=== PATIENT | female | born 1965 | race Caucasian/White ===

== ENCOUNTER 2020-01-04 08:25 | Outpatient (REF) | payer OTHER, SELFPAY ==
[2020-01-04 09:13] LABS: MANUAL DIFF FLAG NO
[2020-01-04 09:15] LABS: Basophils Percent Auto 0.2 % (0-2); Eosinophils Absolute Auto 0.1 X10*3/uL (0.0-0.4); Eosinophils Percent Auto 2.7 % (0-4); Hematocrit 42.2 % (37-47); Hemoglobin 13.9 g/dl (12.0-16.0); Imm Gran Abs Auto 0.01 X10*3/uL (0.00-0.03); Imm Gran Pct Auto 0.2 % (0.0-0.4); Lymphocytes Percent Auto 38.1 % (20-40); Mean Corpuscular HGB Conc 32.9 g/dl (31.0-35.0); Mean Corpuscular Hemoglobin 28.7 pg (27.0-33.0); Mean Platelet Volume 10.4 fL (9.4-12.3); Monocytes Absolute Auto 0.5 X10*3/uL (0.1-1.2); Monocytes Percent Auto 8.9 % (2-11); Neutrophils Absolute Auto 2.6 X10*3/uL (2.0-8.3); Neutrophils Percent Auto 49.9 % (45-73); Platelet Count 267 X10*3/uL (160-400); Red Blood Count 4.85 X10*6/uL (4.20-5.50); White Blood Count 5.2 X10*3/uL (4.8-10.8)
[2020-01-04 09:38] LABS: Alanine Aminotransferase 19 U/L (0-31); Albumin Level 4.3 g/dL (3.5-5.0); Alkaline Phosphatase 83 U/L (39-117); Anion Gap 10 (12-20); Aspartate Amino Transferase 16 U/L (5-31); Bilirubin Total 0.5 mg/dL (0.0-1.0); Blood Urea Nitrogen 17 mg/dL (9-16); Calcium 8.5 mg/dL (8.4-10.2); Carbon Dioxide 26 mmol/L (22-29); Chloride 108 mmol/L (96-108); Cholesterol 206 mg/dL; Estimated Glomerular Filt Rate > 60; Glucose Fasting 90 mg/dL (60-99); HDL Cholesterol 46 mg/dL; LDL Cholesterol Calculated 139 mg/dl; Potassium 4.3 mmol/l (3.3-5.1); Sodium 140 mmol/L (135-145); Total Protein 7.2 g/dL (6.5-8.0); Triglycerides 105 mg/dL
== END 2020-01-04 08:26 | disposition home or self-care (01) ==
LOC: HO.LAB 08:25
PROVIDERS: PCP Internal Medicine; Visit Provider Internal Medicine
DX: Z00.00 Encounter for general adult medical examination without abnormal findings (principal); Z13.31 Encounter for screening for depression; N64.4 Mastodynia; E78.00 Pure hypercholesterolemia, unspecified
CPT/HCPCS: 36415; 80053; 80061; 85025

== ENCOUNTER 2020-06-09 22:06 | Emergency (ER) | payer OTHER, SELFPAY ==
--- NOTE | ~2020-06-09 | CT_ITS ---
EXAMINATION: CT ABDOMEN AND PELVIS WITHOUT CONTRAST CLINICAL INFORMATION: Left flank pain. COMPARISON: 01/27/2016. TECHNIQUE: Contiguous axial thin section helical images of the abdomen and pelvis were performed without oral or IV contrast. The data set was reformatted in the coronal and sagittal planes and reviewed on an independent workstation. DLP: 613 mGy-cm. FINDINGS: The visualized lung bases are clear. The visualized portions of the heart are unremarkable. The liver is of normal size and attenuation without focal lesions nor intrahepatic biliary ductal dilation. A normal gallbladder is identified. There is no wall thickening or discernible pericholecystic fluid. The spleen, pancreas, adrenal glands are unremarkable. Both kidneys are of normal size and attenuation. There are bilateral parapelvic cysts. Within the lower pole of the right kidney, there is a 5 mm nonobstructive calculus. Within the upper pole of left kidney, there is a 2 mm nonobstructive calculus. There is mild left perinephric stranding. No ureteral calculi are identified. There is no abdominal free fluid. There is neither mesenteric nor retroperitoneal lymphadenopathy. Normal unopacified loops of small and large bowel are identified. There is no pelvic free fluid. The urinary bladder is unremarkable. There is neither pelvic nor inguinal lymphadenopathy. Bone windows: Neither sclerotic nor lytic bone lesions are identified. CT/CT abdomen pelvis wo con IMPRESSION: Bilateral parapelvic cysts. Nonobstructive renal calculi bilaterally. No obstructing ureteral calculi. Automated exposure control (Care Dose) Adjustment of the mA and/or kv according to patient size (this includes techniques or standardized protocols for targeted exams where dose is matched to indication / reason for exam; i.e. extremities or head).
[2020-06-09 22:40] LABS: MANUAL DIFF FLAG NO
[2020-06-09 22:41] LABS: Basophils Percent Auto 0.2 % (0-2); Eosinophils Absolute Auto 0.1 X10*3/uL (0.0-0.4); Eosinophils Percent Auto 0.9 % (0-4); Hematocrit 43.1 % (37-47); Hemoglobin 14.1 g/dl (12.0-16.0); Imm Gran Abs Auto 0.04 X10*3/uL (0.00-0.03); Imm Gran Pct Auto 0.3 % (0.0-0.4); Lymphocytes Absolute Auto 1.7 X10*3/uL (1.2-4.9); Lymphocytes Percent Auto 14.8 % (20-40); Mean Corpuscular HGB Conc 32.7 g/dl (31.0-35.0); Mean Corpuscular Hemoglobin 28.8 pg (27.0-33.0); Mean Corpuscular Volume 88.1 fL (80-98); Mean Platelet Volume 10.1 fL (9.4-12.3); Monocytes Percent Auto 8.8 % (2-11); Neutrophils Absolute Auto 8.7 X10*3/uL (2.0-8.3); Platelet Count 258 X10*3/uL (160-400); Red Blood Count 4.89 X10*6/uL (4.20-5.50); Red Cell Distribution Width 12.9 % (11.0-16.0); White Blood Count 11.6 X10*3/uL (4.8-10.8)
[2020-06-09 23:10] LABS: Alanine Aminotransferase 13 U/L (0-31); Albumin Level 4.3 g/dL (3.5-5.0); Alkaline Phosphatase 93 U/L (39-117); Anion Gap 15 (12-20); Aspartate Amino Transferase 14 U/L (5-31); Bilirubin Direct 0.2 mg/dL (0.0-0.5); Bilirubin Total 0.5 mg/dL (0.0-1.0); Blood Urea Nitrogen 19 mg/dL (9-16); Calcium 9.2 mg/dL (8.4-10.2); Carbon Dioxide 23 mmol/L (22-29); Chloride 106 mmol/L (96-108); Estimated Glomerular Filt Rate > 60; Glucose Random 103 mg/dL (60-115); Lipase 24 U/L (8-78); Potassium 4.2 mmol/L (3.3-5.1); Sodium 140 mmol/L (135-145); Total Protein 7.5 g/dL (6.5-8.0)
[2020-06-09 23:19] VITALS: BP 125/75; PULSE 116; RESP 18; TEMP 36.8; O2SAT 99; BMI 32.0
[2020-06-10 01:07] VITALS: BP 117/74; PULSE 97; RESP 16; TEMP 36.5; O2SAT 97
--- NOTE | 2020-06-10 01:39 | ED_ITS ---
HPI - Abdominal Pain General Chief Complaint: Abdominal Pain Stated Complaint: ABD PAIN,LT FLANK PAIN Time Seen by Provider: 06/10/20 00:25 Source: patient Mode of arrival: ambulatory History of Present Illness HPI narrative: 55-year-old female with history of renal colic who presents with left-sided flank pain radiating into the left groin area that started yesterday and she treated at home with ibuprofen. This would has not been associated with fever, chills, nausea, vomiting, urinary pain/burning/frequency. Related Data Allergies Allergy/AdvReac Type Severity Reaction Status Date / Time No Known Allergies Allergy Verified 06/09/20 23:23 Review of Systems Review of Systems Pertinent positives and negatives as stated in HPI 10 point review of systems is otherwise negative. Physical Exam Vital Signs: Vital Signs: Last Vital Signs Temp 97.7 F 06/10/20 01:07 Pulse 97 06/10/20 01:07 Resp 16 06/10/20 01:07 BP 117/74 06/10/20 01:07 Pulse Ox 97 06/10/20 01:07 Body Mass Index 32.0 VITAL SIGNS: Reviewed. GENERAL: Well developed, well nourished, in no acute distress. HEAD: Normocephalic/atraumatic NOSE: Nares patent bilateral OROPHARYNX: no oral lesions noted, posterior pharynx clear NECK: Supple, no adenopathy LUNGS: Normal breath sounds. No adventitious sounds or accessory muscle use. SpO2<97> CARDIOVASCULAR: Regular rate and rhythm without noted murmurs ABDOMEN: Soft, non-tender, non-distended with bowel sounds, no CVA tenderness NEUROLOGIC: Alert and oriented x 4. Course Course Course Narrative: 55-year-old female with history and clinical presentation consistent with renal colic. At the time of examination patient has had complete resolution of her symptoms and review of all investigations shows nonobstructing renal calculi. All results and findings were discussed with the patient at bedside and she was encouraged to increase fluid hydration especially with water and use [id number] Tylenol/ibuprofen for pain control. MDM - Abdominal Pain Lab Data Result diagrams: 06/09/20 22:31 06/09/20 22:31 Labs: Lab Results 06/09/20 06/09/20 Range/Units 22:31 22:31 WBC 11.6 H (4.8-10.8) X10*3/uL RBC 4.89 (4.20-5.50) X10*6/uL Hgb 14.1 (12.0-16.0) g/dl Hct 43.1 (37-47) % MCV 88.1 (80-98) fL MCH 28.8 (27.0-33.0) pg MCHC 32.7 (31.0-35.0) g/dl RDW 12.9 (11.0-16.0) % Plt Count 258 (160-400) X10*3/uL MPV 10.1 (9.4-12.3) fL Immature Gran % (Auto) 0.3 (0.0-0.4) % Neut % (Auto) 75.0 H (45-73) % Lymph % (Auto) 14.8 L (20-40) % Nye % (Auto) 8.8 (2-11) % Eos % (Auto) 0.9 (0-4) % Baso % (Auto) 0.2 (0-2) % Lymph # (Auto) 1.7 (1.2-4.9) X10*3/uL Nye # (Auto) 1.0 (0.1-1.2) X10*3/uL Eos # (Auto) 0.1 (0.0-0.4) X10*3/uL Baso # (Auto) 0.0 (0.0-0.2) X10*3/uL Abs Immat Gran (auto) 0.04 H (0.00-0.03) X10*3/uL Absolute Neuts (auto) 8.7 H (2.0-8.3) X10*3/uL Absolute Nucleated RBC 0.000 (0.0-0.012) X10*3/uL Nucleated RBC % (auto) 0.0 (0.0-0.2) /100WBC Sodium 140 (135-145) mmol/L Potassium 4.2 (3.3-5.1) mmol/L Chloride 106 (96-108) mmol/L Carbon Dioxide 23 (22-29) mmol/L Anion Gap 15 (12-20) BUN 19 H (9-16) mg/dL Creatinine 0.87 (0.5-1.4) mg/dL Estim Creat Clear Calc TNP Estimated GFR > 60 Random Glucose 103 (60-115) mg/dL Calcium 9.2 D (8.4-10.2) mg/dL Total Bilirubin 0.5 (0.0-1.0) mg/dL Direct Bilirubin 0.2 (0.0-0.5) mg/dL AST 14 (5-31) U/L ALT 13 (0-31) U/L Alkaline Phosphatase 93 (39-117) U/L Total Protein 7.5 (6.5-8.0) g/dL Albumin 4.3 (3.5-5.0) g/dL Lipase 24 (8-78) U/L Discharge Plan Discharge Clinical Impression: Renal colic Patient Disposition: Home, Self-Care Instructions: Renal Colic (ED) Additional Instructions: Recommend using [id number] Tylenol/ibuprofen as needed for pain control. Increase water intake. Follow-up with your primary care provider in the next 2-3 days. Do not hesitate to return to the emergency department should you experience any acute worsening of your symptoms. Referrals: Virgie Estrella MD [Primary Care Provider] - 2 days (Re-evaluation after seen in the ER for renal colic) Jeremy Avila MD [Physician] - 2 days (Evaluation and outpatient management for renal colic and history of.) Print Language: Polish [facility] Past Medical History Source: nursing notes reviewed Medical History Kidney stones Social History Social History Alcohol intake: former Smoking Status: Never smoker Use of substances other than those prescribed or required for medical reasons: No Advance Directives: No
[2020-06-10 02:16] LABS: Glucose Urine UA NEG (NEG); Leukocyte Esterase Urine NEG (NEG); Nitrite Urine NEG (NEG); PH 6.5 (5.0-8.0); Urine Blood 3+ (NEG); Urine Ketones NEG (NEG); Urine Protein NEG (NEG-TRACE)
[2020-06-10 02:21] LABS: Appearance Urine CLEAR; Color Urine YELLOW
[2020-06-10 02:22] LABS: Bacteria Urine 2+ /LPF; Squamous Epithelial Cell Urine 1+ /LPF
== END 2020-06-10 02:14 | disposition home or self-care (01) ==
PROVIDERS: Emergency Provider Student in an Organized Health Care Education/Training Program; PCP Internal Medicine
DX: N20.0 Calculus of kidney (principal); N28.1 Cyst of kidney, acquired; R10.9 Unspecified abdominal pain; Z87.442 Personal history of urinary calculi
CPT/HCPCS: 36415; 74176; 80048; 80076; 81001; 83690; 85025; 99284

== ENCOUNTER → 2020-07-08 13:57 | Outpatient (BNVA) | payer OTHER, SELFPAY | PROVIDERS: PCP Internal Medicine; Visit Provider Urology | DX: N20.0 Calculus of kidney (principal) | CPT/HCPCS: 99202 ==

== ENCOUNTER 2020-11-05 14:25 | Emergency (ER) | payer OTHER, SELFPAY ==
[2020-11-05 14:36] VITALS: BP 122/80; PULSE 95; RESP 17; TEMP 36.7; O2SAT 98; BMI 30.1
--- NOTE | 2020-11-05 14:38 | ED.GENADULT ---
HPI - General Adult General Chief complaint: General Medical Stated complaint: VACCINE REACTION FLU SYMPTONS Time Seen by Provider: 11/05/20 14:37 Source: patient Mode of arrival: ambulatory Limitations: no limitations History of Present Illness HPI narrative: 55 y/o female presenting to the ER with generalized body aches, fatigue and nausea for the last 6 days after she got her 1st COVID vaccination last Monday. She reports the last few days she has been vomiting and feeling weak. She is not SOB or having chest pain. She would like some medication for the nausea. She has no abdominal pain just soreness from vomiting. No fever but she has some sweats at night that she thinks are hot flashes. No known exposure to COVID prior to her vaccination. MD complaint: nausea and body aches s/p covid vax Onset (ago): day(s) (6) Location: back, abdomen, upper extremity and lower extremity Radiation: non-radiation Severity: moderate Severity scale (1-10): 5 Quality: aching Pain Consistency: intermittent Relieving factors: none Exacerbating factors: eating Associated symptoms: denies other symptoms, loss of appetite, malaise, nausea/vomiting and weakness Treatments prior to arrival: none Related Data Home Medications Medication Instructions Recorded Confirmed meclizine 12.5 mg tablet 12.5 mg PO TID 07/08/20 polyethylene glycol 3350 17 17 g PO DAILY 07/08/20 gram/dose oral powder triamcinolone acetonide 0.5 % appl TOPICAL BID 07/08/20 topical cream Previous Rx's Medication Instructions Recorded allopurinol 100 mg tablet 100 mg PO DAILY 90 Days #90 tab 07/08/20 pyridoxine (vitamin B6) 100 mg 100 mg PO DAILY 90 Days #90 tab 07/08/20 tablet ondansetron 4 mg disintegrating 4 mg PO Q8H PRN #10 tab 11/05/20 tablet Allergies Allergy/AdvReac Type Severity Reaction Status Date / Time No Known Allergies Allergy Verified 07/08/20 14:04 Review of Systems Review of Systems: Constitutional: No Fever, No Chills ENT/Mouth: No sore throat, No Rhinorrhea, No Swallowing Difficulty Cardiovascular: No Chest Pain, No SOB Respiratory: No Cough, No Sputum Gastrointestinal:+ Nausea, + Vomiting, No Diarrhea, No abdominal Pain Genitourinary: No Dysuria, No Urinary Frequency, No Hematuria Musculoskeletal: No joint pain, + Myalgias Skin: No Skin Lesions, No rash Neuro: + Weakness, No Numbness, No Dizziness, + Headache Psych: No Anxiety/Panic, No Depression Heme/Lymph: No Bruising, No Lymphadenopathy PMFSH Past Medical History Medical History (Updated 11/05/20 @ 15:18 by CHRISTINA Gonzales) Kidney stones Social History Social History Alcohol intake: former Advance Directives: No Patient : No Physical Exam Vital Signs: Vital Signs: Last Vital Signs Temp 98.1 F 11/05/20 14:36 Pulse 95 11/05/20 14:36 Resp 17 11/05/20 14:36 BP 122/80 11/05/20 14:36 Pulse Ox 98 11/05/20 14:36 Body Mass Index 30.1 Appearance: Alert. Oriented X3. No acute distress. Eyes: Pupils equal, round and reactive to light. ENT: Pharynx normal. Neck: Normal inspection. Neck supple. CVS: Normal heart rate and rhythm. Pulses normal. Respiratory: No respiratory distress. Breath sounds normal. Abdomen: Soft and nontender. +BS x4 Skin: Skin warm and dry. Normal skin color. Normal skin turgor. No rashes. Extremities: No lower extremity edema. Neuro: Oriented X 3. No motor deficit. No sensory deficit. Course Course Course Narrative: 55 y/o presenting not feeling well for 6 days after her COVID vaccine. She has normal VS and an unremarkable physical exam. Will give SL zofran, get COVID swab and monitor. PO trial after Zofran Reevaluation(s) Reevaluation #1: Patient tolerating PO and appears well. She can be sent home with zofran and supportive care. Agrees with plan. Medical Decision Making Lab Data Labs: Lab Results 11/05/20 Range/Units 15:20 COVID-19 ([facility]) Negative (Negative) COVID-19 Clin Com See Note Critical Care Time Critical Care Time Critical Care Time: No Discharge Plan Discharge Clinical Impression: Nausea Patient Disposition: Home, Self-Care Instructions: Acute Nausea and Vomiting (ED) Additional Instructions: Your COVID test was negative. Take the prescribed anti-nausea medication as directed Rest and stay hydrated. Drink plenty of fluids. Stick to a bland diet while you are not feeling well. Take Motrin and/or Tylenol as needed for body aches. Follow up with your doctor as needed. Recommend proceeding with your 2nd dose of your COVID vaccine when directed Prescriptions: New ondansetron 4 mg tablet,disintegrating 4 mg PO Q8H PRN (Reason: nausea and vomiting) Qty: 10 RF: 0 No Action allopurinol 100 mg tablet 100 mg PO DAILY 90 Days Qty: 90 RF: 1 pyridoxine (vitamin B6) 100 mg tablet 100 mg PO DAILY 90 Days Qty: 90 RF: 1 Referrals: Virgie Estrella MD [Primary Care Provider] - 2 days (f/u adverse reaction to COVID vaccine)
[2020-11-05] MEDS: Ondansetron ODT 4 MG TAB.RAPDIS TRANSLINGU (15:18)
[2020-11-05 15:49] LABS: COVID-19 Test Negative (Negative)
== END 2020-11-05 16:08 | disposition home or self-care (01) ==
PROVIDERS: Physician Assistant; Emergency Provider Emergency Medicine; PCP Internal Medicine
DX: R11.0 Nausea (principal); Z20.822 Contact with and (suspected) exposure to COVID-19
CPT/HCPCS: 36415; 87635; 99283

== ENCOUNTER 2020-12-31 15:21 | Outpatient (REF) | payer OTHER, SELFPAY ==
--- NOTE | ~2020-12-31 | US_ITS ---
EXAMINATION: US RETROPERITONEAL LIMITED (RENAL ONLY) CLINICAL INFORMATION: Calculus of kidney. COMPARISON: CT abdomen and pelvis 06/10/2020. Renal ultrasound 06/20/2011 and 05/11/2009. TECHNIQUE: Real-time imaging of the kidneys. FINDINGS: RIGHT KIDNEY: 11.8 x 6.4 x 4.7 cm (SAG x AP x TRV). The kidney is normal in size, contour, and echogenicity. Renal cortical thickness is normal. Within the upper pole of the right kidney there is a 2.1 cm simple appearing partially exophytic cyst. Several parapelvic cysts are also noted. There is 8 mm nonobstructing mid pole calculus with a few other punctate echogenic foci which either represent tiny nonobstructing calculi versus vascular calcifications. There is no hydronephrosis of the right kidney. LEFT KIDNEY: 11.3 x 5.1 x 5.1 cm (SAG x AP x TRV). The kidney is normal in size, contour, and echogenicity. Renal cortical thickness is normal. Within the upper pole of the left kidney there is a 1.8 cm simple appearing exophytic cyst. Numerous parapelvic cysts are also identified. A few small nonobstructing renal calculi are appreciated, the largest measuring 7 mm. There is no hydronephrosis. US/US renal BI IMPRESSION: 1. Cortical and parapelvic cysts are noted bilaterally. 2. Nonobstructing renal calculi noted bilaterally. 3. No hydronephrosis.
== END 2020-12-31 15:22 | disposition home or self-care (01) ==
LOC: HO.US 15:21
PROVIDERS: PCP Internal Medicine
DX: N20.0 Calculus of kidney (principal)
CPT/HCPCS: 76775

== ENCOUNTER 2021-01-02 08:53 | Outpatient (REF) | payer OTHER, SELFPAY ==
[2021-01-02 09:13] LABS: MANUAL DIFF FLAG NO
[2021-01-02 10:53] LABS: Basophils Percent Auto 0.5 % (0-2); Eosinophils Absolute Auto 0.2 X10*3/uL (0.0-0.4); Eosinophils Percent Auto 3.1 % (0-4); Hematocrit 43.9 % (37.0-47.0); Hemoglobin 14.1 g/dl (12.0-16.0); Imm Gran Abs Auto 0.01 X10*3/uL (0.00-0.03); Imm Gran Pct Auto 0.2 % (0.0-0.4); Lymphocytes Absolute Auto 2.1 X10*3/uL (1.2-4.9); Lymphocytes Percent Auto 37.3 % (20-40); Mean Corpuscular HGB Conc 32.1 g/dl (31.0-35.0); Mean Corpuscular Volume 90.3 fL (80.0-98.0); Mean Platelet Volume 10.7 fL (9.4-12.3); Monocytes Absolute Auto 0.6 X10*3/uL (0.1-1.2); Monocytes Percent Auto 10.1 % (2-11); Neutrophils Absolute Auto 2.7 x10*3/uL (2.0-8.3); Neutrophils Percent Auto 48.8 % (45-73); Platelet Count 273 X10*3/uL (160-400); Red Blood Count 4.86 X10*6/uL (4.20-5.50); Red Cell Distribution Width 13.5 % (11.0-16.0); White Blood Count 5.5 X10*3/uL (4.8-10.8)
[2021-01-02 11:09] LABS: Alanine Aminotransferase 19 U/L (0-31); Albumin Level 4.2 g/dL (3.5-5.0); Alkaline Phosphatase 79 U/L (39-117); Anion Gap 10 (12-20); Aspartate Amino Transferase 18 U/L (5-31); Bilirubin Total 0.7 mg/dL (0.0-1.0); Blood Urea Nitrogen 15 mg/dL (9-16); Calcium 8.9 mg/dL (8.4-10.2); Carbon Dioxide 27 mmol/L (22-29); Chloride 109 mmol/L (96-108); Cholesterol 214 mg/dL; Estimated Glomerular Filt Rate > 60; Glucose Random 87 mg/dL (60-115); HDL Cholesterol 52 mg/dL; LDL Cholesterol Calculated 146 mg/dl; Potassium 4.8 mmol/L (3.3-5.1); Sodium 141 mmol/L (135-145); Total Protein 7.3 g/dL (6.5-8.0); Triglycerides 84 mg/dL
== END 2021-01-02 08:54 | disposition home or self-care (01) ==
LOC: HO.LAB 08:53
PROVIDERS: PCP Internal Medicine; Visit Provider Internal Medicine
DX: Z00.00 Encounter for general adult medical examination without abnormal findings (principal); E78.00 Pure hypercholesterolemia, unspecified; N64.4 Mastodynia
CPT/HCPCS: 36415; 80053; 80061; 85025

== ENCOUNTER → 2021-02-03 14:32 | Outpatient (BNVA) | payer OTHER, SELFPAY | PROVIDERS: PCP Internal Medicine ==

== ENCOUNTER 2021-07-07 15:11 | Outpatient (REF) | payer OTHER, SELFPAY ==
--- NOTE | ~2021-07-07 | US_ITS ---
EXAMINATION: US RETROPERITONEAL LIMITED (RENAL ONLY) CLINICAL INFORMATION: Calculus of kidney. COMPARISON: Renal ultrasound 12/31/2020, CT abdomen and pelvis 06/10/2020, renal ultrasound 06/20/2011. TECHNIQUE: Real-time imaging of the kidneys. FINDINGS: RIGHT KIDNEY: 12.0 x 5.6 x 6.9 cm (SAG x AP x TRV). The kidney is normal in size, contour, and echogenicity. Renal cortical thickness is normal. No hydronephrosis. There is an anechoic cyst in the upper pole measuring 2.7 x 2.3 x 2.3, midpole measuring 1.9 x 1.7 x 1.9 cm, peripelvic midpole measuring 1.9 x 2.1 x 1.3 cm, and peripelvic upper pole measuring 2.4 x 1.8 x 2.3 cm. There are clusters of small echogenic stones midpole measuring 0.8 x 0.7 x 0.9 cm. LEFT KIDNEY: 11.5 x 5.4 x 5.1 cm (SAG x AP x TRV). The kidney is normal in size, contour, and echogenicity. Renal cortical thickness is normal. No hydronephrosis. There are multiple anechoic cysts in the upper pole measuring 1.9 x 1.6 x 1.9 cm, peripelvic region measuring 2.6 x 1.7 x 1.7 cm and midpole measuring 1.6 x 2.2 x 2.1 cm. There are small clusters of echogenic nonobstructing stones in the upper pole measuring 1.3 x 0.8 x 0.5 cm and midpole measuring 0.4 x 0.5 x 0.5 cm. US/US renal BI IMPRESSION: Bilateral anechoic cysts. Bilateral nonobstructive echogenic stones, as described above.
== END 2021-07-07 15:12 | disposition home or self-care (01) ==
LOC: HO.US 15:11
DX: N20.0 Calculus of kidney (principal)
CPT/HCPCS: 76775

== ENCOUNTER → 2021-09-13 14:06 | Outpatient (BNVA) | payer OTHER, SELFPAY | PROVIDERS: PCP Internal Medicine | DX: N20.0 Calculus of kidney (principal) | CPT/HCPCS: 99212 ==

== ENCOUNTER 2021-10-06 08:00 | Outpatient (REF) | payer OTHER, SELFPAY ==
[2021-10-06 08:08] LABS: MANUAL DIFF FLAG NO
[2021-10-06 09:14] LABS: Basophils Percent Auto 0.5 % (0-2); Eosinophils Absolute Auto 0.2 X10*3/uL (0.0-0.4); Eosinophils Percent Auto 3.3 % (0-4); Hematocrit 42.4 % (37.0-47.0); Hemoglobin 13.7 g/dl (12.0-16.0); Imm Gran Abs Auto 0.02 X10*3/uL (0.00-0.03); Imm Gran Pct Auto 0.3 % (0.0-0.4); Lymphocytes Absolute Auto 2.7 X10*3/uL (1.2-4.9); Lymphocytes Percent Auto 41.3 % (20-40); Mean Corpuscular HGB Conc 32.3 g/dl (31.0-35.0); Mean Corpuscular Hemoglobin 28.4 pg (27.0-33.0); Mean Platelet Volume 10.6 fL (9.4-12.3); Monocytes Absolute Auto 0.5 X10*3/uL (0.1-1.2); Monocytes Percent Auto 7.8 % (2-11); Neutrophils Percent Auto 46.8 % (45-73); Platelet Count 249 X10*3/uL (160-400); Red Blood Count 4.82 X10*6/uL (4.20-5.50); Red Cell Distribution Width 13.2 % (11.0-16.0); White Blood Count 6.4 X10*3/uL (4.8-10.8)
[2021-10-06 09:40] LABS: Alanine Aminotransferase 21 U/L (0-31); Albumin Level 4.1 g/dL (3.5-5.0); Alkaline Phosphatase 85 U/L (39-117); Anion Gap 15 (12-20); Aspartate Amino Transferase 18 U/L (5-31); Bilirubin Total 0.4 mg/dL (0.0-1.0); Blood Urea Nitrogen 17 mg/dL (9-16); Calcium 9.1 mg/dL (8.4-10.2); Carbon Dioxide 24 mmol/L (22-29); Chloride 108 mmol/L (96-108); Cholesterol 213 mg/dL; Estimated Glomerular Filt Rate > 60; Glucose Random 87 mg/dL (60-115); HDL Cholesterol 52 mg/dL; LDL Cholesterol Calculated 140 mg/dl; Potassium 4.6 mmol/L (3.3-5.1); Sodium 142 mmol/L (135-145); Total Protein 7.3 g/dL (6.5-8.0); Triglycerides 109 mg/dL
== END 2021-10-06 08:01 | disposition home or self-care (01) ==
LOC: HO.LAB 08:00
PROVIDERS: PCP Internal Medicine; Visit Provider Internal Medicine
DX: E78.00 Pure hypercholesterolemia, unspecified (principal); L29.2 Pruritus vulvae
CPT/HCPCS: 36415; 80053; 80061; 85025

== ENCOUNTER 2021-10-16 19:25 | Emergency (ER) | payer OTHER, SELFPAY ==
[2021-10-16 19:36] VITALS: BP 104/77; PULSE 106; RESP 18; TEMP 36.3; O2SAT 97; BMI 31.3
== END 2021-10-16 22:07 | disposition left against medical advice (07) ==
PROVIDERS: Emergency Provider Emergency Medicine
DX: M79.602 Pain in left arm (principal)
CPT/HCPCS: 99281

== ENCOUNTER 2021-12-04 10:03 | Inpatient (IN) | payer OTHER, SELFPAY ==
[2021-12-04] VITALS (7 sets, daily range): BP systolic 115–160; BP diastolic 69–96; PULSE 69–97; RESP 16–18; TEMP 36.5–37.2; O2SAT 94–100; BMI 31.6
--- NOTE | 2021-12-04 10:15 | ED.ABDPAIN ---
HPI - Abdominal Pain General Chief Complaint: Abdominal Pain Stated Complaint: Flank Pain Time Seen by Provider: 12/04/21 10:05 Source: patient and EMS Mode of arrival: EMS Limitations: no limitations History of Present Illness HPI narrative: 56-year-old female came in for evaluation of left flank pain. Left flank pain started 3 days ago described as dull aching pain to the left flank area with no radiation, pain was associated with nausea and vomiting, patient took ibuprofen relieved the pain then pain returned this morning feels similar to previous pain when she had kidney stones. Patient never had intra-abdominal surgery or needed surgical intervention to remove the kidney stone. No dysuria, no hematuria, no vaginal discharge, no vaginal bleeding. None no diarrhea, normal bowel movement yesterday. Related Data Home Medications Medication Instructions Recorded Confirmed meclizine 12.5 mg tablet 12.5 mg PO TID 07/08/20 polyethylene glycol 3350 17 17 g PO DAILY 07/08/20 gram/dose oral powder triamcinolone acetonide 0.5 % appl topical BID 07/08/20 topical cream erythromycin 5 mg/gram (0.5 %) eye 0 mg ophthalmic (eye) BID 09/13/21 ointment mecobalamin (vitamin B12) 1,000 1,000 mcg PO DAILY 10/15/21 mcg chewable tablet dexamethasone 4 mg tablet 0 mg PO 10/22/21 Previous Rx's Medication Instructions Recorded allopurinol 100 mg tablet 100 mg PO DAILY 90 days #90 tabs 07/08/20 ondansetron 4 mg disintegrating 4 mg PO Q8H PRN nausea and 11/05/20 tablet vomiting #10 tabs pyridoxine (vitamin B6) 100 mg 100 mg PO DAILY 90 days #90 tabs 08/04/21 tablet cyclobenzaprine 10 mg tablet 10 mg PO TID PRN muscle spasm 7 10/15/21 days #20 tabs meloxicam 15 mg tablet 15 mg PO DAILY PRN pain 2 weeks 10/15/21 #14 tabs gabapentin 300 mg capsule 300 mg PO BID 14 days #28 caps 10/22/21 Allergies Allergy/AdvReac Type Severity Reaction Status Date / Time No Known Allergies Allergy Verified 10/22/21 13:41 Review of Systems Review of Systems All other systems are reviewed and are negative Constitutional: Reports as per HPI and Reports no additional constitutional complaints Eyes: Reports as per HPI and Reports no additional eye complaints Reports system reviewed and no additional complaints, except as documented Cardiovascular: Reports as per HPI and Reports no additional cardiovascular complaints Respiratory: Reports as per HPI and Reports no additional respiratory complaints Gastrointestinal: Reports as per HPI and Reports no additional gastrointestinal complaints Genitourinary: Reports no additional female genitourinary complaints Musculoskeletal: Reports no additional musculoskeletal complaints Skin/Breast: Reports system reviewed and no additional complaints, except as docu Psychiatric: Reports no additional psychiatric complaints Endocrine: Reports no additional endocrine complaints Hematologic/Lymphatic: Reports no additional hematologic/lymphatic complaints Allergic/Immunologic: Reports no additional allergic/immunologic complaints Reports system reviewed and no additional complaints, except as documented and Reports Abnormal speech present [facility] Past Medical History Medical History Kidney stones Social History Social History Alcohol intake: former Advance Directives: No Advance Directives Information Provided: Yes Physical Exam ED Vital Signs: Vital Signs - 24 hr 12/04/21 10:07 12/04/21 10:36 12/04/21 12:09 Temperature 97.8 F 97.7 F Pulse Rate 88 76 Respiratory Rate 16 18 16 Blood Pressure 153/96 H 129/74 Pulse Oximetry 95 94 Oxygen Delivery Method Room Air Room Air 12/04/21 15:03 Temperature 98.0 F Pulse Rate 69 Respiratory Rate 17 Blood Pressure 115/71 Pulse Oximetry 97 Oxygen Delivery Method Room Air BMI result Body Mass Index 31.6 Vital signs have been reviewed as appeared to be correct. Blood pressure normal. Heart rate normal. Respiration rate normal. Temperature normal. Oxygen saturation normal. Appearance: Alert. Oriented X3. No acute distress. Head: Normal external exam. Normocephalic. Atraumatic. No Mckinney signs noted. No raccoon eyes noted Eyes: PERRLA. EOMI. Conjunctiva and sclera normal. Eyelids normal. ENT: TM's Normal. Pharynx normal. Uvula midline. Moist mucous membranes. No trismus noted. No drooling noted. No muffled voice noted. Neck: Normal inspection. Neck supple. FROM. No adenopathy. Thyroid Normal. No meningeal signs. No neck mass noted. CVS: Normal heart rate and rhythm. Heart sound normal. No murmurs noted. Pulses normal throughout. Respiratory: No respiratory distress. Painless inspiration. Breath sounds normal. No wheezes/rales/rhonchi noted. Chest nontender. No accessory muscle usage noted or decreased air movement noted. Abdomen: Soft and nontender. Bowel sounds normal in all 4 quadrants. No distention noted. No organomegaly noted. No visible injury noted. Back: Left CVA tenderness. Full range of motion noted. Skin: Skin warm and dry. Normal skin color. Normal skin turgor. No rashes/lesions/lacerations noted. Extremities: No lower extremity edema. Extremities exhibit normal range of motion. Extremities nontender. Neuro: Oriented X 3. Cranial nerve exam: II-XII are grossly intact No motor deficit. No sensory deficit. Reflexes normal. Course Course Course Narrative: 56-year-old female with history of polycystic kidney disease and kidney stones came in with left flank pain for 3 days, CT revealed 4 mm left kidney stone that has been controlled with morphine and Toradol in the ED. CT also revealed incidental abnormal looking gallbladder highly suspicious for malignancy. Case discussed with Dr. Ponce who recommended to get a HIDA scan and MRI of the abdomen which is not available currently in this facility because there is no staff on the weekend. Will admit the patient to hospitalist service for further workup for her gallbladder abnormal looking on the ultrasound and a CT scan. Working diagnosis is HIDA scan, MRI of the abdomen, inpatient GI/IR consultation for possible biopsy. Absence of right upper quadrant tenderness, normal WBCs, normal LFTs making acute cholecystitis is unfavorable diagnosis. MDM - Abdominal Pain Medical Records Attestation: I reviewed the patient's medical records. Lab Data Attestation: I reviewed the patient's lab results. Result diagrams: 12/04/21 10:12/04/21 10:28 Labs: Lab Results 12/04/21 12/04/21 12/04/21 Range/Units 10:28 10:28 12:11 WBC 8.5 (4.8-10.8) X10*3/uL RBC 4.85 (4.20-5.50) X10*6/uL Hgb 13.8 (12.0-16.0) g/dl Hct 41.0 (37.0-47.0) % MCV 84.5 (80.0-98.0) fL MCH 28.5 (27.0-33.0) pg MCHC 33.7 (31.0-35.0) g/dl RDW 13.2 (11.0-16.0) % Plt Count 309 (160-400) X10*3/uL MPV 9.7 (9.4-12.3) fL Immature Gran % (Auto) 0.6 H (0.0-0.4) % Neut % (Auto) 68.6 (45-73) % Lymph % (Auto) 21.4 (20-40) % [place] % (Auto) 7.6 (2-11) % Eos % (Auto) 1.4 (0-4) % Baso % (Auto) 0.4 (0-2) % Lymph # (Auto) 1.8 (1.2-4.9) X10*3/uL [place] # (Auto) 0.7 (0.1-1.2) X10*3/uL Eos # (Auto) 0.1 (0.0-0.4) X10*3/uL Baso # (Auto) 0.0 (0.0-0.2) X10*3/uL Abs Immat Gran (auto) 0.05 H (0.00-0.03) X10*3/uL Absolute Neuts (auto) 5.9 (2.0-8.3) x10*3/uL Absolute Nucleated RBC 0.000 (0.0-0.012) X10*3/uL Nucleated RBC % (auto) 0.0 (0.0-0.2) /100WBC Sodium 142 (135-145) mmol/L Potassium 3.9 (3.3-5.1) mmol/L Chloride 107 (96-108) mmol/L Carbon Dioxide 22 (22-29) mmol/L Anion Gap 17 (12-20) BUN 15 (9-16) mg/dL Creatinine 0.84 (0.5-1.4) mg/dL Estim Creat Clear Calc 74.4 Estimated GFR > 60 Random Glucose 118 H (60-115) mg/dL Calcium 9.1 (8.4-10.2) mg/dL Total Bilirubin 0.6 (0.0-1.0) mg/dL Direct Bilirubin 0.2 (0.0-0.5) mg/dL AST 26 D (5-31) U/L ALT 17 (0-31) U/L Alkaline Phosphatase 78 (39-117) U/L Total Protein 7.2 (6.5-8.0) g/dL Albumin 4.3 (3.5-5.0) g/dL Lipase 19 (8-78) U/L Urine Color Yellow Urine Appearance Clear Urine pH 7.0 (5.0-9.0) Ur Specific [place] 1.010 (1.005-1.025) Urine Protein Negative (Neg-Trace) mg/dL Urine Glucose (UA) Negative (Negative) mg/dL Urine Ketones Trace (Negative) mg/dL Urine Blood Negative (Negative) Urine Nitrite Negative (Negative) Ur Leukocyte Esterase Trace H (Negative) Urine RBC 0-2 (0-2) /HPF Urine WBC 0-5 (0-5) /HPF Ur Squamous Epith Cells 3-5 (0-2) /HPF Urine Bacteria Trace (None Seen) Hyaline Casts 0-2 (0-2) /LPF Imaging Data Gallbladder ultrasound.: Attestation: I personally reviewed and interpreted this imaging study as follows: Radiologist's impression: Abnormal appearance of the gallbladder , seem to be markedly thickened wall with hypoechoic vascular structure within, this is concerning for possible gallbladder neoplasm versus chronic inflammation. ? CT scan - abdomen: Attestation: I personally reviewed and interpreted this imaging study as follows: Radiologist's impression: A 0.4 cm calculus in the left mid to distal ureter with mild left hydroureter. Assessment for left hydronephrosis is limited given the presence of peripelvic cysts. A few additional bilateral nonobstructing renal calculi, as described above. Right renal peripelvic cysts are redemonstrated. Bilateral cortical renal cysts as detailed above are not significantly changed compared to last CT. No further imaging followup of these finding is recommended. ? Small appendicolith is noted in the tip of the appendix. No CT evidence of acute appendicitis. ? Hyperdense appearance of the bladder contents which may represent significant volume sludge. Pericholecystic fat stranding. Recommend clinical correlation for possibility of acute cholecystitis. As clinically deemed necessary, consider correlation with ultrasound. ? Fleischner guidelines were followed. Discharge Plan Discharge Clinical Impression: Kidney stones, Gallbladder disease Patient Disposition: Admitted As Inpatient Prescriptions: No Action pyridoxine (vitamin B6) 100 mg tablet 100 mg PO DAILY 90 Days Qty: 90 1RF ondansetron 4 mg tablet,disintegrating 4 mg PO Q8H PRN (Reason: nausea and vomiting) Qty: 10 0RF mecobalamin (vitamin B12) 1,000 mcg tablet,chewable 1,000 mcg PO DAILY cyclobenzaprine 10 mg tablet 10 mg PO TID PRN (Reason: muscle spasm) 7 Days Qty: 20 0RF meloxicam 15 mg tablet 15 mg PO DAILY PRN (Reason: pain) 14 Days Qty: 14 0RF dexamethasone 4 mg tablet 0 mg PO gabapentin 300 mg capsule 300 mg PO BID 14 Days Qty: 28 0RF polyethylene glycol 3350 17 gram/dose powder 17 g PO DAILY meclizine 12.5 mg tablet 12.5 mg PO TID triamcinolone acetonide 0.5 % cream topical BID allopurinol 100 mg tablet 100 mg PO DAILY 90 Days Qty: 90 1RF erythromycin 5 mg/gram (0.5 %) ointment 0 mg ophthalmic (eye) BID
[2021-12-04] MEDS: 0.9 % Sodium Chloride 1,000 ML 999 ML IV ×2 (10:26→12:32)
[2021-12-04 10:33] LABS: MANUAL DIFF FLAG NO
[2021-12-04] MEDS: Morphine Sulfate 2 MG/ML CARTRIDGE 1 MG IVPUSH (10:36)
[2021-12-04] MEDS: Ketorolac Tromethamine 30 MG/ML VIAL IVPUSH (10:36)
[2021-12-04] MEDS: ondansetron HCL 4 MG/2 ML VIAL IVPUSH (10:37)
[2021-12-04 10:38] LABS: Basophils Percent Auto 0.4 % (0-2); Eosinophils Absolute Auto 0.1 X10*3/uL (0.0-0.4); Eosinophils Percent Auto 1.4 % (0-4); Hemoglobin 13.8 g/dl (12.0-16.0); Imm Gran Abs Auto 0.05 X10*3/uL (0.00-0.03); Imm Gran Pct Auto 0.6 % (0.0-0.4); Lymphocytes Absolute Auto 1.8 X10*3/uL (1.2-4.9); Lymphocytes Percent Auto 21.4 % (20-40); Mean Corpuscular HGB Conc 33.7 g/dl (31.0-35.0); Mean Corpuscular Hemoglobin 28.5 pg (27.0-33.0); Mean Corpuscular Volume 84.5 fL (80.0-98.0); Mean Platelet Volume 9.7 fL (9.4-12.3); Monocytes Absolute Auto 0.7 X10*3/uL (0.1-1.2); Monocytes Percent Auto 7.6 % (2-11); Neutrophils Absolute Auto 5.9 x10*3/uL (2.0-8.3); Neutrophils Percent Auto 68.6 % (45-73); Platelet Count 309 X10*3/uL (160-400); Red Blood Count 4.85 X10*6/uL (4.20-5.50); Red Cell Distribution Width 13.2 % (11.0-16.0); White Blood Count 8.5 X10*3/uL (4.8-10.8)
[2021-12-04 11:01] LABS: Alanine Aminotransferase 17 U/L (0-31); Albumin Level 4.3 g/dL (3.5-5.0); Alkaline Phosphatase 78 U/L (39-117); Anion Gap 17 (12-20); Aspartate Amino Transferase 26 U/L (5-31); Bilirubin Direct 0.2 mg/dL (0.0-0.5); Bilirubin Total 0.6 mg/dL (0.0-1.0); Blood Urea Nitrogen 15 mg/dL (9-16); Calcium 9.1 mg/dL (8.4-10.2); Carbon Dioxide 22 mmol/L (22-29); Chloride 107 mmol/L (96-108); Creatinine Clr Calc Pharmacy 74.4; Estimated Glomerular Filt Rate > 60; Glucose Random 118 mg/dL (60-115); Lipase 19 U/L (8-78); Potassium 3.9 mmol/L (3.3-5.1); Sodium 142 mmol/L (135-145); Total Protein 7.2 g/dL (6.5-8.0)
[2021-12-04 12:19] LABS: Appearance Urine Clear; Color Urine Yellow; Glucose Urine UA Negative (Negative); Leukocyte Esterase Urine Trace (Negative); Nitrite Urine Negative (Negative); UMIC TRIGGER UACC YES; Urine Blood Negative (Negative); Urine Ketones Trace mg/dL (Negative); Urine Protein Negative (Neg-Trace)
[2021-12-04 12:23] LABS: Bacteria Urine Trace (None Seen); Hyaline Casts Urine 0-2 /LPF (0-2); RBC Urine 0-2 /HPF (0-2); WBC Urine 0-5 /HPF (0-5)
[2021-12-04] MEDS: Acetaminophen 325 MG TABLET 650 MG PO (12:30)
--- NOTE | 2021-12-04 18:24 | PHA.MEDREC ---
Pharmacy Consult ? Medication Reconciliation Pharmacy has completed the medication reconciliation. pt only takes ibuprofen as needed currently
--- NOTE | 2021-12-04 18:31 | PM.IMHP ---
History of Present Illness Date of Service: 12/04/21 <CHRISTINA Durham - Last Filed: 12/04/21 18:53> Attending physician on admission: Vivian Ibarra <CHRISTINA Durham - Last Filed: 12/04/21 18:53> Chief Complaint: left flank pain <CHRISTINA Durham - Last Filed: 12/04/21 18:53> 56-year-old female with history of nephrolithiasis following with Urology outpatient presented to the ED this morning for evaluation of left flank pain ongoing for 3 days. Initially had been responsive to ibuprofen but did continue to worsen with the onset of nausea and vomiting on arrival to the hospital today as well as headache. She denies any radiation of the pain. Denies any fevers, chills, dysuria, hematuria, increased urinary frequency urgency, abdominal pain, diarrhea, constipation, blood in stool. Hematology studies were unremarkable, no leukocytosis. Renal function and electrolyte levels are normal. Urinalysis significant only for trace leukocytes, negative nitrates, negative bacteria. CT of the abdomen/pelvis showed 4 mm calculus in the left mid to distal ureter with mild left hydroureter, no hydronephrosis. Additional nonobstructing renal calculi also seen. There is a small appendicolith without appendicitis. Also abnormal appearance of the gallbladder contents possibly representing significant volume sludge as well as pericholecystic fat stranding. Follow-up ultrasound right upper quadrant again reflects abnormal appearance of the gallbladder with markedly thickened gallbladder wall with sludge with hypoechoic avascular structure within concerning for possible gallbladder neoplasm versus chronic inflammation. Patient is afebrile and vital signs are otherwise stable. Case discussed with general surgery recommending admission for further investigation of abnormal gallbladder. Denies smoking hx, etoh use, or illicit drug use. <CHRISTINA Durham - Last Filed: 12/04/21 18:53> Review of Systems Review of Systems: General: No fevers, malaise, unintentional weight loss Cardiovascular: No chest pain, palpitations, or leg edema Respiratory: No shortness of breath, wheezing, cough GI: +n/v. No abdominal pain, diarrhea, constipation, melena, hematochezia : No dysuria, hematuria, increased urinary frequency/urgency MSK:+ left flank pain Neuro: No headaches, weakness, paresthesias Skin: No rashes or lesions <CHRISTINA Durham - Last Filed: 12/04/21 18:53> [facility] Medical History: Medical History Kidney stones <CHRISTINA Durham - Last Filed: 12/04/21 18:53> Family History: Family History Paternal Uncle Lung cancer Father Esophageal cancer Brother Stomach cancer <CHRISTINA Durham - Last Filed: 12/04/21 18:53> Social History: Social History Alcohol intake: former Advance Directives: No Advance Directives Information Provided: Yes <CHRISTINA Durham - Last Filed: 12/04/21 18:53> Meds Allergies/Adverse reactions: Allergies Allergy/AdvReac Type Severity Reaction Status Date / Time No Known Allergies Allergy Verified 10/22/21 13:41 <CHRISTINA Durham - Last Filed: 12/04/21 18:53> Home medications: Home Medications Medication Instructions Recorded Confirmed Last Taken Type ibuprofen 600 mg tablet 600 mg PO BID PRN Pain, Moderate 12/04/21 12/04/21 Unknown History <CHRISTINA Durham - Last Filed: 12/04/21 18:53> Physical Exam Vital Signs and Narrative: Vital Signs: Last Vital Signs Temp 98.0 F 12/04/21 15:03 Pulse 72 12/04/21 17:40 Resp 17 12/04/21 17:40 BP 144/78 H 12/04/21 17:40 Pulse Ox 96 12/04/21 17:40 O2 Del Method 12/04/21 17:40 BMI result Body Mass Index 31.6 <CHRISTINA Durham - Last Filed: 12/04/21 18:53> Constitutional - Awake and Alert, No apparent distress Eyes - PERRLA, EOMI Cardiovascular - S1S2, RRR, No edema Respiratory - Normal lung expansion, Normal respiratory effort, No respiratory distress, CTA bilaterally Gastrointestinal - NT / ND; +BS; No rebound or guarding - No CVA tenderness Extremities - no calf tenderness bilaterally, no swelling Skin - Warm/Dry Neurological - Alert & oriented x3, 5/5 strength BUE and BLE Psychological - Appropriate affect <CHRISTINA Durham - Last Filed: 12/04/21 18:53> Results Labs CBC and Chem 7: : 12/04/21 10:28 12/04/21 10:28 <CHRISTINA Durham - Last Filed: 12/04/21 18:53> Labs: Laboratory Results - last 24 hr 12/04/21 12/04/21 12/04/21 10:28 10:28 12:11 MCV 84.5 MCH 28.5 MCHC 33.7 RDW 13.2 Plt Count 309 MPV 9.7 Immature Gran % (Auto) 0.6 H Neut % (Auto) 68.6 Lymph % (Auto) 21.4 [place] % (Auto) 7.6 Eos % (Auto) 1.4 Baso % (Auto) 0.4 Lymph # (Auto) 1.8 [place] # (Auto) 0.7 Eos # (Auto) 0.1 Baso # (Auto) 0.0 Abs Immat Gran (auto) 0.05 H Absolute Neuts (auto) 5.9 Absolute Nucleated RBC 0.000 Nucleated RBC % (auto) 0.0 Anion Gap 17 Estim Creat Clear Calc 74.4 Estimated GFR > 60 Random Glucose 118 H Calcium 9.1 Total Bilirubin 0.6 Direct Bilirubin 0.2 AST 26 D ALT 17 Alkaline Phosphatase 78 Total Protein 7.2 Albumin 4.3 Lipase 19 Urine Color Yellow Urine Appearance Clear Urine pH 7.0 Ur Specific [place] 1.010 Urine Protein Negative Urine Glucose (UA) Negative Urine Ketones Trace Urine Blood Negative Urine Nitrite Negative Ur Leukocyte Esterase Trace H Urine RBC 0-2 Urine WBC 0-5 Ur Squamous Epith Cells 3-5 Urine Bacteria Trace Hyaline Casts 0-2 <CHRISTINA Durham - Last Filed: 12/04/21 18:53> Imaging Radiologist's Impressions: Impressions Renal Ultrasound 12/04/21 11:12 IMPRESSION: *Numerous bilateral renal cysts compatible with patient history of polycystic kidney disease. *Nonobstructing stones right kidney. *Mild left renal hydronephrosis uncertain etiology. If patient is symptomatic on the left side would recommend correlation with follow-up CT scan without contrast.. Abdomen/Pelvis CT 12/04/21 13:01 IMPRESSION: A 0.4 cm calculus in the left mid to distal ureter with mild left hydroureter. Assessment for left hydronephrosis is limited given the presence of peripelvic cysts. A few additional bilateral nonobstructing renal calculi, as described above. Right renal peripelvic cysts are redemonstrated. Bilateral cortical renal cysts as detailed above are not significantly changed compared to last CT. No further imaging followup of these finding is recommended. Small appendicolith is noted in the tip of the appendix. No CT evidence of acute appendicitis. Hyperdense appearance of the bladder contents which may represent significant volume sludge. Pericholecystic fat stranding. Recommend clinical correlation for possibility of acute cholecystitis. As clinically deemed necessary, consider correlation with ultrasound. Fleischner guidelines were followed. Abdomen Ultrasound 12/04/21 15:50 IMPRESSION: Abnormal appearance of the gallbladder , seem to be markedly thickened wall with hypoechoic vascular structure within, this is concerning for possible gallbladder neoplasm versus chronic inflammation. Surgical evaluation is warranted. May consider further investigation with contrast-enhanced cross-sectional study preferably MRI. (Referring physician staff is being called, to be alerted of the above findings and recommendations.) JS <CHRISTINA Durham - Last Filed: 12/04/21 18:53> Assessment and Plan (1) Gallbladder disease: Status: Acute <CHRISTINA Durham - Last Filed: 12/04/21 18:53> (2) Kidney stones: Status: Acute <CHRISTINA Durham - Last Filed: 12/04/21 18:53> 56-year-old female with history of nephrolithiasis following with Urology outpatient admitted for gallbladder disease. 1-Gallbladder disease etiology unclear -Abd ct showing abnormal gallbladder. Follow up u/s reflects abnormal appearance of the gallbladder with markedly thickened gallbladder wall with sludge with hypoechoic avascular structure within concerning for possible gallbladder neoplasm versus chronic inflammation. -Sludge and pericholecystic fat stranding but no other clinical findings to support acute cholecystitis at this time until HIDA scan. Hold on abx at this time -HIDA scan ordered -Gastroenterology and general surgery consulted -NPO after midnight 2-Left 4mm ureteral stone with mild hydroureter -Given size should pass spontaneously, but will give flomax given the mild hydroureter -No evidence of infection or hydronephrosis -IVF -Pain management torodol and morphine with pain scale -Ondansetron prn nausea 3-Anxiety -Pt quite anxious about possibility of malignancy. PRN lorazepam ordered DVT prophylaxis- lovenox Full code Pt requires inpt stay due to possible acute cholecystitis <CHRISTINA Durham - Last Filed: 12/04/21 18:53> 56-year-old female with history of nephrolithiasis following with Urology outpatient admitted for gallbladder disease. 1-Gallbladder disease etiology unclear -Abd ct showing abnormal gallbladder. Follow up u/s reflects abnormal appearance of the gallbladder with markedly thickened gallbladder wall with sludge with hypoechoic avascular structure within concerning for possible gallbladder neoplasm versus chronic inflammation. -Sludge and pericholecystic fat stranding but no other clinical findings to support acute cholecystitis at this time until HIDA scan. Hold on abx at this time -HIDA scan ordered -Gastroenterology and general surgery consulted -NPO after midnight 2-Left 4mm ureteral stone with mild hydroureter -Given size should pass spontaneously, but will give flomax given the mild hydroureter -No evidence of infection or hydronephrosis -IVF -Pain management torodol and morphine with pain scale -Ondansetron prn nausea 3-Anxiety -Pt quite anxious about possibility of malignancy. PRN lorazepam ordered DVT prophylaxis- lovenox Full code Pt requires inpt stay due to possible acute cholecystitis Addendum to history and physical by mid-level provider, CHRISTINA Collado I interviewed and examined the patient. I discussed their presentation and management with the mid-level provider. I reviewed the history and physical and agree with the documentation, with the following additions and corrections: 56yo F with hx nephrolithiasis presenting with L flank pain that has resolved but found to have abnormal gallbladder concerning for chronic cholecystitis vs gallbladder neoplasm. Also found to have Covid-19 without respiratory symptoms or hypoxia. Plan admit to M/S, consult GI + Gen Surg, obtain HIDA and abd MRI. Remdesivir for Covid-19 given risk factor of obesity. <Vivian Ibarra MD - Last Filed: 12/05/21 13:39> Quality Stroke Does the patient have a stroke diagnosis?: No <CHRISTINA Durham - Last Filed: 12/04/21 18:53> VTE Prior VTE?: No <CHRISTINA Durham - Last Filed: 12/04/21 18:53> VTE Risk Level:: Medical - moderate - high <CHRISTINA Durham - Last Filed: 12/04/21 18:53> VTE Device Contraindication: Treatment Not Indicated <CHRISTINA Durham - Last Filed: 12/04/21 18:53> VTE Drug Contraindication: N/A - Med Ordered <CHRISTINA Durham - Last Filed: 12/04/21 18:53>
[2021-12-04 19:00] LABS: COVID-19 Test Positive (Negative)
[2021-12-04] MEDS: Lactated Ringers 1,000 ML 100 ML IVCONT (19:34)
[2021-12-04] MEDS: Tamsulosin HCL 0.4 MG CAPSULE PO (20:02)
[2021-12-04] MEDS: Enoxaparin Sodium 40 MG/0.4 ML SYRINGE SUBCUT (20:02)
[2021-12-05 00:05] VITALS: BP 121/62; PULSE 72; RESP 18; TEMP 36.7; O2SAT 95
--- NOTE | 2021-12-05 05:32 | PC.NURSE ---
patient refuses IVF despite education
--- NOTE | 2021-12-05 07:12 | PC.NURSE ---
Assumed care for this pt at this time
[2021-12-05] MEDS: Tamsulosin HCL 0.4 MG CAPSULE PO (07:59)
[2021-12-05] MEDS: 0.9 % Sodium Chloride Flush 3 ML SYRINGE IVFLUSH (07:59)
[2021-12-05 08:47] VITALS: BP 127/67; PULSE 84; RESP 18; TEMP 36.1; O2SAT 93
--- NOTE | 2021-12-05 10:29 | PM.CNGS ---
History of Present Illness Consult details Consult date: 12/05/21 Reason for consult: other (Abnormal CT and abdominal ultrasound) Narrative: The patient is a 56-year-old woman from [place] who denies any family history of GI malignancy. She denies any indigestion, epigastric or right upper quadrant symptoms of postprandial pain but was seen in the emergency department yesterday because of left flank pain. She was noted to have a kidney stone and also noted to have abnormalities to her gallbladder fossa concerning for malignancy. I was asked to help evaluate and direct her care given the rarity of gallbladder disease. As noted, the patient denies any symptoms to suggest chronic calculous cholecystitis. She denies any family history of gallbladder disease. She denies any family history of GI malignancy, however EMR shows esophageal cancer in her father and a brother with stomach cancer. She denies any unexplained weight loss. She is COVID positive and noted that she was not feeling well a few days ago then started to developed sharping left flank pain and presented to the emergency room evaluation. Review of Systems Review of Systems: Yes all other systems are reviewed and are negative Constitutional: Constitutional: Reports as per [facility] Past Medical History Medical History Kidney stones Family History Family History Paternal Uncle Lung cancer Father Esophageal cancer Brother Stomach cancer Social History Social History Alcohol intake: former Advance Directives: No Advance Directives Information Provided: Yes Meds Allergies Allergy/AdvReac Type Severity Reaction Status Date / Time No Known Allergies Allergy Verified 10/22/21 13:41 Active Medications: Current Medications Enoxaparin Sodium (Enoxaparin Sodium 40 Mg/0.4 Ml Syringe) 40 mg SUBCUT Q24H [facility] Last Admin: 12/04/21 20:02 Dose: 40 mg Lactated Ringer's (Lr) 1,000 mls @ 100 mls/hr IVCONT .Q10H [facility] Last Infusion: 12/05/21 05:39 Dose: Infused Ketorolac Tromethamine (Ketorolac Tromethamine 30 Mg/Ml Vial) 30 mg IVPUSH Q6H PRN PRN Reason: Pain, Moderate (Pain Scale 4-6 Lorazepam (Lorazepam 0.5 Mg Tablet) 0.5 mg PO Q6H PRN PRN Reason: Anxiety Morphine Sulfate (Morphine Sulfate 2 Mg/Ml Cartridge) 1 mg IVPUSH Q4H PRN; Protocol PRN Reason: Pain, Severe (Pain Scale 7-10) Ondansetron HCl (Ondansetron Odt 4 Mg Tab.Rapdis) 4 mg TRANSLINGU Q6H PRN PRN Reason: Nausea and Vomiting Sodium Chloride (0.9 % Sodium Chloride Flush 3 Ml Syringe) 3 ml IVFLUSH QSHIFT [facility] Last Admin: 12/05/21 07:59 Dose: 3 ml Tamsulosin HCl (Tamsulosin Hcl 0.4 Mg Capsule) 0.4 mg PO DAILY [facility] Last Admin: 12/05/21 07:59 Dose: 0.4 mg Home Medications Medication Instructions Recorded Confirmed Last Taken Type ibuprofen 600 mg tablet 600 mg PO BID PRN Pain, Moderate 12/04/21 12/04/21 Unknown History Physical Exam Vital Signs: Vital Signs: Last Vital Signs Temp 97 F 12/05/21 08:47 Pulse 84 12/05/21 08:47 Resp 18 12/05/21 08:47 BP 127/67 12/05/21 08:47 Pulse Ox 93 12/05/21 08:47 O2 Del Method 12/05/21 08:47 BMI result Body Mass Index 31.6 The patient is non-toxic & in good spirits NC/AT, PERRLA, EOMI Mood, affect & judgment all appear appropriate Sclera anicteric conjunctiva pink and moist Neck is supple with no masses, adenopathy or bruits Heart is regular, normal S1-S2 no rubs or murmurs Lungs are clear and equal anteriorly with no audible wheezing, rubs or dullness to percussion Abdomen is overweight with no demonstrable hernias. No HSM, rebound, rigidity, guarding, masses or bruits are present. Rectal exam is deferred Skin has good turgor and is free of rashes Extremities free of cyanosis clubbing edema Results Labs Result diagrams: 12/04/21 10:12/04/21 10:28 Labs: Abnormal lab results 12/04/21 12/04/21 12/04/21 Range/Units : 10: 12:11 Immature Gran % (Auto) 0.6 H (0.0-0.4) % Abs Immat Gran (auto) 0.05 H (0.00-0.03) X10*3/uL Random Glucose 118 H (60-115) mg/dL Ur Leukocyte Esterase Trace H (Negative) COVID-19 ([facility]) (Negative) 12/04/21 Range/Units 18:48 Immature Gran % (Auto) (0.0-0.4) % Abs Immat Gran (auto) (0.00-0.03) X10*3/uL Random Glucose (60-115) mg/dL Ur Leukocyte Esterase (Negative) COVID-19 ([facility]) Positive A (Negative) Short CBC 12/04/21 Range/Units 10:28 WBC 8.5 (4.8-10.8) X10*3/uL Hgb 13.8 (12.0-16.0) g/dl Hct 41.0 (37.0-47.0) % Plt Count 309 (160-400) X10*3/uL BMP 12/04/21 10:28 Sodium 142 Potassium 3.9 Chloride 107 Carbon Dioxide 22 BUN 15 Creatinine 0.84 Calcium 9.1 Liver Function 12/04/21 Range/Units 10:28 Total Bilirubin 0.6 (0.0-1.0) mg/dL Direct Bilirubin 0.2 (0.0-0.5) mg/dL AST 26 D (5-31) U/L ALT 17 (0-31) U/L Alkaline Phosphatase 78 (39-117) U/L Albumin 4.3 (3.5-5.0) g/dL Urine 12/04/21 Range/Units 12:11 Urine Color Yellow Urine Appearance Clear Urine pH 7.0 (5.0-9.0) Ur Specific Rochert 1.010 (1.005-1.025) Urine Protein Negative (Neg-Trace) mg/dL Urine Glucose (UA) Negative (Negative) mg/dL All other labs normal. Imaging Abdomen CT scan report/results: report reviewed and image reviewed CT scan - pelvis: report reviewed and image reviewed Abdominal ultrasound report/results: report reviewed and image reviewed Additional studies: HIDA scan and MRCP are pending Assessment and Plan (1) Abnormal CT of the abdomen: Status: Acute (2) Kidney stones: Status: Acute (3) Family history of GI tract cancer: Status: Acute Plan The patient very clearly is not having symptoms of chronic calculous cholecystitis or biliary colic. The question remains whether not the CT and ultrasound are demonstrating an early gallbladder malignancy or an anomaly that could be related to artifact or COVID. CEA is in normal parameters; CA 19 9 is pending From a surgical perspective, the patient can have a regular diet after her HIDA and MRI are performed. If there are questions regarding malignancy, I am happy to speak with hepatobiliary surgery or transplant surgery at a larger institution/tertiary care center given the complexity of resection. Since the patient receive narcotics yesterday, it is possible her HIDA scan may be abnormal and show non or delayed visualization. This can also be secondary to any obstruction of the cystic duct including malignancy. Await studies. Procedures Date of Service Date of Service: 12/05/21
[2021-12-05 12:20] VITALS: BP 135/87; PULSE 85; RESP 20; TEMP 36.3; O2SAT 96
--- NOTE | 2021-12-05 14:01 | HO.PM.IMPN ---
Subjective Subjective Date of Service: 12/05/21 Interval History: hungry no LUQ pain no RUQ pain either no N/V no fever no cough Review of Systems Review of Systems: Yes all other systems are reviewed and are negative Physical Exam Vital Signs: Vital Signs: Last Vital Signs Temp 97.3 F 12/05/21 12:20 Pulse 85 12/05/21 12:20 Resp 20 12/05/21 12:20 BP 135/87 12/05/21 12:20 Pulse Ox 96 12/05/21 12:20 O2 Del Method 12/05/21 12:20 BMI result Body Mass Index 31.6 Gen: in no acute distress HEENT: sclera anicteric, moist mucus membranes Neck: supple Lungs: clear to auscultation bilaterally Heart: regular rate and rhythm, no murmurs Abd: soft, non-tender, non-distended, obese Ext: no edema Skin: warm/well-perfused Neuro: alert and oriented x3, no focal findings Psych: appropriate affect Objective Data Active Medications Enoxaparin Sodium (Enoxaparin Sodium 40 Mg/0.4 Ml Syringe) 40 mg SUBCUT Q24H [facility] Last Admin: 12/04/21 20:02 Dose: 40 mg Documented By: ZAKIYA Lactated Ringer's (Lr) 1,000 mls @ 100 mls/hr IVCONT .Q10H [facility] Last Infusion: 12/05/21 05:39 Dose: 100 mls/hr Documented By: JD Ketorolac Tromethamine (Ketorolac Tromethamine 30 Mg/Ml Vial) 30 mg IVPUSH Q6H PRN PRN Reason: Pain, Moderate (Pain Scale 4-6 Lorazepam (Lorazepam 0.5 Mg Tablet) 0.5 mg PO Q6H PRN PRN Reason: Anxiety Morphine Sulfate (Morphine Sulfate 2 Mg/Ml Cartridge) 1 mg IVPUSH Q4H PRN; Protocol PRN Reason: Pain, Severe (Pain Scale 7-10) Ondansetron HCl (Ondansetron Odt 4 Mg Tab.Rapdis) 4 mg TRANSLINGU Q6H PRN PRN Reason: Nausea and Vomiting Sodium Chloride (0.9 % Sodium Chloride Flush 3 Ml Syringe) 3 ml IVFLUSH QSHIFT [facility] Last Admin: 12/05/21 07:59 Dose: 3 ml Documented By: WINSTON Tamsulosin HCl (Tamsulosin Hcl 0.4 Mg Capsule) 0.4 mg PO DAILY [facility] Last Admin: 12/05/21 07:59 Dose: 0.4 mg Documented By: WINSTON Labs CBC & Chem 7: 12/04/21 10:28 12/04/21 10:28 Labs: Laboratory Results - last 24 hr 12/04/21 12/04/21 18:48 18:48 ITS Impressions Renal Ultrasound 12/04/21 11:12 IMPRESSION: *Numerous bilateral renal cysts compatible with patient history of polycystic kidney disease. *Nonobstructing stones right kidney. *Mild left renal hydronephrosis uncertain etiology. If patient is symptomatic on the left side would recommend correlation with follow-up CT scan without contrast.. Abdomen/Pelvis CT 12/04/21 13:01 IMPRESSION: A 0.4 cm calculus in the left mid to distal ureter with mild left hydroureter. Assessment for left hydronephrosis is limited given the presence of peripelvic cysts. A few additional bilateral nonobstructing renal calculi, as described above. Right renal peripelvic cysts are redemonstrated. Bilateral cortical renal cysts as detailed above are not significantly changed compared to last CT. No further imaging followup of these finding is recommended. Small appendicolith is noted in the tip of the appendix. No CT evidence of acute appendicitis. Hyperdense appearance of the bladder contents which may represent significant volume sludge. Pericholecystic fat stranding. Recommend clinical correlation for possibility of acute cholecystitis. As clinically deemed necessary, consider correlation with ultrasound. Fleischner guidelines were followed. Abdomen Ultrasound 12/04/21 15:50 IMPRESSION: Abnormal appearance of the gallbladder , seem to be markedly thickened wall with hypoechoic vascular structure within, this is concerning for possible gallbladder neoplasm versus chronic inflammation. Surgical evaluation is warranted. May consider further investigation with contrast-enhanced cross-sectional study preferably MRI. (Referring physician staff is being called, to be alerted of the above findings and recommendations.) JS Carcinoembryonic Ag 2.40 COVID-19 ([facility]) Positive A COVID-19 Clin Com See Note Assessment and Plan (1) Abnormal CT of the abdomen: Status: Acute Plan d#2 56yo F with polycistic kidney dz, hx nephrolithiasis, presenting with L flank pain that has since resolved but then had CT + US findings concerning for possible gallbladder CA vs chronic cholecystitis # gallbladder thickening - GI + Gen Surg consults, MRI/MRCP and HIDA scans pending # nephrolithiasis with mild hydroureter - hydration, tamsulosin, may pass on its own # VTE ppx: LMWH In my clinical judgment, the patient requires continued hospitalization for the following reasons: cholecystitis Quality Stroke Does the patient have a stroke diagnosis?: No VTE Prior VTE?: No VTE Risk Level:: Medical - moderate - high VTE Device Contraindication: Treatment Not Indicated VTE Drug Contraindication: N/A - Med Ordered
[2021-12-05 14:06] VITALS: BP 139/71; PULSE 91; O2SAT 96
--- NOTE | 2021-12-05 17:31 | PM.EVENT ---
Event Note Date of Service: 12/05/21 Event Note: GI Consult-Full note dictated. History via patient and EMR. Imp: 56 yo female presenting for evaluation of left-sided kidney kidney stone disease and incidentally found to have gallbladder disease. Her MRI and HIDA scan today are suggestive of chronic cholecystitis, but without any sign of biliary disease nor mass. Her LFT's have been normal as well. She is presently asymptomatic after eating her dinner. She appears quite comfortable. Her abdominal exam is presently benign. She is anicteric and afebrile. Rec: I would recommend eventual cholecystectomy, but will defer the timing of that to the surgical service. I don't think an ERCP is presently required. Given the CT findings I would recommend Urology consultation before discharge as well. D/W patient and she is comfortable with this plan. Thanks.
[2021-12-05 19:44] VITALS: BP 149/65; PULSE 93; RESP 14; TEMP 36.6; O2SAT 96
[2021-12-05] MEDS: Enoxaparin Sodium 40 MG/0.4 ML SYRINGE SUBCUT (20:24)
[2021-12-06] VITALS: BP 129/74; PULSE 87; RESP 16; TEMP 36.6; O2SAT 95
--- NOTE | 2021-12-06 01:55 | CONS_ITS ---
DATE OF SERVICE: 12/05/2021 REASON FOR CONSULTATION: Abnormal imaging of gallbladder. HISTORY OF PRESENT ILLNESS: The patient is a 56-year-old female with known left-sided kidney stone disease, who presented to the ER for evaluation of left-sided flank pain. Her imaging studies did reveal a left ureteral kidney stone with some hydronephrosis, but also described gallbladder abnormalities prompting her admission. The patient does describe typical kidney stone pain along the left flank area, but has also had a couple of episodes of generalized abdominal pain over the past week or so. This was not associated with any signs of jaundice nor fever. She has otherwise been eating comfortably and denies any chronic heartburn or dysphagia. She reports that her bowel movements have been somewhat constipated, but there has been no hematochezia nor melena. She does not have any pre-existing known history of gallbladder disease in herself nor family members. Since admission here, she has been able to eat comfortably and denies any abdominal pain. She has been afebrile. Again, there has been no evidence of jaundice. MEDICATIONS: Medications at home, none. Medications here in the hospital include acetaminophen, Lovenox, Toradol p.r.n., Ativan p.r.n., morphine p.r.n., Zofran p.r.n., and Flomax. PAST MEDICAL HISTORY: Kidney stones. She is followed by Dr. Avila for that and describes previous ureteral stent placement. She denies a history of heart disease, diabetes, stroke, lung disease, nor kidney disease otherwise. She denies any surgeries. 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 She does not smoke nor use any significant amounts of alcohol. FAMILY HISTORY: Noncontributory. PHYSICAL EXAMINATION: GENERAL: The patient is a pleasant, alert, comfortable-appearing female. She just finished dinner and is not having any pain. She has been afebrile. Skin is warm dry. Anicteric sclerae. Moist mucous membranes. NECK: Supple without lymphadenopathy. CARDIAC: Normal S1, S2. ABDOMEN: Soft, nondistended. Normal bowel sounds. Nontender without palpable mass. EXTREMITIES: Without edema. LABORATORY DATA: White blood cell count 8.5, hemoglobin 13.8, platelets 309,000. Normal electrolytes. BUN 15, creatinine 0.84. LFTs are normal. CEA level is 2.4. Her initial abdominal CT scan from yesterday described a left ureteral stone with some hydronephrosis. The CT scan also describes a hyperdense appearance of the gallbladder contents suggestive of sludge, although the radiologist raised a suspicion of possible neoplasm. There was no evidence of any biliary disease. Her abdominal ultrasound also raised a suspicion of possible gallbladder neoplasm or chronic inflammation. She had a MRI of the abdomen today that describes findings consistent with a large amount of sludge in the gallbladder with some mild gallbladder wall enhancement and some fat stranding around the gallbladder consistent with cholecystitis. There was no evidence of any biliary disease nor gallbladder mass. Finally, a HIDA scan done today describes nonvisualization of the gallbladder after 4 hours consistent with cystic duct obstruction, but there is normal liver uptake and a patent common bile duct with good drainage of isotope into the duodenum. IMPRESSION: Given the patient's clinical history and imaging studies, this appears to be related to some chronic gallbladder disease as opposed to any type of gallbladder malignancy. She does not appear to have any biliary disease based on laboratories nor imaging studies. At this point I would recommend eventual cholecystectomy, but will defer the timing of that to the surgical service. I do not think an ERCP is required preoperatively. I would also recommend a urology consultation before discharge given the presence of the left ureteral stone and hydronephrosis. Please consult me again if I could be of any further assistance during her hospitalization. This has all been discussed with the patient in detail and she is comfortable with that plan. Thank you for the consultation. MD SUGAR Peacock/NATI / [id number] [email or web address]
[2021-12-06 04:45] VITALS: BP 105/78; PULSE 74; RESP 20; TEMP 36.2; O2SAT 96
[2021-12-06 06:14] LABS: Hematocrit 35.9 % (37.0-47.0); Hemoglobin 12.1 g/dl (12.0-16.0); Mean Corpuscular HGB Conc 33.7 g/dl (31.0-35.0); Mean Corpuscular Hemoglobin 28.9 pg (27.0-33.0); Mean Corpuscular Volume 85.9 fL (80.0-98.0); Mean Platelet Volume 9.7 fL (9.4-12.3); Platelet Count 309 X10*3/uL (160-400); Red Blood Count 4.18 X10*6/uL (4.20-5.50); Red Cell Distribution Width 13.4 % (11.0-16.0); White Blood Count 6.9 X10*3/uL (4.8-10.8)
[2021-12-06 06:20] LABS: INTERNATIONAL NORM RATIO 1.1 (0.9-1.1); Prothrombin Time 12.1 SEC (10.0-13.1)
[2021-12-06 06:36] LABS: Alanine Aminotransferase 14 U/L (0-31); Albumin Level 3.8 g/dL (3.5-5.0); Alkaline Phosphatase 67 U/L (39-117); Anion Gap 14 (12-20); Aspartate Amino Transferase 14 U/L (5-31); Bilirubin Total 0.4 mg/dL (0.0-1.0); Blood Urea Nitrogen 14 mg/dL (9-16); C Reactive Protein 1.66 mg/dL (< or = 0.50); Carbon Dioxide 24 mmol/L (22-29); Chloride 108 mmol/L (96-108); Creatinine Clr Calc Pharmacy 82.2; Estimated Glomerular Filt Rate > 60; Glucose Random 90 mg/dL (60-115); Lactate Dehydrogenase 149 U/L (122-220); Potassium 3.7 mmol/L (3.3-5.1); Sodium 142 mmol/L (135-145); Total Protein 6.3 g/dL (6.5-8.0)
[2021-12-06 06:53] LABS: Ferritin 167 ng/mL (10-250)
--- NOTE | 2021-12-06 10:13 | P.DS_ITS ---
DS: Providers Provider Date of Service: 12/06/21 Date of admission: 12/04/21 18:16 Date of discharge: 12/06/21 Primary care physician: Zunilda Physician Consults: 12/04/21 17:07 Consult to General Surgery Stat Consulting Provider: Mark Ponce Reason for consultation: Gallbladder disease concern Has provider been notified: Yes 12/04/21 18:40 Consult to Gastroenterology Routine Consulting Provider: Steve Stout Reason for consultation: abnomal gallbladder Consult to General Surgery Routine Consulting Provider: Mark Ponce Reason for consultation: abnomal gallbladder DS: Diagnosis Discharge Diagnosis (1) Abnormal CT of the abdomen: Status: Acute (2) Gallbladder disease: Status: Acute (3) Gallbladder sludge: Status: Acute (4) Gallbladder polyp: Status: Acute (5) Kidney stones: Status: Acute (6) COVID-19: Status: Acute DS: Summary Hospital Course Hospital Course: from admission H+P by CHRISTINA Collado, 12/04/21: 56-year-old female with history of nephrolithiasis following with Urology outpatient presented to the ED this morning for evaluation of left flank pain ongoing for 3 days.? Initially had been responsive to ibuprofen but did continue to worsen with the onset of nausea and vomiting on arrival to the hospital today as well as headache.? She denies any radiation of the pain.? Denies any fevers, chills, dysuria, hematuria, increased urinary frequency urgency, abdominal pain, diarrhea, constipation, blood in stool.? Hematology studies were unremarkable, no leukocytosis.? Renal function and electrolyte levels are normal.? Urinalysis significant only for trace leukocytes, negative nitrates, negative bacteria.? CT of the abdomen/pelvis showed 4 mm calculus in the left mid to distal ureter with mild left hydroureter, no hydronephrosis.? Additional nonobstructing renal calculi also seen.? There is a small appendicolith without appendicitis.? Also abnormal appearance of the gallbladder contents possibly representing signi ficant volume sludge as well as pericholecystic fat stranding.? Follow-up ultrasound right upper quadrant again reflects abnormal appearance of the gallbladder with markedly thickened gallbladder wall with sludge with hypoechoic avascular structure within concerning for possible gallbladder neoplasm versus chronic inflammation.? Patient is afebrile and vital signs are otherwise stable. Case discussed with general surgery recommending admission for further investigation of abnormal gallbladder. Denies smoking hx, etoh use, or illicit drug use. This 56yo F with polycistic kidney disease and history of nephrolithiasis presented with L flank pain that has resolved in the ED, but then had CT findings concerning for acute cholecystitis. She was admitted to the hospitalist service. An US of the gallbladder showed thickened gallbladder wall with sludge with hypoechoic avascular structure concerning for neoplasm versus chronic infammation. A HIDA scan demonstrated nonfilling of the cystic duct; however, she had absolutely no RUQ pain or tenderness and tolerated a regular diet without any nausea, vomiting, or pain. An MRI showed that a large amount of gallbladder sludge with mild wall enhancement and pericholecystic fat stranding. There was a nonspecific 0.7 cm non-enhacing focus abutting the wall of the gallbladder fundus that could be adherent calculus versus polyp. Surgery and GI were consulted. Malignancy was deemed extremely unlikely, as was any acute cholecystitis in the complete absence of biliary colic symptoms. She was discharged home with a general surgery referral for outpatient surveillance of the gallbaldder with US. As for the kidney stone, she had no symptoms of renal colic. She was placed on tamsulosin, instructed to drink plenty of fluids, and follow up with Urology as an outpatient. Time Spent with Patient Time attestation: Total time spent providing and/or coordinating discharge services: Discharge coordination time: Greater than 30 minutes Quality: Safe Use of Opioids Does Pt have an Active Cancer Diagnosis on the Problem List?: No Quality: Stroke Does the patient have a stroke diagnosis?: No Physical Exam Vital Signs: Vital Signs: Last Vital Signs Temp 97.2 F 12/06/21 04:45 Pulse 74 12/06/21 04:45 Resp 20 12/06/21 04:45 BP 105/78 12/06/21 04:45 Pulse Ox 96 12/06/21 04:45 O2 Del Method 12/06/21 04:45 BMI result Body Mass Index 31.6 Gen: in no acute distress HEENT: sclera anicteric, moist mucus membranes Neck: supple Lungs: clear to auscultation bilaterally Heart: regular rate and rhythm, no murmurs Abd: soft, non-tender, non-distended, obese; no Chung sign : no flank tenderness, no CVA tenderness Ext: no edema Skin: warm/well-perfused Neuro: alert and oriented x3, no focal findings Psych: appropriate affect DS: Data Data Completed and Pending Completed studies during hospitalization [Text1]: Laboratory Results WBC 6.9 X10*3/uL (4.8-10.8) 12/06/21 06:02 RBC 4.18 X10*6/uL (4.20-5.50) L 12/06/21 06:02 Hgb 12.1 g/dl (12.0-16.0) 12/06/21 06:02 Hct 35.9 % (37.0-47.0) L 12/06/21 06:02 MCV 85.9 fL (80.0-98.0) 12/06/21 06:02 MCH 28.9 pg (27.0-33.0) 12/06/21 06:02 MCHC 33.7 g/dl (31.0-35.0) 12/06/21 06:02 RDW 13.4 % (11.0-16.0) 12/06/21 06:02 Plt Count 309 X10*3/uL (160-400) 12/06/21 06:02 MPV 9.7 fL (9.4-12.3) 12/06/21 06:02 Immature Gran % (Auto) 0.6 % (0.0-0.4) H 12/04/21 10:28 Neut % (Auto) 68.6 % (45-73) 12/04/21 10:28 Lymph % (Auto) 21.4 % (20-40) 12/04/21 10:28 [place] % (Auto) 7.6 % (2-11) 12/04/21 10:28 Eos % (Auto) 1.4 % (0-4) 12/04/21 10:28 Baso % (Auto) 0.4 % (0-2) 12/04/21 10:28 Lymph # (Auto) 1.8 X10*3/uL (1.2-4.9) 12/04/21 10:28 [place] # (Auto) 0.7 X10*3/uL (0.1-1.2) 12/04/21 10:28 Eos # (Auto) 0.1 X10*3/uL (0.0-0.4) 12/04/21 10:28 Baso # (Auto) 0.0 X10*3/uL (0.0-0.2) 12/04/21 10:28 Abs Immat Gran (auto) 0.05 X10*3/uL (0.00-0.03) H 12/04/21 10:28 Absolute Neuts (auto) 5.9 x10*3/uL (2.0-8.3) 12/04/21 10:28 Absolute Nucleated RBC 0.000 X10*3/uL (0.0-0.012) 12/06/21 06:02 Nucleated RBC % (auto) 0.0 /100WBC (0.0-0.2) 12/06/21 06:02 PT 12.1 SEC (10.0-13.1) 12/06/21 06:02 INR 1.1 (0.9-1.1) 12/06/21 06:02 Sodium 142 mmol/L (135-145) 12/06/21 06:02 Potassium 3.7 mmol/L (3.3-5.1) 12/06/21 06:02 Chloride 108 mmol/L (96-108) 12/06/21 06:02 Carbon Dioxide 24 mmol/L (22-29) 12/06/21 06:02 Anion Gap 14 (12-20) 12/06/21 06:02 BUN 14 mg/dL (9-16) 12/06/21 06:02 Creatinine 0.76 mg/dL (0.5-1.4) 12/06/21 06:02 Estim Creat Clear Calc 82.2 12/06/21 06:02 Estimated GFR > 60 12/06/21 06:02 Random Glucose 90 mg/dL (60-115) 12/06/21 06:02 Calcium 9.0 mg/dL (8.4-10.2) 12/06/21 06:02 Ferritin 167 ng/mL (10-250) 12/06/21 06:02 Total Bilirubin 0.4 mg/dL (0.0-1.0) 12/06/21 06:02 Direct Bilirubin 0.2 mg/dL (0.0-0.5) 12/04/21 10:28 AST 14 U/L (5-31) D 12/06/21 06:02 ALT 14 U/L (0-31) 12/06/21 06:02 Alkaline Phosphatase 67 U/L (39-117) 12/06/21 06:02 Lactate Dehydrogenase 149 U/L (122-220) 12/06/21 06:02 C-Reactive Protein 1.66 mg/dL (< or = 0.50) H 12/06/21 06:02 Total Protein 6.3 g/dL (6.5-8.0) L 12/06/21 06:02 Albumin 3.8 g/dL (3.5-5.0) 12/06/21 06:02 Lipase 19 U/L (8-78) 12/04/21 10:28 Carcinoembryonic Ag 2.40 ng/mL 12/04/21 18:48 Procalcitonin 0.10 ng/mL 12/06/21 06:02 Urine Color Yellow 12/04/21 12:11 Urine Appearance Clear 12/04/21 12:11 Urine pH 7.0 (5.0-9.0) 12/04/21 12:11 Ur Specific [place] 1.010 (1.005-1.025) 12/04/21 12:11 Urine Protein Negative mg/dL (Neg-Trace) 12/04/21 12:11 Urine Glucose (UA) Negative mg/dL (Negative) 12/04/21 12:11 Urine Ketones Trace mg/dL (Negative) 12/04/21 12:11 Urine Blood Negative (Negative) 12/04/21 12:11 Urine Nitrite Negative (Negative) 12/04/21 12:11 Ur Leukocyte Esterase Trace (Negative) H 12/04/21 12:11 Urine RBC 0-2 /HPF (0-2) 12/04/21 12:11 Urine WBC 0-5 /HPF (0-5) 12/04/21 12:11 Ur Squamous Epith Cells 3-5 /HPF (0-2) 12/04/21 12:11 Urine Bacteria Trace (None Seen) 12/04/21 12:11 Hyaline Casts 0-2 /LPF (0-2) 12/04/21 12:11 COVID-19 ([place]) Positive (Negative) A 12/04/21 18:48 COVID-19 Clin Com See Note 12/04/21 18:48 Impressions Renal Ultrasound 12/04/21 11:12 IMPRESSION: *Numerous bilateral renal cysts compatible with patient history of polycystic kidney disease. *Nonobstructing stones right kidney. *Mild left renal hydronephrosis uncertain etiology. If patient is symptomatic on the left side would recommend correlation with follow-up CT scan without contrast.. Abdomen/Pelvis CT 12/04/21 13:01 IMPRESSION: A 0.4 cm calculus in the left mid to distal ureter with mild left hydroureter. Assessment for left hydronephrosis is limited given the presence of peripelvic cysts. A few additional bilateral nonobstructing renal calculi, as described above. Right renal peripelvic cysts are redemonstrated. Bilateral cortical renal cysts as detailed above are not significantly changed compared to last CT. No further imaging followup of these finding is recommended. Small appendicolith is noted in the tip of the appendix. No CT evidence of acute appendicitis. Hyperdense appearance of the bladder contents which may represent significant volume sludge. Pericholecystic fat stranding. Recommend clinical correlation for possibility of acute cholecystitis. As clinically deemed necessary, consider correlation with ultrasound. Fleischner guidelines were followed. Abdomen Ultrasound 12/04/21 15:50 IMPRESSION: Abnormal appearance of the gallbladder , seem to be markedly thickened wall with hypoechoic vascular structure within, this is concerning for possible gallbladder neoplasm versus chronic inflammation. Surgical evaluation is warranted. May consider further investigation with contrast-enhanced cross-sectional study preferably MRI. (Referring physician staff is being called, to be alerted of the above findings and recommendations.) JS Abdomen MRI 12/05/21 13:01 IMPRESSION: The hyperdense appearance of the gallbladder noted on the CT scan of 12/04/2021 appears to represent a large amount of sludge in the gallbladder. Mild gallbladder wall enhancement and pericholecystic fat stranding. In the appropriate clinical settings, findings may represent acute cholecystitis. Recommend clinical correlation. Please refer to the report of hepatobiliary scan of 12/05/2021 to determine further management. A 0.7 cm nonenhancing focus is noted abutting the wall of the gallbladder fundus is non specific, and may represent adherent calculus. Multiple bilateral peripelvic renal cysts and simple cysts as well as left renal upper pole calyceal diverticulum. Very mild left hydronephrosis. Hepatobiliary Scan Nuclear Medicine 12/05/21 13:50 IMPRESSION: Nonvisualization of gallbladder up to 4 hours consistent with cystic duct obstruction. Normal hepatic uptake. Patent CBD. Discharge Plan Discharge Anticipated Discharge Date/Time: 12/06/21 10:09 Patient Disposition: Home, Self-Care Discharge Diagnosis: gallbladder sludge, possible polyp kidney stone Covid-19 infection Referrals: Virgie Estrella MD [Physician] - 1 Week Jeremy Avila MD [Physician] - 2 Weeks Mark Ponce MD [Physician] - 1 Month Discharge Medications: New tamsulosin 0.4 mg Capsule 0.4 mg PO DAILY Qty: 30 0RF Continued ibuprofen 600 mg Tablet 600 mg PO BID PRN (Reason: Pain, Moderate) Discharge Orders: Discharge Order (Routine); Ordered 12/06/21 Ordered By: Vivian Ibarra Diet: Low fat, low cholesterol Activity on Discharge: As tolerated Stand Alone Forms: Patient Portal Discharge page Care Plan Goals: surveillance of gallbladder sludge/polyp prevention of kidney stones recovery from Covid-19 infection Health Concerns: gallbladder sludge, possible polyp kidney stone Covid-19 infection Plan of Treatment: follow up with [facility] General Surgery for periodic surveillance of gallbladder polyp. follow a low-fat diet to prevent gallstone formation. drink plenty of fluids and take tamsulosin 0.4 mg daily to encourage stone passing. follow up with [facility] Urology for follow-up. wear mask for 3 more days Please follow up with your primary care doctor within 1 week. Return to the hospital if you experience recurrent or worsening symptoms. Assessment: See Discharge Summary.
--- NOTE | 2021-12-06 10:51 | PM.EVENT ---
Event Note Date of Service: 12/06/21 Event Note: I did not see the patient today Her care was again reviewed with the hospitalist. Assuming discharged today, the patient can follow up with me regarding the a symptomatic gallbladder polyp that could be monitored by ultrasound. Again, there are no clinical symptoms to suggest CCC or biliary colic and observation of any gallbladder polyp with ultrasound would be endorsed.
--- NOTE | 2021-12-06 11:39 | MHC.CM.PN ---
pt home no skilled servceis ordered by
[2021-12-06] MEDS: Tamsulosin HCL 0.4 MG CAPSULE PO (13:18)
[2021-12-06 14:47] LABS: Carbohydrate Antigen 19-9 7 U/mL (<34)
== END 2021-12-06 15:00 | disposition home or self-care (01) ==
LOC: HO.ED 17:40 → HO.EDOVER 18:34
PROVIDERS: Surgery; Admitting Provider Physician Assistant; Emergency Provider Emergency Medicine; PCP Internal Medicine; Visit Provider Family Medicine
DX: K82.9 Disease of gallbladder, unspecified (principal); U07.1 COVID-19; Q61.3 Polycystic kidney, unspecified; F41.9 Anxiety disorder, unspecified; N13.2 Hydronephrosis with renal and ureteral calculous obstruction; Z80.0 Family history of malignant neoplasm of digestive organs
CPT/HCPCS: 36415; 74176; 74183; 76705; 76775; 78226; 80048; 80053; 80076; 81001; 82378; 82728; 83615; 83690; 84145; 85025; 85027; 85610; 86140; 86301; 87635; 99285; A9537; A9585; J1650; J1885; J2270; J2405

== ENCOUNTER → 2022-01-06 15:10 | Outpatient (BNVA) | payer OTHER, SELFPAY | PROVIDERS: PCP Internal Medicine; Visit Provider Obstetrics & Gynecology | DX: N90.89 Other specified noninflammatory disorders of vulva and perineum (principal) | CPT/HCPCS: 99202 ==

== ENCOUNTER 2022-01-15 19:35 | Inpatient (IN) | payer OTHER, SELFPAY ==
--- NOTE | ~2022-01-15 | US_ITS ---
EXAMINATION: US ABDOMEN LIMITED CLINICAL INFORMATION: Gallbladder pain. COMPARISON: Hepatobiliary scan, MRI abdomen and right upper quadrant abdominal ultrasound 12/05/2021 TECHNIQUE: Limited right upper quadrant abdominal ultrasound performed for assessment of the gallbladder. FINDINGS: Gallbladder is distended with echogenic material presumably sludge and contains at least one shadowing stone. Gallbladder wall thickening up to 1.2 cm in thickness with some mural hyperemia. No pericholecystic fluid. The patient was tender in the right upper quadrant during scanning over the gallbladder prior technologist report. Visualized common hepatic duct is nondilated measuring 0.4 cm. Normal directional flow demonstrated in the adjacent main portal vein. US/US abdomen limited IMPRESSION: 1. Abnormal gallbladder containing sludge and at least one shadowing probable stone. Gallbladder wall thickening and mural hyperemia. Findings are compatible with acute cholecystitis in the appropriate clinical setting. 2. No biliary ductal dilation.
[2022-01-15 19:40] VITALS: BP 138/90; PULSE 92; O2SAT 98
[2022-01-15 19:46] VITALS: BP 192/98; PULSE 98; RESP 18; TEMP 36.6; O2SAT 98; BMI 31.6
[2022-01-15 20:41] LABS: MANUAL DIFF FLAG NO
[2022-01-15 20:48] LABS: Basophils Percent Auto 0.2 % (0-2); Eosinophils Absolute Auto 0.1 X10*3/uL (0.0-0.4); Eosinophils Percent Auto 0.5 % (0-4); Hematocrit 42.6 % (37.0-47.0); Hemoglobin 13.5 g/dl (12.0-16.0); Imm Gran Abs Auto 0.04 X10*3/uL (0.00-0.03); Imm Gran Pct Auto 0.3 % (0.0-0.4); Lymphocytes Absolute Auto 2.1 X10*3/uL (1.2-4.9); Lymphocytes Percent Auto 16.8 % (20-40); Mean Corpuscular HGB Conc 31.7 g/dl (31.0-35.0); Mean Corpuscular Hemoglobin 28.9 pg (27.0-33.0); Mean Corpuscular Volume 91.2 fL (80.0-98.0); Mean Platelet Volume 10.7 fL (9.4-12.3); Monocytes Absolute Auto 0.8 X10*3/uL (0.1-1.2); Monocytes Percent Auto 6.6 % (2-11); Neutrophils Absolute Auto 9.3 x10*3/uL (2.0-8.3); Neutrophils Percent Auto 75.6 % (45-73); Platelet Count 285 X10*3/uL (160-400); Red Blood Count 4.67 X10*6/uL (4.20-5.50); Red Cell Distribution Width 13.3 % (11.0-16.0); White Blood Count 12.4 X10*3/uL (4.8-10.8)
[2022-01-15] MEDS: ondansetron HCL 4 MG/2 ML VIAL IVPUSH (21:06)
[2022-01-15 21:11] LABS: Alanine Aminotransferase 17 U/L (0-31); Albumin Level 4.7 g/dL (3.5-5.0); Alkaline Phosphatase 82 U/L (39-117); Anion Gap 17 (12-20); Aspartate Amino Transferase 19 U/L (5-31); Bilirubin Total 0.3 mg/dL (0.0-1.0); Blood Urea Nitrogen 22 mg/dL (9-16); Calcium 9.5 mg/dL (8.4-10.2); Carbon Dioxide 23 mmol/L (22-29); Chloride 108 mmol/L (96-108); Creatinine Clr Calc Pharmacy 71.9; Estimated Glomerular Filt Rate > 60; Glucose Random 110 mg/dL (60-115); Lipase 20 U/L (8-78); Potassium 3.8 mmol/L (3.3-5.1); Sodium 144 mmol/L (135-145); Total Protein 7.7 g/dL (6.5-8.0)
[2022-01-15 21:35] LABS: Appearance Urine Clear; Color Urine Yellow; Glucose Urine UA Negative (Negative); Leukocyte Esterase Urine Negative (Negative); Nitrite Urine Negative (Negative); Specific Gravity - Urine 1.015 (1.005-1.025); Urine Blood Negative (Negative); Urine Ketones Trace mg/dL (Negative); Urine Protein Negative (Neg-Trace)
[2022-01-15] MEDS: Ketorolac Tromethamine 30 MG/ML VIAL 15 MG IVPUSH (21:40)
--- NOTE | 2022-01-15 22:09 | ED.ABDPAIN ---
HPI - Abdominal Pain General Chief Complaint: Abdominal Pain Stated Complaint: ABD PAIN,NAUSEA,PASSED KIDNEY STONE PER EMS Time Seen by Provider: 01/15/22 20:03 Source: patient Mode of arrival: EMS History of Present Illness HPI narrative: 56-year-old female is brought in by EMS with worsening right upper quadrant abdominal pain with onset at approximately 15:00 and associated with 2 episodes of vomiting and chills. Related Data Home Medications Medication Instructions Recorded Confirmed ibuprofen 600 mg tablet 600 mg PO BID PRN Pain, Moderate 12/04/21 12/04/21 Previous Rx's Medication Instructions Recorded tamsulosin 0.4 mg capsule 0.4 mg PO DAILY #30 caps 12/06/21 Allergies Allergy/AdvReac Type Severity Reaction Status Date / Time No Known Allergies Allergy Verified 01/15/22 19:46 Review of Systems Review of Systems Pertinent positives and negatives as stated in HPI 10 point review of systems is otherwise negative. PMFSH Past Medical History Source: nursing notes reviewed Medical History Family history of GI tract cancer Kidney stones Family History Family History Paternal Uncle Lung cancer Father Esophageal cancer Brother Stomach cancer Social History Social History Alcohol intake: former Advance Directives: No Advance Directives Information Provided: Yes Physical Exam ED Vital Signs: Vital Signs - 24 hr 01/15/22 19:46 Temperature 97.8 F Pulse Rate 98 Respiratory Rate 18 Blood Pressure 192/98 H Pulse Oximetry 98 Oxygen Delivery Method Room Air BMI result Body Mass Index 31.6 VITAL SIGNS: Reviewed. GENERAL: Well developed, well nourished, in moderate distress. HEAD: Normocephalic/atraumatic EYES: PERRLA, EOMI EARS: Ext canals without abnormality OROPHARYNX: no oral lesions noted, posterior pharynx clear LUNGS: Normal breath sounds. No adventitious sounds or accessory muscle use. SpO2<98> CARDIOVASCULAR: Regular rate and rhythm without noted murmurs ABDOMEN: Soft, right upper quadrant pain, non-distended with bowel sounds. MUSCULOSKELETAL: No tenderness, deformities, or effusions noted on gross inspection. EXTREMITIES: No cyanosis, clubbing or edema. SKIN: Inspection of the skin reveals no rashes NEUROLOGIC: Alert and oriented x 4. Strength and sensation to light touch were grossly intact x 4. Course Course Course Narrative: 0237: 56-year-old female with history and clinical presentation most suggestive of cholecystitis, I reviewed all prior imaging studies from 12/05 and at that time patient appeared to have cholecystitis but then was discharged with recommendations of outpatient scheduling. On review of all investigations today patient again has what appears to be cholecystitis and will contact Surgical Services. 2256: There has been a slight delay in administering antibiotics as phlebotomy was having difficulty with lactic acid and blood culture draws. General surgery consultation is accepting admission. Reevaluation(s) Reevaluation #1: I discussed the case with Dr Ponce. Time: 22:29 Medications Administered Discontinued Medications Generic Name Dose Route Start Last Admin Trade Name Freq PRN Reason Stop Dose Admin Ketorolac Tromethamine 15 mg 01/15/22 21:33 01/15/22 21:40 Ketorolac Tromethamine 30 Mg/Ml Vial IVPUSH 01/15/22 21:34 15 mg ONCE ONE Administration Ondansetron HCl 4 mg 01/15/22 20:07 01/15/22 21:06 Ondansetron Hcl 4 Mg/2 Ml Vial IVPUSH 01/15/22 20:08 4 mg ONCE ONE Administration MDM - Abdominal Pain Lab Data Result diagrams: 01/15/22 20:37 01/15/22 20:41 Labs: Lab Results 01/15/22 01/15/22 01/15/22 Range/Units 20:37 20:41 20:52 WBC 12.4 H (4.8-10.8) X10*3/uL RBC 4.67 (4.20-5.50) X10*6/uL Hgb 13.5 (12.0-16.0) g/dl Hct 42.6 (37.0-47.0) % MCV 91.2 (80.0-98.0) fL MCH 28.9 (27.0-33.0) pg MCHC 31.7 (31.0-35.0) g/dl RDW 13.3 (11.0-16.0) % Plt Count 285 (160-400) X10*3/uL MPV 10.7 (9.4-12.3) fL Immature Gran % (Auto) 0.3 (0.0-0.4) % Neut % (Auto) 75.6 H (45-73) % Lymph % (Auto) 16.8 L (20-40) % [place] % (Auto) 6.6 (2-11) % Eos % (Auto) 0.5 (0-4) % Baso % (Auto) 0.2 (0-2) % Lymph # (Auto) 2.1 (1.2-4.9) X10*3/uL [place] # (Auto) 0.8 (0.1-1.2) X10*3/uL Eos # (Auto) 0.1 (0.0-0.4) X10*3/uL Baso # (Auto) 0.0 (0.0-0.2) X10*3/uL Abs Immat Gran (auto) 0.04 H (0.00-0.03) X10*3/uL Absolute Neuts (auto) 9.3 H (2.0-8.3) x10*3/uL Absolute Nucleated RBC 0.000 (0.0-0.012) X10*3/uL Nucleated RBC % (auto) 0.0 (0.0-0.2) /100WBC Sodium 144 (135-145) mmol/L Potassium 3.8 (3.3-5.1) mmol/L Chloride 108 (96-108) mmol/L Carbon Dioxide 23 (22-29) mmol/L Anion Gap 17 (12-20) BUN 22 H D (9-16) mg/dL Creatinine 0.87 (0.5-1.4) mg/dL Estim Creat Clear Calc 71.9 Estimated GFR > 60 Random Glucose 110 (60-115) mg/dL Calcium 9.5 (8.4-10.2) mg/dL Total Bilirubin 0.3 (0.0-1.0) mg/dL AST 19 (5-31) U/L ALT 17 (0-31) U/L Alkaline Phosphatase 82 D (39-117) U/L Total Protein 7.7 D (6.5-8.0) g/dL Albumin 4.7 D (3.5-5.0) g/dL Lipase 20 (8-78) U/L Urine Color Yellow Urine Appearance Clear Urine pH 7.0 (5.0-9.0) Ur Specific [place] 1.015 (1.005-1.025) Urine Protein Negative (Neg-Trace) mg/dL Urine Glucose (UA) Negative (Negative) mg/dL Urine Ketones Trace (Negative) mg/dL Urine Blood Negative (Negative) Urine Nitrite Negative (Negative) Ur Leukocyte Esterase Negative (Negative) Discharge Plan Discharge Clinical Impression: Acute cholecystitis Patient Disposition: Admitted As Inpatient
--- NOTE | 2022-01-15 22:36 | PM.HPGS ---
History of Present Illness History of Present Illness Date of Service: 01/16/22 Chief complaint: RUQ Pain Narrative: The patient is a 56-year-old woman from [place] who has a history of kidney stones and presented to [facility] on 12/[facility]/21 with a complaint of LEFT FLANK PAIN and during CT of her abdomen and pelvis, a concern over gallbladder malignancy was raised even though she was not having any right upper quadrant pain. In workup, she had a HIDA that showed nonvisualization of the gallbladder, but she had no abdominal pain and recently received narcotics which made the test equivocal. She subsequently had an MRCP that was interpreted as no evidence of malignancy.? She denied any indigestion, epigastric or right upper quadrant symptoms of postprandial pain and her diet was advanced and she was discharged with the option to follow up with me if her symptoms return. The patient states she was having lower abdominal pain in her bilateral lower quadrants and felt she was passing a kidney stone and was having extreme pain. She states she retrieved the kidney stone and kept it but had ongoing abdominal pain and was brought by ambulance to the hospital where she was found to have right upper quadrant pain. Last night, was contacted by Dr. Mueller as the patient presented with right upper quadrant pain, a mild leukocytosis and ultrasound findings concerning for acute calculous cholecystitis. This morning, she asked me to speak with her Johnson by face time and the hospital interpreter translator helped facilitate our discussion. She notes ongoing pain in the right upper quadrant as well as lower abdomen and is adamant that she passed a kidney stone since she has it in her possession. She notes that the upper abdominal pain started abruptly yesterday and has been getting progressively worse since associated with nausea. Review of Systems Review of Systems: Yes all other systems are reviewed and are negative Constitutional: Constitutional: Reports as per [facility] Past Medical History Medical History Family history of GI tract cancer Kidney stones Family History Family History Paternal Uncle Lung cancer Father Esophageal cancer Brother Stomach cancer Social History Social History Alcohol intake: former Advance Directives: No Advance Directives Information Provided: Yes Meds Allergies Allergy/AdvReac Type Severity Reaction Status Date / Time No Known Allergies Allergy Verified 01/15/22 19:46 Active Medications: Current Medications Piperacillin Sod/Tazobactam (Sod 3.375 gm/ Sodium Chloride) 50 mls @ 100 mls/hr IV ONCE ONE Stop: 01/15/22 22:51 Sodium Chloride (Ns) 1,000 mls @ 999 mls/hr IV .Q1H1M NURIA Stop: 01/15/22 23:30 Home Medications Medication Instructions Recorded Confirmed Last Taken Type ascorbic acid (vitamin C) 500 mg 500 mg PO DAILY 01/16/22 01/16/22 Unknown History tablet (Vitamin C) pyridoxine (vitamin B6) 100 mg 1 tab PO DAILY 01/16/22 Unknown History tablet salmon oil 1,000 mg-omega-3 fatty 1 cap PO DAILY 01/16/22 01/16/22 Unknown History acids 210 mg capsule Physical Exam Vital Signs: Vital Signs: Last Vital Signs Temp 97.8 F 01/15/22 19:46 Pulse 98 01/15/22 19:46 Resp 18 01/15/22 19:46 BP 192/98 H 01/15/22 19:46 Pulse Ox 98 01/15/22 19:46 O2 Del Method 01/15/22 19:46 BMI result Body Mass Index 31.6 The patient is non-toxic & in good spirits NC/AT, PERRLA, EOMI Mood, affect & judgment all appear appropriate Sclera anicteric conjunctiva pink and moist Oropharynx is clear with no aphthous ulcers, Mallampati class 4, mucous membranes moist Neck is supple with no masses, adenopathy or bruits Heart is regular, normal S1-S2 no rubs or murmurs Lungs are clear and equal anteriorly with no audible wheezing, rubs or dullness to percussion Abdomen is overweight with no demonstrable hernias. Significant right upper quadrant pain to percussion with guarding is noted. No HSM, masses or bruits are present. Rectal exam is deferred Skin has good turgor and is free of rashes Extremities free of cyanosis clubbing edema Results Results Labs: Short CBC 01/15/22 Range/Units 20:37 WBC 12.4 H (4.8-10.8) X10*3/uL Hgb 13.5 (12.0-16.0) g/dl Hct 42.6 (37.0-47.0) % Plt Count 285 (160-400) X10*3/uL BMP 01/15/22 20:41 Sodium 144 Potassium 3.8 Chloride 108 Carbon Dioxide 23 BUN 22 H D Creatinine 0.87 Calcium 9.5 Liver Function 01/15/22 Range/Units 20:41 Total Bilirubin 0.3 (0.0-1.0) mg/dL AST 19 (5-31) U/L ALT 17 (0-31) U/L Alkaline Phosphatase 82 D (39-117) U/L Albumin 4.7 D (3.5-5.0) g/dL Urine 01/15/22 Range/Units 20:52 Urine Color Yellow Urine Appearance Clear Urine pH 7.0 (5.0-9.0) Ur Specific [place] 1.015 (1.005-1.025) Urine Protein Negative (Neg-Trace) mg/dL Urine Glucose (UA) Negative (Negative) mg/dL lactic acid 1.1/normal Abdominal ultrasound report/results: report reviewed and image reviewed Additional studies: CBD is reported at 4 mm; gallbladder wall thickening and sludge is present but no intrahepatic ductal dilation or talia cholecystic fluid is noted. Assessment and Plan (1) Acute cholecystitis: Status: Acute (2) Gallbladder polyp: Status: Acute (3) Gallbladder sludge: Status: Acute Plan I explained the symptoms of acute cholecystitis and recommended laparoscopic cholecystectomy which I explained as complete removal of the gallbladder since it will continue to form stones, possible open cholecystectomy and possible bile duct x-ray/cholangiogram. I reviewed the options of continued observation and 2nd opinion which was declined. I also reviewed the inherent risks to surgery which include, but are not limited to: Bleeding that could require another operation or blood transfusion, the need for open surgery, the unlikely but possible issue of bile leak that could require an ERCP, the risk of retained common duct stones that could require an ERCP, the risk of common bile duct injury which would require transfer to a larger institution for another operation. Patient seemed to understand her options, the hospital interpreter translator helped facilitate questions and answered and the patient wants to proceed. The interpreter translator help answer the patient's questions and informed consent was obtained. The patient's , Johnson, speaks [place] and the interpreter translator related that the patient would like me to call her by phone when the operation is complete at [phone]. Instructions regarding diet and activity reviewed and apparently understood. The patient is advised to avoid rich fatty foods postoperatively to avoid GI distress/diarrhea and advised to not lift more than 20 lb for medical reasons to minimize the risk of hernia postoperatively. I recommended that she discuss these restrictions with her employer and that she is not disabled during this time frame but can perform light duty. The patient's questions seemed to be satisfactorily answered. Quality Stroke Does the patient have a stroke diagnosis?: No VTE Prior VTE?: No VTE Risk Level:: Surgical - moderate VTE Device Contraindication: N/A - Device Ordered VTE Drug Contraindication: Treatment Not Indicated Procedures Date of Service Date of Service: 01/16/22
[2022-01-15 22:56] LABS: Lactic Acid 1.1 mmol/L (0.5-2.0)
[2022-01-15] MEDS: 0.9 % Sodium Chloride 1,000 ML 999 ML IV (23:07)
[2022-01-15] MEDS: HYDROmorphone HCl 0.5 MG/0.5 ML SYRINGE IVPUSH (23:07)
[2022-01-15 23:34] LABS: COVID-19 Test Negative (Negative); IDNOW Serial# 16C4AD1C
[2022-01-15] MEDS: Piperacillin Sodium/Tazobactam 3.375 GM in 0.9 % Sodium Chloride 50 ML IV (23:43)
[2022-01-16] VITALS (14 sets, daily range): BP systolic 108–159; BP diastolic 55–87; PULSE 74–104; RESP 15–20; TEMP 35.9–36.8; O2SAT 90–98
[2022-01-16] MEDS: Lactated Ringers 1,000 ML 125 ML IVCONT ×2 (02:23→21:55)
[2022-01-16] MEDS: HYDROmorphone HCl 1 MG/ML SYRINGE 0.5 MG IVPUSH ×2 (03:54→16:22)
--- NOTE | 2022-01-16 04:35 | PC.NURSE ---
0400 rounding done ,pt asleep call valero within reach .
[2022-01-16] MEDS: Piperacillin Sodium/Tazobactam 3.375 GM in 0.9 % Sodium Chloride 50 ML IV ×3 (05:12→17:58)
[2022-01-16 06:56] LABS: Alanine Aminotransferase 17 U/L (0-31); Albumin Level 4.5 g/dL (3.5-5.0); Alkaline Phosphatase 78 U/L (39-117); Anion Gap 18 (12-20); Aspartate Amino Transferase 24 U/L (5-31); Bilirubin Total 0.6 mg/dL (0.0-1.0); Blood Urea Nitrogen 12 mg/dL (9-16); Calcium 8.9 mg/dL (8.4-10.2); Carbon Dioxide 20 mmol/L (22-29); Chloride 105 mmol/L (96-108); Creatinine Clr Calc Pharmacy 86.9; Estimated Glomerular Filt Rate > 60; Glucose Random 117 mg/dL (60-115); Potassium 3.7 mmol/L (3.3-5.1); Sodium 139 mmol/L (135-145); Total Protein 7.5 g/dL (6.5-8.0)
--- NOTE | 2022-01-16 07:30 | PC.NURSE ---
PT A&Ox4, reports abd pain with no relief, resting comfortable on right side. Abd tender to touch. PT remains NPO.
[2022-01-16 08:35] LABS: Basophils Percent Auto 0.1 % (0-2); Hematocrit 43.8 % (37.0-47.0); Hemoglobin 14.5 g/dl (12.0-16.0); Imm Gran Abs Auto 0.07 X10*3/uL (0.00-0.03); Imm Gran Pct Auto 0.4 % (0.0-0.4); Lymphocytes Absolute Auto 1.4 X10*3/uL (1.2-4.9); Lymphocytes Percent Auto 8.7 % (20-40); Mean Corpuscular HGB Conc 33.1 g/dl (31.0-35.0); Mean Corpuscular Hemoglobin 28.9 pg (27.0-33.0); Mean Corpuscular Volume 87.4 fL (80.0-98.0); Mean Platelet Volume 10.1 fL (9.4-12.3); Monocytes Absolute Auto 1.1 X10*3/uL (0.1-1.2); Monocytes Percent Auto 6.9 % (2-11); Neutrophils Absolute Auto 13.9 x10*3/uL (2.0-8.3); Neutrophils Percent Auto 83.9 % (45-73); Platelet Count 305 X10*3/uL (160-400); Red Blood Count 5.01 X10*6/uL (4.20-5.50); Red Cell Distribution Width 13.4 % (11.0-16.0); White Blood Count 16.5 X10*3/uL (4.8-10.8)
[2022-01-16 08:40] LABS: MANUAL DIFF FLAG NO
--- NOTE | 2022-01-16 09:50 | PHA.MEDREC ---
Addendum entered by Herman Mendoza 01/16/22 09:55: Utilized [employer]. Original Note: Pharmacy Consult ? Medication Reconciliation Pharmacy has completed the medication reconciliation.
--- NOTE | 2022-01-16 09:59 | P.CONAN_ITS ---
HPI - Anesthesia Eval Consult details Narrative: acute cholecystitis PMFSH Active Problems Active Problems: All Active Problems (Updated 01/15/22 @ 22:56 by Mirian Mueller MD) Acute cholecystitis (Acute) Vulvar lesion (Acute) COVID-19 (Acute) Gallbladder polyp (Acute) Gallbladder sludge (Acute) Abnormal CT of the abdomen (Acute) Gallbladder disease (Acute) Brachial plexus injury, left (Acute) Kidney stones (Acute) Past Medical History Medical History Family history of GI tract cancer Kidney stones Family History Family History Paternal Uncle Lung cancer Father Esophageal cancer Brother Stomach cancer Family history of problems with anesthesia: No Surgical History History of Problems with Anesthesia: No Social History Social History Alcohol intake: former Advance Directives: No Advance Directives Information Provided: Yes Meds Allergies Allergy/AdvReac Type Severity Reaction Status Date / Time No Known Allergies Allergy Verified 01/15/22 19:46 Active Medications: Current Medications Hydromorphone HCl (Hydromorphone Hcl 1 Mg/Ml Syringe) 0.5 mg IVPUSH Q4H PRN; Protocol PRN Reason: Pain, Severe (Pain Scale 7-10) Last Admin: 01/16/22 03:54 Dose: 0.5 mg Lactated Ringer's (Lr) 1,000 mls @ 125 mls/hr IVCONT .Q8H [facility] Last Admin: 01/16/22 08:37 Dose: Not Given Piperacillin Sod/Tazobactam (Sod 3.375 gm/ Sodium Chloride) 50 mls @ 100 mls/hr IV Q6H [facility] Last Infusion: 01/16/22 05:54 Dose: Infused Ondansetron HCl (Ondansetron Hcl 4 Mg/2 Ml Vial) 4 mg IVPUSH Q8H PRN PRN Reason: Nausea and Vomiting Sodium Chloride (0.9 % Sodium Chloride Flush 3 Ml Syringe) 3 ml IVFLUSH QSHIFT [facility] Last Admin: 01/16/22 07:19 Dose: Not Given Home Medications Medication Instructions Recorded Confirmed Last Taken Type ascorbic acid (vitamin C) 500 mg 500 mg PO DAILY 01/16/22 01/16/22 Unknown History tablet (Vitamin C) pyridoxine (vitamin B6) 100 mg 1 tab PO DAILY 01/16/22 01/16/22 01/14/22 History tablet salmon oil 1,000 mg-omega-3 fatty 1 cap PO DAILY 01/16/22 01/16/22 Unknown History acids 210 mg capsule Exam Exam Date and Time: January 16, 2022 0959 Height,Weight and Vital Signs: Height 5 ft 3 in Weight 81.1 kg Last Vital Signs Temp 98.0 F 01/16/22 07:40 Pulse 104 H 01/16/22 07:40 Resp 18 01/16/22 07:40 BP 159/87 H 01/16/22 07:40 Pulse Ox 95 01/16/22 07:40 O2 Del Method 01/16/22 07:40 Pertinent Lab Results Pertinent Lab Results: Laboratory Tests 01/15/22 01/15/22 01/15/22 20:37 20:41 20:52 WBC 12.4 H RBC 4.67 Hgb 13.5 Hct 42.6 MCV 91.2 MCH 28.9 MCHC 31.7 RDW 13.3 Plt Count 285 MPV 10.7 Immature Gran % (Auto) 0.3 Neut % (Auto) 75.6 H Lymph % (Auto) 16.8 L [place] % (Auto) 6.6 Eos % (Auto) 0.5 Baso % (Auto) 0.2 Lymph # (Auto) 2.1 [place] # (Auto) 0.8 Eos # (Auto) 0.1 Baso # (Auto) 0.0 Abs Immat Gran (auto) 0.04 H Absolute Neuts (auto) 9.3 H Absolute Nucleated RBC 0.000 Nucleated RBC % (auto) 0.0 Sodium 144 Potassium 3.8 Chloride 108 Carbon Dioxide 23 Anion Gap 17 BUN 22 H D Creatinine 0.87 Estim Creat Clear Calc 71.9 Estimated GFR > 60 Random Glucose 110 Lactic Acid Calcium 9.5 Total Bilirubin 0.3 AST 19 ALT 17 Alkaline Phosphatase 82 D Total Protein 7.7 D Albumin 4.7 D Lipase 20 Urine Color Yellow Urine Appearance Clear Urine pH 7.0 Ur Specific [place] 1.015 Urine Protein Negative Urine Glucose (UA) Negative Urine Ketones Trace Urine Blood Negative Urine Nitrite Negative Ur Leukocyte Esterase Negative COVID-19 ([facility]) COVID-19 Clin Com 11/01/15/22 01/16/22 22:38 23:13 06:17 WBC RBC Hgb Hct MCV MCH MCHC RDW Plt Count MPV Immature Gran % (Auto) Neut % (Auto) Lymph % (Auto) [place] % (Auto) Eos % (Auto) Baso % (Auto) Lymph # (Auto) [place] # (Auto) Eos # (Auto) Baso # (Auto) Abs Immat Gran (auto) Absolute Neuts (auto) Absolute Nucleated RBC Nucleated RBC % (auto) Sodium 139 Potassium 3.7 Chloride 105 Carbon Dioxide 20 L Anion Gap 18 BUN 12 Creatinine 0.72 Estim Creat Clear Calc 86.9 Estimated GFR > 60 Random Glucose 117 H Lactic Acid 1.1 Calcium 8.9 D Total Bilirubin 0.6 AST 24 ALT 17 Alkaline Phosphatase 78 Total Protein 7.5 Albumin 4.5 Lipase Urine Color Urine Appearance Urine pH Ur Specific [place] Urine Protein Urine Glucose (UA) Urine Ketones Urine Blood Urine Nitrite Ur Leukocyte Esterase COVID-19 ([facility]) Negative COVID-19 Clin Com See Note 01/16/22 08:25 WBC 16.5 H RBC 5.01 Hgb 14.5 Hct 43.8 MCV 87.4 MCH 28.9 MCHC 33.1 RDW 13.4 Plt Count 305 MPV 10.1 Immature Gran % (Auto) 0.4 Neut % (Auto) 83.9 H Lymph % (Auto) 8.7 L [place] % (Auto) 6.9 Eos % (Auto) 0.0 Baso % (Auto) 0.1 Lymph # (Auto) 1.4 [place] # (Auto) 1.1 Eos # (Auto) 0.0 Baso # (Auto) 0.0 Abs Immat Gran (auto) 0.07 H Absolute Neuts (auto) 13.9 H Absolute Nucleated RBC 0.000 Nucleated RBC % (auto) 0.0 Sodium Potassium Chloride Carbon Dioxide Anion Gap BUN Creatinine Estim Creat Clear Calc Estimated GFR Random Glucose Lactic Acid Calcium Total Bilirubin AST ALT Alkaline Phosphatase Total Protein Albumin Lipase Urine Color Urine Appearance Urine pH Ur Specific [place] Urine Protein Urine Glucose (UA) Urine Ketones Urine Blood Urine Nitrite Ur Leukocyte Esterase COVID-19 ([facility]) COVID-19 Clin Com Airway Mallampati Class: II TM Dist: >3cm Neck ROM: Full Loose/Missing/Broken Teeth: No Heart: RRR Lungs: CTA Assessment and Plan Assessment Anesthesia Assessment: Anesthesia Plan Discussed and Chart Reviewed Final Anesthetic Review Family History of Problems with Anesthesia: No History of Problems with Anesthesia: No NPO: Yes ASA Class: II and Emergency Final Preanesthetic Review: No Changes in Pt Med Stat, Meds/Allgs Chart Reviewed, Consent Obtained/Reviewed and Anes Risks/Benef Reviewed Patient Risk: Intermediate Procedure Risk: Intermediate Anesthetic Plan Anesthetic Plan: GA Disposition: Standard PACU
--- NOTE | 2022-01-16 10:04 | W.PM.OPN ---
Operative Note Operative Note Date of Service: 01/16/22 Narrative: Preop diagnosis: [Acute calculus cholecystitis and incidental umbilical hernia] Postop diagnosis: [Gangrenous cholecystitis and incidental umbilical hernia] Procedure: [Laparoscopic cholecystectomy] Surgeon: Mark Ponce MD Assist: [none] Anesthesia: [GET, local was ropivacaine 0.5% plain] Estimated blood loss: [50cc] Specimen: [1) bilious gallbladder fluid for Gram stain and culture; 2 gallbladder and contents] Intraoperative findings: [Gangrenous gallbladder with 4-5mm cystic duct, 3 mm cystic artery in the usual location and inflamed, friable omentum and gallbladder interface with liver secondary to gangrenous cholecystitis] Indications: [The patient is a 56-year-old woman with a history of kidney stones who presented in November with left flank pain and CT anomaly concerning for malignancy. Malignancy was excluded by MRCP in the patient had been doing well until yesterday when she developed severe cramping pain and passed a kidney stone. She states she retained the kidney stone but had ongoing epigastric and then right upper quadrant pain associated with nausea and presented with a leukocytosis and ultrasound a graphic findings of acute cholecystitis. In the time interval, she is worsen and via translator/interpreter, we discussed the pros and cons of cholecystectomy versus observation. I explained the symptoms of acute cholecystitis and recommended laparoscopic or open cholecystectomy, possible intraoperative cholangiogram. I reviewed the option of continued observation and 2nd opinion which was declined. I also reviewed the inherent risks to surgery which include, but are not limited to: Bleeding that could require another operation or blood transfusion, the need for open surgery, the unlikely but possible issue of bile leak that could require an ERCP, the risk of retained common duct stones that could require an ERCP, the risk of common bile duct injury which would require transfer to a larger institution for another operation. Patient seemed to understand her options, and via translator/interpreter had her questions answered. She seems to understand and wants to proceed, and added that she would like me to call her Johnson when the procedure is done today..] Procedure: [The patient was identified in preoperative holding and again in the operating room and placed supine on the table. The patient voided bladder retention representative, sequential compression stockings were in place, subcu heparin had been administered and antibiotics per protocol were given. The patient was induced in general endotracheal anesthesia administered with excellent effect. An appropriate time-out was performed. A footboard was utilized. The patient's abdomen was widely prepped and draped in the usual manner for surgery using chlorhexidine. Preemptive local was used at all trocar insertion sites. Again at the supraumbilical location and after infiltrating local, made a stab incision and placed a Veress needle without difficulty. An appropriate drop test was performed and a pneumoperitoneum of 15 mmHg was obtained using carbon dioxide. opening pressure was 6 mmHgNext, the needle was withdrawn and a 5 mm/30 degree laparoscoped over Optiview trocar was used to access the abdomen without incident. Upon examining the abdomen, there was no evidence of injury from the Veress needle or trocar. Next, 5 mm trocars were placed in the epigastric, subcostal and right anterior axillary line just above the line of the umbilicus. Under direct laparoscopic vision, the 5 mm umbilical port was upsized to a 12 mm. The patient was then positioned in reverse Trendelenburg position and banked left. The gallbladder was clearly identified and grasped by its fundus, however was tense and friable and required decompression with a cyst aspirated. Approximately 30 cc of bilious and malodorous fluid was demonstrated and a grasper placed on the fundus. Adhesions to the gallbladder were taken down and given the acute necrosis and inflammation, the whole field was oozy, without discrete bleeding point. The gallbladder was retracted cranially and anteriorly and dissection began in the cystic triangle. Dissection was accomplished with the [place] suction manager wealth management due to the friability of the tissues. The cystic duct was identified at its junction on the gallbladder and dissection began laterally, then circumferentially dissected using the [place] dissector and hook. The cystic artery was then carefully identified and circumferentially dissected. Once dissection of both structures was complete and the critical view of safety demonstrated, the duct and artery were double clipped proximally and once distally and sharply divided. Electrocautery was used to remove the gallbladder from its fossa on the liver. Liver bed was inspected for hemostasis and the clips were noted to be on the respective structures. The gallbladder was placed in an Endo-Catch bag and delivered through the umbilicus under direct laparoscopic vision. The abdomen was again inspected with the laparoscoped and a abdomen deflated to assess for hemostasis. There was clot that was irrigated with 2 separate L bags of irrigation until it ran clear and the liver bed was hemostatic. Next, a EUSEBIO drain was placed in Morison's pouch and delivered through the 5 mm lowest trocar in the right side of the abdomen and secured to the skin with a 2-0 silk suture. The patient was returned to neutral position, the abdomen deflated and the fascia of the supraumbilical incision closed with interrupted Vicryl sutures. Skin was closed with 4-0 Monocryl subcuticular sutures. Mastisol and Steri-Strips were applied followed by Band-Aids. The patient tolerated the procedure well and was extubated recovered in stable condition. All sponge instrument counts were correct. At the patient's request I called her Johnson at [phone] to apprise him of the operation and plan. His questions seemed to be satisfactorily answered. Explained that given the intraoperative findings, we will keep her overnight and monitor drainage and check labs regarding risk of infection/back to bili a. His questions seemed to be answered.]
--- NOTE | 2022-01-16 10:15 | PC.NURSE ---
Report given to short stay. Transporter notified.
--- NOTE | 2022-01-16 16:34 | PM.EVENT ---
Event Note Date of Service: 01/16/22 Event Note: Postop check With the help of the hospital interpreter translator, I met with the patient, her , son and daughter. I reviewed the intraoperative findings and explained that the gallbladder appeared to be dying and there may have been an infection, consequently, I had to leave a temporary plastic drain that will hopefully be removed in 2-7 days. Need to identify, speciate and obtain antibiotic sensitivities of any organisms was explained and questions answered. 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 Her questions and her family's questions seemed to be satisfactorily answered. Dietary restrictions were again reviewed. Patient's vitals are stable postoperative. Continue present management.
[2022-01-16] MEDS: Docusate Sodium 100 MG CAPSULE 200 MG PO (21:55)
[2022-01-16] MEDS: Acetaminophen 325 MG TABLET 975 MG PO (21:59)
[2022-01-17] VITALS (9 sets, daily range): BP systolic 96–163; BP diastolic 54–97; PULSE 67–92; RESP 14–18; TEMP 36.1–36.8; O2SAT 93–95
[2022-01-17] MEDS: Piperacillin Sodium/Tazobactam 3.375 GM in 0.9 % Sodium Chloride 50 ML IV ×5 (00:33→23:43)
[2022-01-17] MEDS: Lactated Ringers 1,000 ML 125 ML IVCONT (05:27)
[2022-01-17] MEDS: HYDROmorphone HCl 1 MG/ML SYRINGE 0.5 MG IVPUSH (05:45)
[2022-01-17 06:25] LABS: MANUAL DIFF FLAG NO
[2022-01-17 06:36] LABS: Basophils Percent Auto 0.1 % (0-2); Hematocrit 35.6 % (37.0-47.0); Hemoglobin 11.5 g/dl (12.0-16.0); Imm Gran Abs Auto 0.07 X10*3/uL (0.00-0.03); Imm Gran Pct Auto 0.5 % (0.0-0.4); Lymphocytes Absolute Auto 1.4 X10*3/uL (1.2-4.9); Lymphocytes Percent Auto 10.6 % (20-40); Mean Corpuscular HGB Conc 32.3 g/dl (31.0-35.0); Mean Corpuscular Hemoglobin 28.6 pg (27.0-33.0); Mean Corpuscular Volume 88.6 fL (80.0-98.0); Mean Platelet Volume 10.7 fL (9.4-12.3); Monocytes Absolute Auto 0.8 X10*3/uL (0.1-1.2); Monocytes Percent Auto 6.3 % (2-11); Neutrophils Absolute Auto 10.6 x10*3/uL (2.0-8.3); Neutrophils Percent Auto 82.5 % (45-73); Platelet Count 274 X10*3/uL (160-400); Red Blood Count 4.02 X10*6/uL (4.20-5.50); Red Cell Distribution Width 13.6 % (11.0-16.0); White Blood Count 12.8 X10*3/uL (4.8-10.8)
[2022-01-17 06:55] LABS: Alanine Aminotransferase 59 U/L (0-31); Albumin Level 3.5 g/dL (3.5-5.0); Alkaline Phosphatase 59 U/L (39-117); Anion Gap 11 (12-20); Aspartate Amino Transferase 46 U/L (5-31); Bilirubin Total 0.9 mg/dL (0.0-1.0); Blood Urea Nitrogen 12 mg/dL (9-16); Calcium 8.6 mg/dL (8.4-10.2); Carbon Dioxide 25 mmol/L (22-29); Chloride 109 mmol/L (96-108); Creatinine Clr Calc Pharmacy 79.2; Estimated Glomerular Filt Rate > 60; Glucose Random 104 mg/dL (60-115); Potassium 4.2 mmol/L (3.3-5.1); Sodium 141 mmol/L (135-145); Total Protein 5.8 g/dL (6.5-8.0)
--- NOTE | 2022-01-17 08:07 | P.PNGS_ITS ---
Subjective Subjective Date of Service: 01/17/22 Patient reports: no new complaints Interval history: The patient was initially seen without an aerial photograph interpreter since her labs are not reviewed and there is additional information to review at a later time with an aerial photograph interpreter. Patient denies any significant pain, difficulty breathing or shortness of breath. She does note pain when she coughs and tries to move around wish ever assured her is typical EUSEBIO is serosanguineous with no bile Physical Exam Vital Signs: Vital Signs: Last Vital Signs Temp 97.0 F 01/17/22 07:55 Pulse 67 01/17/22 07:55 Resp 18 01/17/22 07:55 BP 96/55 L 01/17/22 07:55 Pulse Ox 93 01/17/22 07:55 O2 Del Method 01/17/22 07:55 O2 Flow Rate 2 01/17/22 07:55 BMI result Body Mass Index 31.6 She is nontoxic and in good spirits Sclera remain anicteric, conjunctiva pink and moist, DOV IV, EOMI Abdomen is soft with expected incisional tenderness, dressings are C/D/I EUSEBIO output is serosanguineous, nonbilious and per nursing staff, 30 cc over the last shift. Objective Data Active Medications Acetaminophen (Acetaminophen 325 Mg Tablet) 975 mg PO Q6H PRN PRN Reason: Pain, Mild (Pain Scale 1-3) Last Admin: 01/16/22 21:59 Dose: 975 mg Documented By: PARAG Docusate Sodium (Docusate Sodium 100 Mg Capsule) 200 mg PO BID NURIA Last Admin: 01/16/22 21:55 Dose: 200 mg Documented By: PARAG Fentanyl (Fentanyl Citrate/Pf 100 Mcg/2 Ml Vial) 50 mcg IVPUSH Q5M PRN; Protocol PRN Reason: Pain, Severe (Pain Scale 7-10) Hydromorphone HCl (Hydromorphone Hcl 1 Mg/Ml Syringe) 0.5 mg IVPUSH Q4H PRN; Protocol PRN Reason: Pain, Severe (Pain Scale 7-10) Last Admin: 01/17/22 05:45 Dose: 0.5 mg Documented By: PARAG Hydromorphone HCl (Hydromorphone Hcl 0.5 Mg/0.5 Ml Syringe) 0.25 mg IVPUSH Q5M PRN; Protocol PRN Reason: Pain, Severe (Pain Scale 7-10) Hydromorphone HCl (Hydromorphone Hcl 0.5 Mg/0.5 Ml Syringe) 0.25 mg IVPUSH Q2H PRN; Protocol PRN Reason: Pain, Moderate (Pain Scale 4-6 Lactated Ringer's (Lr) 1,000 mls @ 125 mls/hr IVCONT .Q8H [facility] Last Admin: 01/17/22 05:27 Dose: 125 mls/hr Documented By: PARAG Piperacillin Sod/Tazobactam (Sod 3.375 gm/ Sodium Chloride) 50 mls @ 100 mls/hr IV Q6H [facility] Last Infusion: 01/17/22 06:30 Dose: 100 mls/hr Documented By: PARAG Promethazine HCl 12.5 mg/ (Sodium Chloride) 50.5 mls @ 202 mls/hr IV ONCE PRN PRN Reason: Nausea and Vomiting Ondansetron HCl (Ondansetron Hcl 4 Mg/2 Ml Vial) 4 mg IVPUSH Q8H PRN PRN Reason: Nausea and Vomiting Oxycodone HCl (Oxycodone Hcl Immed Release 5 Mg Tablet) 5 mg PO Q4H PRN PRN Reason: Pain, Moderate (Pain Scale 4-6 Sodium Chloride (0.9 % Sodium Chloride Flush 3 Ml Syringe) 3 ml IVFLUSH QSHIFT [facility] Last Admin: 01/17/22 00:29 Dose: Not Given Documented By: PARAG Non-Admin Reason: IV Running Labs CBC & Chem 7: 01/17/22 06:05 01/17/22 06:05 Labs: Laboratory Results - last 24 hr 01/16/22 01/17/22 01/17/22 08:25 06:05 06:05 MCV 87.4 88.6 MCH 28.9 28.6 MCHC 33.1 32.3 RDW 13.4 13.6 Plt Count 305 274 MPV 10.1 10.7 Immature Gran % (Auto) 0.4 0.5 H Neut % (Auto) 83.9 H 82.5 H Lymph % (Auto) 8.7 L 10.6 L [place] % (Auto) 6.9 6.3 Eos % (Auto) 0.0 0.0 Baso % (Auto) 0.1 0.1 Lymph # (Auto) 1.4 1.4 [place] # (Auto) 1.1 0.8 Eos # (Auto) 0.0 0.0 Baso # (Auto) 0.0 0.0 Abs Immat Gran (auto) 0.07 H 0.07 H Absolute Neuts (auto) 13.9 H 10.6 H Absolute Nucleated RBC 0.000 0.000 Nucleated RBC % (auto) 0.0 0.0 Anion Gap 11 L Estim Creat Clear Calc 79.2 Estimated GFR > 60 Random Glucose 104 Calcium 8.6 Total Bilirubin 0.9 AST 46 H ALT 59 H Alkaline Phosphatase 59 Total Protein 5.8 L Albumin 3.5 Microbiology Microbiology Results: Microbiology 01/15/22 23:35 Blood Culture - Preliminary Blood - Venous No growth after 24 hours. 01/16/22 11:30 Gram Stain - Final Gallbladder Procedures Date of Service Date of Service: 01/17/22 Progress Note: A&P Assessment and plan (1) Acute cholecystitis: Status: Acute Plan Gram stain of the intra luminal bile showed no evidence of organisms. L eukocytosis is expected secondary to the stress of surgery Continue to trend EUSEBIO output, advanced to low-fat diet and will reassess for possible removal of drain and possible discharge later today. Will need interpretive services. Time Spent With Patient Time: Total time spent is greater than 50% in coordination of care (as documented) at patient's floor/unit and/or counseling patient: Quality Stroke Does the patient have a stroke diagnosis?: No VTE Prior VTE?: No VTE Risk Level:: Surgical - moderate VTE Device Contraindication: N/A - Device Ordered VTE Drug Contraindication: Treatment Not Indicated
[2022-01-17] MEDS: Docusate Sodium 100 MG CAPSULE 200 MG PO ×2 (08:57→20:10)
--- NOTE | 2022-01-17 09:56 | MHC.CM.PN ---
Addendum entered by Ely Man 01/18/22 09:11: PT REPORTS SHE LIVES WITH HER AND IS INDEPENDENT WITH CARE PT HAS NO SERVICES AND NO DME SHE IS COVID VAX X 3 SHE COMPLETED A NEW HCP TODAY NAMING HER SON, KYE AND DAUGHTER, BEBE HER AGENTS PCP: DAYANNA KHAN DCP: HOME NO SERVICES Original Note: CASE MANAGEMENT ATTMEPTED TO MEET WITH PATIENT, WHO IS JUST STARTING TO EAT BREAKFAST. SHE IS AWARE OF CASE MANAGEMENT ROLE AND NAME AND PLAN WRITTEN ON [employer]ITE[employer]ARD. SHE DOES NOT FEEL THE NEED FOR ANY [facility] SERVICES. SHE IS FULLY INDEPENDENT. CASE MANAGEMENT TO RETURN FOR COMPLETE ASSESSMENT
--- NOTE | 2022-01-17 12:59 | HO.POSTANES ---
Post Anesthesia Evaluation Post Anesthesia Evaluation Vital Signs: Vital Signs Temp Pulse Resp BP Pulse Ox O2 Del Method O2 Flow Rate 01/17/22 11:33 98.0 F 77 18 163/97 H 95 Room Air 01/17/22 11:31 97.7 F 70 18 103/60 94 Nasal Cannula 2 01/17/22 10:08 94 Nasal Cannula 01/17/22 07:55 97.0 F 67 18 96/55 L 93 Nasal Cannula 2 01/17/22 03:47 97.4 F 73 14 116/66 94 Nasal Cannula 2 Anesthesia: General Endotracheal-GETA Mental Status: Awake Pain Control: Satisfactory Nausea/Vomiting: None Hydration: Adequate Anesthesia-Related Issues: No Anes. Related Issues
[2022-01-17] MEDS: Lactated Ringers 1,000 ML 75 ML IVCONT (18:02)
[2022-01-17] MEDS: oxyCODONE HCl Immed Release 5 MG TABLET PO (18:43)
[2022-01-17] MEDS: Acetaminophen 325 MG TABLET 975 MG PO (21:26)
[2022-01-18 03:45] VITALS: BP 121/57; PULSE 76; RESP 18; TEMP 36.7; O2SAT 94
[2022-01-18] MEDS: Piperacillin Sodium/Tazobactam 3.375 GM in 0.9 % Sodium Chloride 50 ML IV ×2 (05:35→11:25)
[2022-01-18 06:55] LABS: MANUAL DIFF FLAG NO
[2022-01-18 07:00] LABS: Basophils Percent Auto 0.4 % (0-2); Eosinophils Absolute Auto 0.1 X10*3/uL (0.0-0.4); Eosinophils Percent Auto 1.1 % (0-4); Hemoglobin 10.9 g/dl (12.0-16.0); Imm Gran Abs Auto 0.03 X10*3/uL (0.00-0.03); Imm Gran Pct Auto 0.3 % (0.0-0.4); Lymphocytes Absolute Auto 3.6 X10*3/uL (1.2-4.9); Lymphocytes Percent Auto 40.6 % (20-40); Mean Corpuscular HGB Conc 32.1 g/dl (31.0-35.0); Mean Corpuscular Hemoglobin 28.8 pg (27.0-33.0); Mean Corpuscular Volume 89.7 fL (80.0-98.0); Mean Platelet Volume 10.8 fL (9.4-12.3); Monocytes Absolute Auto 0.5 X10*3/uL (0.1-1.2); Monocytes Percent Auto 5.7 % (2-11); Neutrophils Absolute Auto 4.6 x10*3/uL (2.0-8.3); Neutrophils Percent Auto 51.9 % (45-73); Platelet Count 257 X10*3/uL (160-400); Red Blood Count 3.79 X10*6/uL (4.20-5.50); Red Cell Distribution Width 14.1 % (11.0-16.0); White Blood Count 8.9 X10*3/uL (4.8-10.8)
[2022-01-18 07:35] LABS: Alanine Aminotransferase 44 U/L (0-31); Albumin Level 3.5 g/dL (3.5-5.0); Alkaline Phosphatase 51 U/L (39-117); Anion Gap 13 (12-20); Aspartate Amino Transferase 27 U/L (5-31); Bilirubin Total 0.4 mg/dL (0.0-1.0); Blood Urea Nitrogen 16 mg/dL (9-16); Calcium 8.3 mg/dL (8.4-10.2); Carbon Dioxide 24 mmol/L (22-29); Chloride 110 mmol/L (96-108); Creatinine Clr Calc Pharmacy 78.2; Estimated Glomerular Filt Rate > 60; Glucose Random 74 mg/dL (60-115); Potassium 4.2 mmol/L (3.3-5.1); Sodium 143 mmol/L (135-145); Total Protein 5.7 g/dL (6.5-8.0)
[2022-01-18 07:38] VITALS: BP 113/65; PULSE 61; RESP 18; TEMP 36.1; O2SAT 94
[2022-01-18 08:00] VITALS: BP 133/67; PULSE 62; RESP 18; TEMP 36.1; O2SAT 95
--- NOTE | 2022-01-18 08:00 | P.PNGS_ITS ---
Subjective Subjective Date of Service: 01/18/22 Patient reports: no new complaints, feels better and tolerating a regular diet Interval history: The patient is initially seen without interpretive services and I explained that I will return later with interpretive services when her who is here so that her family's questions can be answered. She reports she is doing better than yesterday and having no nausea or vomiting. Her pain is well managed and she continues to have serosanguineous output in the EUSEBIO. There is no bilious material. Physical Exam Vital Signs: Vital Signs: Last Vital Signs Temp 97.0 F 01/18/22 07:38 Pulse 61 01/18/22 07:38 Resp 18 01/18/22 07:38 BP 113/65 01/18/22 07:38 Pulse Ox 94 01/18/22 07:38 O2 Del Method 01/18/22 07:38 O2 Flow Rate 2 01/17/22 11:31 Oxygen Flow Rate 2 01/17/22 10:08 BMI result Body Mass Index 31.6 The patient is nontoxic and anicteric Dressings are clean dry and intact Approximately 10-15 cc of predominantly serosanguineous drainage is noted with no evidence of bile in the EUSEBIO bulb Objective Data Active Medications Acetaminophen (Acetaminophen 325 Mg Tablet) 975 mg PO Q6H PRN PRN Reason: Pain, Mild (Pain Scale 1-3) Last Admin: 01/17/22 21:26 Dose: 650 mg Documented By: MINOO Comments: pt only wants 2 tylenol for DAMON Docusate Sodium (Docusate Sodium 100 Mg Capsule) 200 mg PO BID NURIA Last Admin: 01/17/22 20:10 Dose: 200 mg Documented By: MINOO Fentanyl (Fentanyl Citrate/Pf 100 Mcg/2 Ml Vial) 50 mcg IVPUSH Q5M PRN; Protocol PRN Reason: Pain, Severe (Pain Scale 7-10) Hydromorphone HCl (Hydromorphone Hcl 1 Mg/Ml Syringe) 0.5 mg IVPUSH Q4H PRN; Protocol PRN Reason: Pain, Severe (Pain Scale 7-10) Last Admin: 01/17/22 05:45 Dose: 0.5 mg Documented By: PARAG Hydromorphone HCl (Hydromorphone Hcl 0.5 Mg/0.5 Ml Syringe) 0.25 mg IVPUSH Q5M PRN; Protocol PRN Reason: Pain, Severe (Pain Scale 7-10) Hydromorphone HCl (Hydromorphone Hcl 0.5 Mg/0.5 Ml Syringe) 0.25 mg IVPUSH Q2H PRN; Protocol PRN Reason: Pain, Moderate (Pain Scale 4-6 Piperacillin Sod/Tazobactam (Sod 3.375 gm/ Sodium Chloride) 50 mls @ 100 mls/hr IV Q6H [facility] Last Infusion: 01/18/22 06:11 Dose: 0 mls/hr Documented By: MINOO Promethazine HCl 12.5 mg/ (Sodium Chloride) 50.5 mls @ 202 mls/hr IV ONCE PRN PRN Reason: Nausea and Vomiting Ondansetron HCl (Ondansetron Hcl 4 Mg/2 Ml Vial) 4 mg IVPUSH Q8H PRN PRN Reason: Nausea and Vomiting Oxycodone HCl (Oxycodone Hcl Immed Release 5 Mg Tablet) 5 mg PO Q4H PRN PRN Reason: Pain, Moderate (Pain Scale 4-6 Last Admin: 01/17/22 18:43 Dose: 5 mg Documented By: LYSManuela Sodium Chloride (0.9 % Sodium Chloride Flush 3 Ml Syringe) [facility] Last Admin: 01/17/22 20:11 Dose: Not Given Documented By: MINOO Non-Admin Reason: IV Running Labs CBC & Chem 7: 01/18/22 06:07 01/18/22 06:07 Labs: Laboratory Results - last 24 hr 01/18/22 01/18/22 06:07 06:07 MCV 89.7 MCH 28.8 MCHC 32.1 RDW 14.1 Plt Count 257 MPV 10.8 Immature Gran % (Auto) 0.3 Neut % (Auto) 51.9 Lymph % (Auto) 40.6 H [place] % (Auto) 5.7 Eos % (Auto) 1.1 Baso % (Auto) 0.4 Lymph # (Auto) 3.6 [place] # (Auto) 0.5 Eos # (Auto) 0.1 Baso # (Auto) 0.0 Abs Immat Gran (auto) 0.03 Absolute Neuts (auto) 4.6 Absolute Nucleated RBC 0.000 Nucleated RBC % (auto) 0.0 Anion Gap 13 Estim Creat Clear Calc 78.2 Estimated GFR > 60 Random Glucose 74 Calcium 8.3 L Total Bilirubin 0.4 AST 27 D ALT 44 H Alkaline Phosphatase 51 D Total Protein 5.7 L D Albumin 3.5 D Microbiology Microbiology Results: Microbiology 01/15/22 23:35 Blood Culture - Preliminary Blood - Venous No growth after 48 hours. 01/16/22 11:30 Gram Stain - Final Gallbladder Routine Culture - Preliminary No growth to date. 01/16/22 06:17 Blood Culture - Preliminary Blood - Venous No growth after 24 hours. Procedures Date of Service Date of Service: 01/18/22 Progress Note: A&P Assessment and plan (1) Acute cholecystitis: Status: Acute Plan Instructions regarding diet and activity have been officially reviewed by way of the dietitian. The patient is encouraged to stay on a low-fat diet for at least 2 weeks and I explained that she will have or may have diarrhea if she eats a rich, fatty meal. Her culture still have no growth, so she will not need antibiotics at discharge. I will return later today to remove the EUSEBIO drain and will reach out to Swapnil, the nurse to premedicate the patient and also obtained interpretive services. Discharge later this morning. Time Spent With Patient Time: Total time spent is greater than 50% in coordination of care (as documented) at patient's floor/unit and/or counseling patient: Quality Stroke Does the patient have a stroke diagnosis?: No VTE Prior VTE?: No VTE Risk Level:: Surgical - moderate VTE Device Contraindication: N/A - Device Ordered VTE Drug Contraindication: Treatment Not Indicated
[2022-01-18] MEDS: Docusate Sodium 100 MG CAPSULE 200 MG PO (08:14)
[2022-01-18] MEDS: HYDROmorphone HCl 1 MG/ML SYRINGE 0.5 MG IVPUSH (08:46)
--- NOTE | 2022-01-18 10:28 | PM.DS ---
DS: Providers Provider Date of Service: 01/18/22 Date of admission: 01/15/22 22:45 Primary care physician: Virgie Estrella MD Consults: 01/15/22 22:27 Consult to General Surgery Stat Consulting Provider: Mark Ponce Reason for consultation: Acute Cholecystitis Has provider been notified: Yes DS: Diagnosis Discharge Diagnosis (1) Acute cholecystitis: Status: Acute DS: Summary Hospital Course Hospital Course: See surgical H and P for full details. Briefly, this patient presented in early November with left flank pain and a left kidney stone and had anomalous findings on CT and ultrasound concerning for gallbladder malignancy. MRCP showed no evidence of malignancy and the patient was having no symptoms, consequently, she was discharged and was due for outpatient follow-up the week she presented with acute cholecystitis. Given her progressing pain, she was taken for an emergent laparoscopic cholecystectomy with drain placement. Her postoperative cultures were negative for any growth, her antibiotics were DC. She tolerated clear liquids immediately after surgery units man stool low-fat diet and provided low-fat diet Education. Her pain was better controlled, EUSEBIO drain removed and she was discharged home in improved condition. Time Spent with Patient Time attestation: Total time spent providing and/or coordinating discharge services: Discharge coordination time: Less than 30 minutes Quality: Safe Use of Opioids Does Pt have an Active Cancer Diagnosis on the Problem List?: No Quality: Stroke Does the patient have a stroke diagnosis?: No Physical Exam Vital Signs: Vital Signs: Last Vital Signs Temp 97.0 F 01/18/22 08:00 Pulse 62 01/18/22 08:00 Resp 18 01/18/22 08:00 BP 133/67 01/18/22 08:00 Pulse Ox 95 01/18/22 08:00 O2 Del Method 01/18/22 07:38 O2 Flow Rate 2 01/17/22 11:31 Oxygen Flow Rate 2 01/17/22 10:08 BMI result Body Mass Index 31.6 DS: Data Data Completed and Pending Pending studies at discharge: Pending at discharge 01/16/22 11:30 Surgical [PTH] Routine Labs on day of discharge: Laboratory Results - last 24 hr 01/18/22 01/18/22 06:07 06:07 WBC 8.9 RBC 3.79 L Hgb 10.9 L Hct 34.0 L MCV 89.7 MCH 28.8 MCHC 32.1 RDW 14.1 Plt Count 257 MPV 10.8 Immature Gran % (Auto) 0.3 Neut % (Auto) 51.9 Lymph % (Auto) 40.6 H [place] % (Auto) 5.7 Eos % (Auto) 1.1 Baso % (Auto) 0.4 Lymph # (Auto) 3.6 [place] # (Auto) 0.5 Eos # (Auto) 0.1 Baso # (Auto) 0.0 Abs Immat Gran (auto) 0.03 Absolute Neuts (auto) 4.6 Absolute Nucleated RBC 0.000 Nucleated RBC % (auto) 0.0 Sodium 143 Potassium 4.2 Chloride 110 H Carbon Dioxide 24 Anion Gap 13 BUN 16 Creatinine 0.80 Estim Creat Clear Calc 78.2 Estimated GFR > 60 Random Glucose 74 Calcium 8.3 L Total Bilirubin 0.4 AST 27 D ALT 44 H Alkaline Phosphatase 51 D Total Protein 5.7 L D Albumin 3.5 D Preliminary micro results at discharge 01/16/22 06:17 Blood Culture - Preliminary Blood - Venous No growth after 48 hours. 01/15/22 23:35 Blood Culture - Preliminary Blood - Venous No growth after 48 hours. Discharge Plan Discharge Anticipated Discharge Date/Time: 01/18/22 12:00 Patient Disposition: Home, Self-Care Discharge Diagnosis: gangrenous cholecystitis Referrals: Virgie Estrella MD [Primary Care Provider] - 1 Week Mark Ponce MD [Physician] - 1 Week Discharge Medications: New oxycodone 5 mg tablet 5 mg PO Q4H PRN (Reason: pain) Qty: 10 0RF Rx Instructions: Partial Fill upon patient request. oxycodone 5 mg tablet 5 mg PO Q4H PRN (Reason: pain) Qty: 14 0RF Rx Instructions: Partial Fill upon patient request. Continued pyridoxine (vitamin B6) 100 mg tablet 1 tab PO DAILY ascorbic acid (vitamin C) [Vitamin C] 500 mg Tablet 500 mg PO DAILY salmon oil-omega-3 fatty acids 1,000-210 mg Capsule 1 cap PO DAILY Discharge Orders: Discharge Order (Routine); Ordered 01/18/22 Ordered By: Mark Ponce Diet: Low-fat diet Activity on Discharge: No heavy lifting Stand Alone Forms: Patient Portal Discharge page Activity Restrictions/Additional Instructions: You had a laparoscopic cholecystectomy performed by Dr. Ponce. It is normal to experience some neck or shoulder pain from the gas used to inflate your abdomen. It is also normal to have pain or discomfort in your abdomen/belly as well as at the trocar sites (small incisions). This discomfort will resolve over the next 1-3 days, however, if it gets progressively worse, if you should develop worsening pain, nausea, vomiting and cannot keep liquids down, chest pain, difficulty breathing or shortness of breath, fevers over 100F please report to the nearest emergency department. You have a follow-up appointment with Dr. Ponce for 01/24/22 at 11:45am. Unless otherwise directed by Dr. Ponce, you should resume taking your regular medications. As Dr. Ponce reviewed in the office, you must not lift more than 20 lb for the next 4 weeks. Strenuous activities can tear out your sutures and cause an incisional hernia that would require another operation. Activities to be avoided include: sports, running, bicycling, yoga, lifting more than 20 lb, digging, gardening, splitting/carrying wood, swimming, hiking uphill, and other activities. If you have questions regarding this specific activity, please check with Dr. Ponce. If your incisions become red, swollen, tender or draining pus, please contact Dr. Ponce or go to the nearest emergency department. OK to shower elaine, 01/18. Remove the Band-Aids, but leave the butterfly taps on your incisions. Expect blood to drain out of the right lowest incision on the right side of your abdomen for 1-2 days. Apply a Band-Aid and change 1-2 times a day or as needed. Do not soak in a tub or swimming pool until your incisions have completely sealed, usually 2 or more weeks. After the dressings are removed in 48 hours, you will notice paper tapes called butterflies/Steri-Strips. These tapes will fall off on their own in 1-2 weeks. You do not need to apply another bandage unless your clothing irritates your incisions. If you need to place another Band-Aid on your incisions, be sure to wait until the Steri strip is dry. You have been prescribed narcotic pain medicine that will cause constipation. Please purchase mebq-bey-thjcrgr stool softener known as Colace/docusate, 100 mg. Take 2 tablets with breakfast and the morning and 2 tablets in the evening after dinner until your bowels are moving and urine or longer taking narcotics. Please note that if you are not taking narcotics, the general anesthesia for the procedure can still cause constipation. If you experience diarrhea, stop taking the stool softener medicine. You can take ejhy-ear-nigzgbz Tylenol/acetaminophen with nnsg-ijq-iwvcmhj ibuprofen or naproxen for pain unless you have an allergy or medical reason you are not not allowed to take these medications, such as peptic ulcers, taking blood thinners or kidney problems. You should also use ice packs to the operative site to help minimize pain and swelling for the first 3 days, or as needed afterwards. Unless there is a medical reason to avoid these medicines, you should take 2 qklf-fuc-srzzmqe Tylenol with two (2) hjpt-hyv-yhxzhhg ibuprofen together, every 6 hours for the first 3 days to help with pain. Remember that the gallbladder helps to to digest fatty foods. If you eat fried foods; rich, creamy sauces; cheese; gravies or other such heavy, greasy foods, you will likely develop gas and bloating and diarrhea. To minimize this risk, eat a high protein, high-fiber, low-fat diet for the next few weeks. Care Plan Goals: post-op healing Health Concerns: Allow healing Plan of Treatment: Light duty & low fat diet Assessment: Acute gangrenous cholecystitis, s/p rosario maria m
--- NOTE | 2022-01-18 12:20 | MHC.CM.PN ---
PATIENT IS DC HOME - SELF CARE RN AWARE OF PLAN
== END 2022-01-18 12:16 | disposition home or self-care (01) | DRG 263 ==
LOC: HO.ED 20:03 → HO.EDOVER 22:54 → HO.S3 01-16 12:55
PROVIDERS: Admitting Provider Surgery; Emergency Provider Student in an Organized Health Care Education/Training Program; PCP Internal Medicine; Visit Provider Surgery
PROC: 0FT44ZZ Resection of Gallbladder, Percutaneous Endoscopic Approach (ICD-10-PCS; CPT 47562; principal; 2022-01-16 10:00)
DX: K80.00 Calculus of gallbladder with acute cholecystitis without obstruction (principal); K82.A1 Gangrene of gallbladder in cholecystitis; K42.9 Umbilical hernia without obstruction or gangrene; Z20.822 Contact with and (suspected) exposure to COVID-19; Z87.442 Personal history of urinary calculi; Z79.899 Other long term (current) drug therapy
CPT/HCPCS: 36415; 76705; 80053; 81003; 83605; 83690; 85025; 87040; 87070; 87205; 87635; 88304; 99285; J1100; J1170; J1885; J2250; J2405; J2543; J2795; J3010

== ENCOUNTER 2022-03-01 14:01 | Outpatient (REF) | payer OTHER, SELFPAY | END 2022-03-01 14:02 | disposition home or self-care (01) | LOC: HO.LNP 14:01 | PROVIDERS: PCP Internal Medicine; Visit Provider Obstetrics & Gynecology | DX: N90.89 Other specified noninflammatory disorders of vulva and perineum (principal) | CPT/HCPCS: 56605; 56606; 88305; 88312 ==

== ENCOUNTER 2022-03-04 14:58 | Outpatient (REF) | payer OTHER, SELFPAY ==
--- NOTE | ~2022-03-04 | US_ITS ---
EXAMINATION: US RETROPERITONEAL LIMITED (RENAL ONLY) CLINICAL INFORMATION: Calculus of kidney. COMPARISON: Ultrasound abdomen limited 01/15/2022 CT abdomen and pelvis 12/04/2021. TECHNIQUE: Real-time imaging of the kidneys. FINDINGS: RIGHT KIDNEY: 12.0 x 4.1 x 4.9 cm (SAG x AP x TRV). The kidney is normal in size, contour, and echogenicity. Renal cortical thickness is normal. No hydronephrosis. Multiple benign appearing peripelvic and renal cysts no imaging follow-up recommended. 3 mm nonobstructing right midpole renal stone and 3 mm nonobstructing lower pole renal stone similar to prior CT. A larger previously seen midpole renal stone was not identified. LEFT KIDNEY: 10.4 x 4.6 x 5.4 cm (SAG x AP x TRV). The kidney is normal in size, contour, and echogenicity. Renal cortical thickness is normal. No hydronephrosis. Multiple benign-appearing peripelvic renal cysts, no follow-up imaging recommended. A 1.1 cm coarse calcification in the left upper pole which appears to correspond to a coarse mural calcification associated a cyst on prior CT. Few additional tiny echogenic foci in the left kidney without shadowing or twinkle artifact favored to reflect vascular reflector's rather than stones. US/US renal BI IMPRESSION: No hydronephrosis. Several nonobstructing right renal stones measuring up to 3 mm. Few additional tiny echogenic foci in the left kidney without shadowing or twinkle artifact favored to reflect vascular rather than stones. A 1.1 cm coarse calcification in the left upper pole which appears to correspond to a coarse mural calcification associated a cyst on prior CT.
== END 2022-03-04 14:59 | disposition home or self-care (01) ==
LOC: HO.US 14:58
PROVIDERS: PCP Internal Medicine
DX: N20.0 Calculus of kidney (principal)
CPT/HCPCS: 76775

== ENCOUNTER → 2022-03-30 14:22 | Outpatient (BNVA) | payer OTHER, SELFPAY | PROVIDERS: PCP Internal Medicine; Visit Provider Nurse Practitioner Family | DX: N20.0 Calculus of kidney (principal) | CPT/HCPCS: 99212 ==

== ENCOUNTER → 2022-04-13 14:19 | Outpatient (BNVA) | payer OTHER, SELFPAY | PROVIDERS: PCP Internal Medicine; Visit Provider Obstetrics & Gynecology | DX: L28.0 Lichen simplex chronicus (principal); Z98.890 Other specified postprocedural states | CPT/HCPCS: 99212 ==

== ENCOUNTER → 2022-06-21 15:05 | Outpatient (BNVA) | payer OTHER, SELFPAY | PROVIDERS: PCP Internal Medicine; Visit Provider Obstetrics & Gynecology | DX: L28.0 Lichen simplex chronicus (principal) | CPT/HCPCS: 99212 ==

== ENCOUNTER 2022-09-19 13:16 | Outpatient (REF) | payer OTHER, SELFPAY ==
--- NOTE | ~2022-09-19 | US_ITS ---
EXAMINATION: US RETROPERITONEAL LIMITED (RENAL ONLY) CLINICAL INFORMATION: Calculus of kidney. COMPARISON: Ultrasound retroperitoneal limited (renal only) 03/04/2022. MR abdomen without and with contrast 12/05/2021. CT abdomen and pelvis without contrast 12/04/2021. Ultrasound retroperitoneal limited (renal only) 12/04/2021. TECHNIQUE: Real-time imaging of the kidneys. FINDINGS: RIGHT KIDNEY: 9.8 x 6.0 x 5.8 cm (SAG x AP x TRV). The kidney is normal in size, contour, and echogenicity. Renal cortical thickness is normal. No hydronephrosis. Benign-appearing renal cysts measuring up to 2.5 cm. No follow-up imaging is recommended. Several nonobstructing right renal stones measuring up to 3 mm similar to prior. LEFT KIDNEY: 10.7 x 5.0 x 5.8 cm (SAG x AP x TRV). The kidney is normal in size, contour, and echogenicity. Renal cortical thickness is normal. No renal calculi or hydronephrosis. Benign-appearing renal cysts and likely benign renal cysts measuring up to 2.1 Cm. No follow-up imaging recommended. US/US renal BI IMPRESSION: Several nonobstructing right renal stones measuring up to 3 mm similar to prior.
== END 2022-09-19 13:17 | disposition home or self-care (01) ==
LOC: HO.US 13:16
PROVIDERS: Visit Provider Nurse Practitioner Family
DX: N20.0 Calculus of kidney (principal)
CPT/HCPCS: 76775

== ENCOUNTER 2022-10-03 13:06 | Outpatient (REF) | payer OTHER, SELFPAY ==
[2022-10-10 17:08] LABS: Stone Source KIDNEY STONE
== END 2022-10-03 13:07 | disposition home or self-care (01) ==
LOC: HO.LNP 13:06
PROVIDERS: Visit Provider Nurse Practitioner Family
DX: N20.0 Calculus of kidney (principal); N28.1 Cyst of kidney, acquired
CPT/HCPCS: 82365; 88300; 99212

== ENCOUNTER 2022-10-03 13:06 | Outpatient (AMB) | payer OTHER, SELFPAY ==
--- NOTE | 2022-10-03 13:25 | MHC.OFFVIS ---
Intake Intake Visit Reasons: 6m follow up/US(set) Intake Note: Patient presents for follow up ultrasound/kidney stones (imaging 09/19) Urology Medications: Vitamin B6 blood thinners: none Chief Physical Therapist Required: Yes Chief Physical Therapist Name: Nikki Accompanied by: Self / Same As Patient Allergies No Known Allergies Allergy (Verified 10/03/22 23:24) Medication List - Last Reconciled 10/03/22 by GENEVA Jaramillo ascorbic acid (vitamin C) (Vitamin C) 500 mg PO DAILY pyridoxine (vitamin B6) 50 mg (1/2 x 100 mg) PO DAILY 90 days salmon oil-omega-3 fatty acids 1,000-210 mg 1 cap PO DAILY triamcinolone acetonide 0.1% 1 appl topical BID 4 weeks HPI HPI Comments History of Present Illness Details Serina is a a pleasant Indonesian speaking 57-year-old female patient of Dr. Estrella. Patient presents to the office today for follow-up regarding her nephrolithiasis. When asked patient reports to be doing well. She denies any urinary issues and or concerns at this time. Recent renal imaging reviewed with the patient today. Right kidney with no hydronephrosis. Benign-appearing renal cysts measuring up to 2.5 cm with no follow-up imaging recommended per radiology report. Several nonobstructing right renal stones measuring up to 3 mm similar to prior study. Left kidney with no calculi or hydronephrosis. Benign-appearing renal cyst measuring up to 2.1 cm with no follow-up imaging recommended per radiology report. In discussion with the patient today she reports she continues with increased sodium intake and decreased water consumption. Discussed further nephrolithiasis workup with labs and 24 hour urine collection however patient wishes to continue with surveillance imaging monitoring. Discussed at length importance of drinking plenty of water daily. She denies urinary urgency, urinary frequency, incontinence, nocturia, hematuria, dysuria, foul smelling urine, changes to urinary stream, flank pain, fever, and or chills. She is happy with her current voiding parameters. In office urinalysis results reviewed with the patient today. When asked she reports compliance with vitamin B6 daily. She otherwise offers no issues or concerns at this time. [facility] Medical History Family history of GI tract cancer Kidney stones Family History Paternal Uncle Lung cancer Father Esophageal cancer Brother Stomach cancer Social History Household Members: Family Housing: House Do you presently have visiting nurse or other home services: No Alcohol intake: former Patient Tobacco Use Status: Never used Tobacco service: No Current occupational status: employed Female Reproductive History Menstrual Age of Menarche: 12 Review of Systems Const Reports as per HPI Eyes Reports no additional complaints ENT Reports no additional complaints Card Reports no additional complaints Resp Reports no additional complaints GI Reports no additional complaints Reports as per HPI Musc Reports no additional complaints Neuro Reports no additional complaints Psych Reports no additional complaints Endo Reports no additional complaints Enrico/Lymph Reports no additional complaints Aller/Immun Reports no additional complaints Physical Exam Const General: cooperative, healthy appearing, comfortable, no acute distress, well developed, alert and awake Orientation/consciousness: patient oriented x3 Limitations: no limitations HEENT Head: Yes normal to inspection, Yes normocephalic and Yes atraumatic Ears: hearing grossly normal bilaterally Eyes General: appearance normal, both eyes and all related structures Neck Neck: Yes normal visual inspection and Yes trachea midline Chest Chest palpation & inspection: normal inspection of the chest Resp Effort & Inspection: normal respiratory effort and able to speak in complete sentences Cardio Rate: regular rate GI Inspection: Yes normal to inspection General: Yes no CVA tenderness Back/Spine/Pelvis Back: no CVA tenderness Skin General skin exam: no rashes or lesions noted Neuro General: patient oriented x3 Extrem General: Yes normal to inspection Psych Appearance: grossly normal and well kempt Mental Status: mental status grossly normal Speech and movement: Normal speech and movement present and Clear speech present Affect: normal affect Attitude: cooperative Thought process: Normal thought process present Thought content: Normal thought content present Insight: Fair insight present (Psych) Judgement: Fair judgement present (Psych) Results AMB Urinalysis, Automated UA Leukoctes 0 Candelario/uL Last Edit by Irlanda Jensen on 10/03/22 13:41 UA Nitrite Last Edit by Irlanda Jensen on 10/03/22 13:41 UA Urobilinogen 0.2 mg/dL Last Edit by Irlanda Jensen on 10/03/22 13:41 UA Protein 0 mg/dL Last Edit by Irlanda Jensen on 10/03/22 13:41 UA pH 6.0 Last Edit by Irlanda Jensen on 10/03/22 13:41 UA Blood 0 Rizwan/uL Last Edit by Irlanda Jensen on 10/03/22 13:41 UA Specific [place] 1.025 Last Edit by Irlanda Jensen on 10/03/22 13:41 UA Ketone Last Edit by Irlanda Jensen on 10/03/22 13:41 UA Bilirubin 0 mg/dL Last Edit by Irlanda Jensen on 10/03/22 13:41 UA Glucose 0 mg/dL Last Edit by Irlanda Jensen on 10/03/22 13:41 Results Reviewed Results Reviewed: Laboratory Last Values Urine pH (Auto) 6.0 10/03/22 13:27 Specific [place] (Auto) 1.025 10/03/22 13:27 Urine Protein (Auto) 0 mg/dL 10/03/22 13:27 Glucose (UA)(Auto) 0 mg/dL 10/03/22 13:27 Urine Blood (Auto) 0 Rizwan/uL 10/03/22 13:27 Urine Bilirubin (Auto) 0 mg/dL 10/03/22 13:27 Urine Urobilinogen (Auto) 0.2 mg/dL 10/03/22 13:27 Leukocyte Esterase (Auto) 0 Candelario/uL 10/03/22 13:27 Date of Service: 09/19/22 Procedure(s): US renal BI EXAMINATION: US RETROPERITONEAL LIMITED (RENAL ONLY) FINDINGS: RIGHT KIDNEY: 9.8 x 6.0 x 5.8 cm (SAG x AP x TRV). The kidney is normal in size, contour, and echogenicity. Renal cortical thickness is normal. No hydronephrosis. Benign-appearing renal cysts measuring up to 2.5 cm. No follow-up imaging is recommended. Several nonobstructing right renal stones measuring up to 3 mm similar to prior. LEFT KIDNEY: 10.7 x 5.0 x 5.8 cm (SAG x AP x TRV). The kidney is normal in size, contour, and echogenicity. Renal cortical thickness is normal. No renal calculi or hydronephrosis. Benign-appearing renal cysts and likely benign renal cysts measuring up to 2.1 Cm. No follow-up imaging recommended. IMPRESSION: Several nonobstructing right renal stones measuring up to 3 mm similar to prior. Assessment & Plan Assessment & Plan (1) Kidney stones: Code(s): N20.0 - Calculus of kidney (2) Renal cyst: Code(s): N28.1 - Cyst of kidney, acquired Plan In office urinalysis results reviewed with the patient today; as noted above. Recent renal imaging results reviewed with the patient today; as noted above. Discussed at length and stressed the importance of drinking plenty of water daily. Discussed further nephrolithiasis workup with 24 hour urine collection and labs however patient would like to continue with surveillance imaging monitoring. Patient denies any bothersome urinary issues at this time. Patient reports to be happy with current voiding parameters. Continue vitamin B6 as discussed and prescribed. Discussed adding 1 oz of lemon juice to water daily. Renal ultrasound in 6 months. Follow-up in 6 months with imaging to be completed prior; or sooner with any issues, concerns, and or questions. Orders: Orders US renal BI 6 Months N20.0 - Calculus of kidney AMB Urinalysis Automated Today Z13.9 - Encounter for screening, unspecified Surgical Today N20.0 - Calculus of kidney Medications: New pyridoxine (vitamin B6) 50 mg (1/2 x 100 mg) PO DAILY 45 tabs 1RF 90 days Discontinued pyridoxine (vitamin B6) Discontinued Reason: Doctor's Order 100 mg PO DAILY 90 days 90 tabs 1RF Patient Instructions: The patient had an opportunity to ask questions regarding the treatment plan. All questions were answered. Physical exam, labs, and imaging were discussed and reviewed in detail. As well as risks, benefits, and discussion of treatment choices. No major barriers to understanding were identified. The patient expressed understanding and agreement with the above treatment plan. The patient was made aware they should contact our office by phone for worsening of their current condition, the appearance of new symptoms, or with any questions or concerns. Compliance is encouraged with any medications and follow up testing that is ordered. It is a privilege to be allowed the opportunity to participate in? your urological care.? Again, if you have any questions or concerns If you have any questions or concerns please do not hesitate to contact me. The office is [phone]. This note is constructed using voice recognition software. While every effort has been made to ensure accuracy evaporator repairer errors may have been included. Yours sincerely, LON Jaramillo-BC Coding Level of Care Code Est Pt Level 3 (86725) Diagnoses Kidney stones N20.0 Renal cyst N28.1
== END 2022-10-03 14:13 | disposition home or self-care (01) ==
PROVIDERS: Visit Provider Nurse Practitioner Family
DX: N20.0 Calculus of kidney (principal); N28.1 Cyst of kidney, acquired
CPT/HCPCS: 99213

== ENCOUNTER 2023-03-27 13:51 | Outpatient (REF) | payer OTHER, SELFPAY ==
--- NOTE | ~2023-03-27 | US_ITS ---
EXAMINATION: US RETROPERITONEAL LIMITED (RENAL ONLY) CLINICAL INFORMATION: Calculus of kidney. COMPARISON: Renal ultrasound 09/19/2022 and 03/04/2022. MR abdomen without and with contrast 12/05/2021. CT abdomen and pelvis without contrast 12/04/2021. TECHNIQUE: Real-time imaging of the kidneys. Limited visualization due to bowel gas. FINDINGS: RIGHT KIDNEY: 11.6 x 5.8 x 5.6 cm (SAG x AP x TRV). . Multiple renal cysts with benign features measuring up to 2.7 cm upper pole redemonstrated. Limited visualization. No calculi, largest midpole 6 mm. Mildly dilated renal pyramids.Multiple anechoic areas in the parapelvic region likely represent parapelvic cysts, but difficult to fully characterize due to limited visualization. LEFT KIDNEY: 10.6 x 5.5 x 5.5 cm (SAG x AP x TRV). Upper pole 1.7 x 1.1 x 2.1 cm cyst. Adjacent 0.7 x 0.7 x 0.7 cm echogenic focus characteristic of calcification. Previous exam demonstrated upper pole 2.1 x 1.7 x 1.5 cm cyst with 1.8 x 1.5 x 2.1 cm mural calcification. Multiple cysts of various sizes including parapelvic cysts. Limited visualization. Dilated renal pyramids and calyces. US/US renal BI IMPRESSION: Redemonstration of right renal calculi measuring up to 7 mm. Mild bilateral caliectasis difficult to distinguish from parapelvic cysts. Left renal upper pole 1.7 cm cyst with adjacent calcification, similar.
== END 2023-03-27 13:52 | disposition home or self-care (01) ==
LOC: HO.HMGCX 13:51
PROVIDERS: PCP Internal Medicine; Visit Provider Nurse Practitioner Family
DX: N20.0 Calculus of kidney (principal)
CPT/HCPCS: 76775

== ENCOUNTER 2023-04-04 13:54 | Outpatient (AMB) | payer OTHER, SELFPAY ==
--- NOTE | 2023-04-04 14:21 | A.OFFVIS_ITS ---
Intake Intake Visit Reasons: 6m/US(set) Intake Note: Patient presents for follow up kidney stone and ultrasound results Imagin03/27/23 Urology Medications: Vitamin B6 Blood Thinner: none Vice Investigator Required: Yes Accompanied by: Self / Same As Patient Allergies No Known Allergies Allergy (Verified 04/04/23 14:47) Medication List - Last Reconciled 04/04/23 by LON Jaramillo-NORMA ascorbic acid (vitamin C) (Vitamin C) 500 mg PO DAILY pyridoxine (vitamin B6) 50 mg (1/2 x 100 mg) PO DAILY 90 days salmon oil-omega-3 fatty acids 1,000-210 mg 1 cap PO DAILY triamcinolone acetonide 0.1% 1 appl topical BID 4 weeks HPI HPI Comments History of Present Illness Details Serina is a a pleasant Persian speaking 58-year-old female patient of Dr. Estrella. Patient presents to the office today for follow-up regarding her nephrolithiasis. When asked patient reports to be doing well. She denies any urinary issues and or concerns at this time. Recent renal imaging reviewed with the patient today. Right kidney with multiple renal cyst with benign features up to 2.7 cm upper pole redemonstrated. Largest mid pole calculi 6 mm. Left kidney with multiple cysts of various sizes including peripelvic cysts. In discussion with the patient today she reports she continues with increased sodium intake and decreased water consumption. Discussed further nephrolithiasis workup with labs and 24 hour urine collection however patient wishes to continue with surveillance imaging monitoring. Discussed at length importance of drinking plenty of water daily. She denies urinary urgency, urinary frequency, incontinence, nocturia, hematuria, dysuria, foul smelling urine, changes to urinary stream, flank pain, fever, and or chills. She is happy with her current voiding parameters. In office urinalysis results reviewed with the patient today. When asked she reports compliance with vitamin B6 daily. She otherwise offers no issues or concerns at this time. [facility] Medical History Family history of GI tract cancer Kidney stones Family History Paternal Uncle Lung cancer Father Esophageal cancer Brother Stomach cancer Social History Household Members: Family Housing: House Do you presently have visiting nurse or other home services: No Alcohol intake: former Patient Tobacco Use Status: Never used Tobacco service: No Current occupational status: employed Female Reproductive History Menstrual Age of Menarche: 12 Review of Systems Const Reports as per HPI Eyes Reports no additional complaints ENT Reports no additional complaints Card Reports no additional complaints Resp Reports no additional complaints GI Reports no additional complaints Reports as per HPI Musc Reports no additional complaints Neuro Reports no additional complaints Psych Reports no additional complaints Endo Reports no additional complaints Enrico/Lymph Reports no additional complaints Aller/Immun Reports no additional complaints Physical Exam Const General: cooperative, healthy appearing, comfortable, no acute distress, well developed, alert and awake Orientation/consciousness: patient oriented x3 Limitations: no limitations HEENT Head: Yes normal to inspection, Yes normocephalic and Yes atraumatic Ears: hearing grossly normal bilaterally Eyes General: appearance normal, both eyes and all related structures Neck Neck: Yes normal visual inspection and Yes trachea midline Chest Chest palpation & inspection: normal inspection of the chest Resp Effort & Inspection: normal respiratory effort and able to speak in complete sentences Cardio Rate: regular rate GI Inspection: Yes normal to inspection General: Yes no CVA tenderness Back/Spine/Pelvis Back: no CVA tenderness Skin General skin exam: no rashes or lesions noted Neuro General: patient oriented x3 Extrem General: Yes normal to inspection Psych Appearance: grossly normal and well kempt Mental Status: mental status grossly normal Speech and movement: Normal speech and movement present and Clear speech present Affect: normal affect Attitude: cooperative Thought process: Normal thought process present Thought content: Normal thought content present Insight: Fair insight present (Psych) Judgement: Fair judgement present (Psych) Results AMB Urinalysis, Automated UA Leukoctes 0 Candelario/uL Last Edit by Kendy English CMA on 04/04/23 14 :24 UA Nitrite Negative Last Edit by Kendy English CMA on 04/04/23 14: 24 UA Urobilinogen 0.2 mg/dL Last Edit by Kendy English CMA on 4 14:24 UA Protein 0 mg/dL Last Edit by Kendy English CMA on 04/04/23 14:24 UA pH 6.0 Last Edit by Kendy English CMA on 04/04/23 14:24 UA Blood 0 Rizwan/uL Last Edit by [facility], [facility] on 04/04/23 14:24 UA Specific [place] 1.030 Last Edit by [facility], [facility] on 14:24 UA Ketone Negative Last Edit by [facility], [facility] on 04/04/23 14:2 4 UA Bilirubin 0 mg/dL Last Edit by [facility], [facility] on 04/04/23 14: 24 UA Glucose 0 mg/dL Last Edit by [facility], [facility] on 04/04/23 14:24 Results Reviewed Results Reviewed: Laboratory Last Values Urine pH (Auto) 6.0 04/04/23 14:23 Specific [place] (Auto) 1.030 04/04/23 14:23 Urine Protein (Auto) 0 mg/dL 04/04/23 14:23 Glucose (UA)(Auto) 0 mg/dL 04/04/23 14:23 Urine Ketones (Auto) Negative 04/04/23 14:23 Urine Blood (Auto) 0 Rizwan/uL 04/04/23 14:23 Urine Nitrite (Auto) Negative 04/04/23 14:23 Urine Bilirubin (Auto) 0 mg/dL 04/04/23 14:23 Urine Urobilinogen (Auto) 0.2 mg/dL 04/04/23 14:23 Leukocyte Esterase (Auto) 0 Candelario/uL 04/04/23 14:23 Date of Service: 03/27/23 EXAMINATION: US RETROPERITONEAL LIMITED (RENAL ONLY) FINDINGS: RIGHT KIDNEY: 11.6 x 5.8 x 5.6 cm (SAG x AP x TRV). . Multiple renal cysts with benign features measuring up to 2.7 cm upper pole redemonstrated. Limited visualization. No calculi, largest midpole 6 mm. Mildly dilated renal pyramids.Multiple anechoic areas in the parapelvic region likely represent parapelvic cysts, but difficult to fully characterize due to limited visualization. LEFT KIDNEY: 10.6 x 5.5 x 5.5 cm (SAG x AP x TRV). Upper pole 1.7 x 1.1 x 2.1 cm cyst. Adjacent 0.7 x 0.7 x 0.7 cm echogenic focus characteristic of calcification. Previous exam demonstrated upper pole 2.1 x 1.7 x 1.5 cm cyst with 1.8 x 1.5 x 2.1 cm mural calcification. Multiple cysts of various sizes including parapelvic cysts. Limited visualization. Dilated renal pyramids and calyces. IMPRESSION: Redemonstration of right renal calculi measuring up to 7 mm. Mild bilateral caliectasis difficult to distinguish from parapelvic cysts. Left renal upper pole 1.7 cm cyst with adjacent calcification, similar. Assessment & Plan Assessment & Plan (1) Multiple renal calculi: Code(s): N20.0 - Calculus of kidney (2) Renal cyst: Code(s): N28.1 - Cyst of kidney, acquired Plan In office urinalysis results reviewed with the patient today; as noted above. Recent renal imaging results reviewed with the patient today; as noted above. Discussed at length surveillance monitoring verses CT KUB for further assessment evaluation. Patient currently denies any bothersome urinary issues or concerns. Will continue with surveillance monitoring. Discussed increase in stone size within the last 6 months and importance of hydration. Discussed, educated, and stressed the importance of drinking plenty of water daily. Continue adding 1 oz of lemon juice to water daily. Continue vitamin B6 as discussed and prescribed. Will obtain CT KUB in 3 months. Follow-up in 3 months with imaging to be completed prior; or sooner with any issues, concerns, and or questions. Orders: Orders AMB Urinalysis Automated Today R33.9 - Retention of urine, unspecified CT kidney stone 3 Months N20.0 - Calculus of kidney Patient Instructions: The patient had an opportunity to ask questions regarding the treatment plan. All questions were answered. Physical exam, labs, and imaging were discussed and reviewed in detail. As well as risks, benefits, and discussion of treatment choices. No major barriers to understanding were identified. The patient expressed understanding and agreement with the above treatment plan. The patient was made aware they should contact our office by phone for worsening of their current condition, the appearance of new symptoms, or with any questions or concerns. Compliance is encouraged with any medications and follow up testing that is ordered. It is a privilege to be allowed the opportunity to participate in? your urological care.? Again, if you have any questions or concerns If you have any questions or concerns please do not hesitate to contact me. The office is [phone]. This note is constructed using voice recognition software. While every effort has been made to ensure accuracy guidance director errors may have been included. Yours sincerely, GENEVA Jaramillo Coding Level of Care Code Est Pt Level 3 (61282) Diagnoses Multiple renal calculi N20.0 Renal cyst N28.1
== END 2023-04-04 14:46 | disposition home or self-care (01) ==
PROVIDERS: PCP Internal Medicine; Visit Provider Nurse Practitioner Family
DX: N20.0 Calculus of kidney (principal); N28.1 Cyst of kidney, acquired
CPT/HCPCS: 99213

== ENCOUNTER → 2023-04-04 13:54 | Outpatient (BNVA) | payer OTHER, SELFPAY | PROVIDERS: PCP Internal Medicine; Visit Provider Nurse Practitioner Family | DX: N20.0 Calculus of kidney (principal); N28.1 Cyst of kidney, acquired | CPT/HCPCS: 81003; 99212 ==

== ENCOUNTER 2023-06-28 14:36 | Outpatient (REF) | payer OTHER, SELFPAY ==
--- NOTE | ~2023-06-28 | CT_ITS ---
STUDY PERFORMED: CT ABDOMEN AND PELVIS WITHOUT CONTRAST HISTORY: Calculus of kidney. DESCRIPTION: Routine abdomen and pelvis CT protocol without contrast was performed. Coronal and sagittal reformatted images. DOSE LOWERING TECHNIQUES: This CT examination was performed using dose optimization techniques as appropriate, variously including the following: - Automated exposure control - Adjustment of mA and/or kV according to patient size (this includes techniques or standardized protocols for targeted exams where dose is matched to indication/reason for exam; i.e. extremities or head) - Use of iterative reconstruction technique DOSE LENGTH PRODUCT: 568.29 mGy-cm COMPARISON: Renal ultrasound 03/27/2023, CT abdomen and pelvis 12/04/2021. FINDINGS: Lung Bases: No suspicious lung nodules. Liver, Gallbladder and Biliary Tree: The liver is normal in size, shape, and attenuation. No focal hepatic lesion or biliary ductal dilatation is present. Cholecystectomy. Pancreas: No discrete pancreatic mass. No pancreatic ductal dilatation. Spleen: Unremarkable. Adrenal Glands: No adrenal mass. Kidneys and Ureters: 2 mm nonobstructing calculus upper left kidney 7.9 cm from posterolateral skin surface. Punctate nonobstructing calculus upper left kidney 7.0 cm from posterolateral skin surface. 2 mm nonobstructing calculus in the lower left kidney 7.9 cm from posterolateral skin surface. Calyceal diverticulum in the posterolateral left upper kidney with layering calculi. 3 mm nonobstructing calculus posterior mid right kidney 7.4 cm from posterolateral skin surface. Punctate nonobstructing calculus lower right kidney 10.9 cm from posterolateral skin surface. Multiple simple parapelvic cysts are seen bilaterally. Simple density cyst in the lower pole right kidney with thin mural calcification (Bosniak 2). No significant change compared to prior. No follow-up imaging is recommended for these cysts. No demonstrable hydronephrosis. No demonstrable ureterolithiasis. Bladder: No bladder calculus. Gastrointestinal Tract: Unchanged dominga mesentery. No bulky mesenteric adenopathy. The small and large bowel are normal in caliber. An appendicolith is seen within the appendix. No evidence of appendicitis. Abdominal Wall: Small fat-containing umbilical hernia. Lymph Nodes: No lymphadenopathy. Vascular: No aortic aneurysm. Pelvic Viscera: Questionable thickening of the endometrium measuring 1.4 cm. Osseous Structures: Degenerative changes in the spine. CT/CT kidney stone IMPRESSION: Bilateral nonobstructing renal calculi as measured above. No hydronephrosis. Questionable thickening of the endometrium difficult to evaluate on noncontrast CT. This would need to be correlated with the patient's menstrual status. If the patient is postmenopausal, recommend follow-up pelvic ultrasound for further evaluation.
== END 2023-06-28 14:37 | disposition home or self-care (01) ==
LOC: HO.CT 14:36
PROVIDERS: PCP Internal Medicine; Visit Provider Nurse Practitioner Family
DX: N20.0 Calculus of kidney (principal)
CPT/HCPCS: 74176

== ENCOUNTER 2023-07-03 13:54 | Outpatient (AMB) | payer OTHER, SELFPAY ==
--- NOTE | 2023-07-03 14:36 | MHC.OFFVIS ---
Intake Visit Reasons: 3m/CT KUB(set) Intake Note: Patient presents for follow up kidney stone and CT Scan Imagin06/28/23 Urology Medications: Vitamin B6 Blood Thinner: none Assistant Food Service Manager Required: No Accompanied by: Self / Same As Patient Allergies No Known Allergies Allergy (Verified 07/03/23 19:31) Medication List - Last Reconciled 07/03/23 by GENEVA Jaramillo ascorbic acid (vitamin C) (Vitamin C) 500 mg PO DAILY pyridoxine (vitamin B6) 50 mg PO DAILY 90 days salmon oil-omega-3 fatty acids 1,000-210 mg 1 cap PO DAILY triamcinolone acetonide 0.1% 1 appl topical BID 4 weeks HPI Comments Details: Serina is a a pleasant Slovenian speaking 58-year-old female patient of Dr. Estrella. Patient presents to the office today for follow-up regarding her nephrolithiasis. When asked patient reports to be doing well. She denies any urinary issues and or concerns at this time. Recent renal imaging reviewed with the patient today. Bilateral multiple nonobstructing calculi. Left renal calculi measuring from punctate to 2 mm. Right kidney with 3 mm nonobstructing stone and punctate stones. No hydronephrosis noted bilaterally. Multiple simple peripelvic cysts are seen bilaterally. Simple density cyst in the lower pole of the right kidney wit thin mural calcifications classified as a Bosniak 2. No significant change when compared to prior studies. No imaging is recommended for the cysts per radiology report. In discussion with the patient today she reports she continues with increased sodium intake and decreased water consumption in therefore does not feel she wants to undergo metabolic workup as she feels she knows which she needs to do however feels this is difficult for her. Discussed surveillance imaging. She otherwise denies urinary urgency, urinary frequency, incontinence, nocturia, hematuria, dysuria, foul smelling urine, changes to urinary stream, flank pain, fever, and or chills. She is happy with her current voiding parameters. In office urinalysis results reviewed with the patient today. When asked she reports compliance with vitamin B6 daily. Discussed at length importance of drinking plenty of water daily. She otherwise offers no issues or concerns at this time. [facility] Medical History Family history of GI tract cancer Kidney stones Family History Paternal Uncle Lung cancer Father Esophageal cancer Brother Stomach cancer Social History Household Members: Family Housing: House Do you presently have visiting nurse or other home services: No Alcohol intake: former Patient Tobacco Use Status: Never used Tobacco service: No Current occupational status: employed Female Reproductive History Menstrual Age of Menarche: 12 Review of Systems Const Reports as per HPI Eyes Reports no additional complaints ENT Reports no additional complaints Card Reports no additional complaints Resp Reports no additional complaints GI Reports no additional complaints Reports as per HPI Musc Reports no additional complaints Neuro Reports no additional complaints Psych Reports no additional complaints Endo Reports no additional complaints Enrico/Lymph Reports no additional complaints Aller/Immun Reports no additional complaints Physical Exam Const General: cooperative, healthy appearing, comfortable, no acute distress, well developed, alert and awake Orientation/consciousness: patient oriented x3 Limitations: no limitations HEENT Head: Yes normal to inspection, Yes normocephalic and Yes atraumatic Ears: hearing grossly normal bilaterally Eyes General: appearance normal, both eyes and all related structures Neck Neck: Yes normal visual inspection and Yes trachea midline Chest Chest palpation & inspection: normal inspection of the chest Resp Effort & Inspection: normal respiratory effort and able to speak in complete sentences Cardio Rate: regular rate GI Inspection: Yes normal to inspection General: Yes no CVA tenderness Back/Spine/Pelvis Back: no CVA tenderness Skin General skin exam: no rashes or lesions noted Neuro General: patient oriented x3 Extrem General: Yes normal to inspection Psych Appearance: grossly normal and well kempt Mental Status: mental status grossly normal Speech and movement: Normal speech and movement present and Clear speech present Affect: normal affect Attitude: cooperative Thought process: Normal thought process present Thought content: Normal thought content present Insight: Fair insight present (Psych) Judgement: Fair judgement present (Psych) Results AMB Urinalysis, Automated UA Leukoctes 0 Candelario/uL Last Edit by Irlanda Jensen on 07/03/23 14:53 UA Nitrite Negative Last Edit by Irlanda Jensen on 07/03/23 14:53 UA Urobilinogen 0.2 mg/dL Last Edit by Irlanda Jensen on 07/03/23 14:53 UA Protein 15 mg/dL Last Edit by Irlanda Jensen on 07/03/23 14:53 UA pH 6.0 Last Edit by Irlanda Jensen on 07/03/23 14:53 UA Blood 0 Rizwan/uL Last Edit by Irlanda Jensen on 07/03/23 14:53 UA Specific [place] 1.025 Last Edit by Irlanda Jensen on 07/03/23 14:53 UA Ketone Negative Last Edit by Irlanda Jensen on 07/03/23 14:53 UA Bilirubin 0 mg/dL Last Edit by Irlanda Jensen on 07/03/23 14:53 UA Glucose 0 mg/dL Last Edit by Irlanda Jensen on 07/03/23 14:53 Results Reviewed Results Reviewed: Laboratory Last Values Urine pH (Auto) 6.0 07/03/23 14:51 Specific [place] (Auto) 1.025 07/03/23 14:51 Urine Protein (Auto) 15 mg/dL 07/03/23 14:51 Glucose (UA)(Auto) 0 mg/dL 07/03/23 14:51 Urine Ketones (Auto) Negative 07/03/23 14:51 Urine Blood (Auto) 0 Rizwan/uL 07/03/23 14:51 Urine Nitrite (Auto) Negative 07/03/23 14:51 Urine Bilirubin (Auto) 0 mg/dL 07/03/23 14:51 Urine Urobilinogen (Auto) 0.2 mg/dL 07/03/23 14:51 Leukocyte Esterase (Auto) 0 Candelario/uL 07/03/23 14:51 Date of Service: 06/28/23 STUDY PERFORMED: CT ABDOMEN AND PELVIS WITHOUT CONTRAST HISTORY: Calculus of kidney. DESCRIPTION: Routine abdomen and pelvis CT protocol without contrast was performed. Coronal and sagittal reformatted images. DOSE LOWERING TECHNIQUES: This CT examination was performed using dose optimization techniques as appropriate, variously including the following: - Automated exposure control - Adjustment of mA and/or kV according to patient size (this includes techniques or standardized protocols for targeted exams where dose is matched to indication/reason for exam; i.e. extremities or head) - Use of iterative reconstruction technique DOSE LENGTH PRODUCT: 568.29 mGy-cm COMPARISON: Renal ultrasound 03/27/2023, CT abdomen and pelvis 12/04/2021. FINDINGS: Lung Bases: No suspicious lung nodules. Liver, Gallbladder and Biliary Tree: The liver is normal in size, shape, and attenuation. No focal hepatic lesion or biliary ductal dilatation is present. Cholecystectomy. Pancreas: No discrete pancreatic mass. No pancreatic ductal dilatation. Spleen: Unremarkable. Adrenal Glands: No adrenal mass. Kidneys and Ureters: 2 mm nonobstructing calculus upper left kidney 7.9 cm from posterolateral skin surface. Punctate nonobstructing calculus upper left kidney 7.0 cm from posterolateral skin surface. 2 mm nonobstructing calculus in the lower left kidney 7.9 cm from posterolateral skin surface. Calyceal diverticulum in the posterolateral left upper kidney with layering calculi. 3 mm nonobstructing calculus posterior mid right kidney 7.4 cm from posterolateral skin surface. Punctate nonobstructing calculus lower right kidney 10.9 cm from posterolateral skin surface. Multiple simple parapelvic cysts are seen bilaterally. Simple density cyst in the lower pole right kidney with thin mural calcification (Bosniak 2). No significant change compared to prior. No follow-up imaging is recommended for these cysts. No demonstrable hydronephrosis. No demonstrable ureterolithiasis. Bladder: No bladder calculus. Gastrointestinal Tract: Unchanged dominga mesentery. No bulky mesenteric adenopathy. The small and large bowel are normal in caliber. An appendicolith is seen within the appendix. No evidence of appendicitis. Abdominal Wall: Small fat-containing umbilical hernia. Lymph Nodes: No lymphadenopathy. Vascular: No aortic aneurysm. Pelvic Viscera: Questionable thickening of the endometrium measuring 1.4 cm. Osseous Structures: Degenerative changes in the spine. IMPRESSION: Bilateral nonobstructing renal calculi as measured above. No hydronephrosis. Questionable thickening of the endometrium difficult to evaluate on noncontrast CT. This would need to be correlated with the patient's menstrual status. If the patient is postmenopausal, recommend follow-up pelvic ultrasound for further evaluation. Assessment & Plan Assessment & Plan (1) Multiple renal calculi: Code(s): N20.0 - Calculus of kidney Category: Medical (2) Renal cyst: Code(s): N28.1 - Cyst of kidney, acquired Category: Medical Plan In office urinalysis results reviewed with the patient today; as noted above. Recent renal imaging results reviewed with the patient today; as noted above. Patient currently denies any bothersome urinary issues or concerns. Will continue with surveillance monitoring. Discussed importance of hydration. Discussed, educated, and stressed the importance of drinking plenty of water daily. Continue adding 1 oz of lemon juice to water daily. Continue vitamin B6 as discussed and prescribed. Discussed metabolic workup with 24 hour urine collection and labs; however patient declines at this time. Will obtain renal ultrasound in 1 year. Follow-up in 1 year with imaging to be completed prior; or sooner with any issues, concerns, and or questions. Orders: Orders AMB Urinalysis Automated Today Z13.9 - Encounter for screening, unspecified US renal BI 1 Year N20.0 - Calculus of kidney Patient Instructions: The patient had an opportunity to ask questions regarding the treatment plan. All questions were answered. Physical exam, labs, and imaging were discussed and reviewed in detail. As well as risks, benefits, and discussion of treatment choices. No major barriers to understanding were identified. The patient expressed understanding and agreement with the above treatment plan. The patient was made aware they should contact our office by phone for worsening of their current condition, the appearance of new symptoms, or with any questions or concerns. Compliance is encouraged with any medications and follow up testing that is ordered. It is a privilege to be allowed the opportunity to participate in? your urological care.? Again, if you have any questions or concerns If you have any questions or concerns please do not hesitate to contact me. The office is [phone]. This note is constructed using voice recognition software. While every effort has been made to ensure accuracy automatic dry starch operator errors may have been included. Yours sincerely, GENEVA Jaramillo Coding Level of Care Code Est Pt Level 3 (88872) Diagnoses Multiple renal calculi N20.0 Renal cyst N28.1
== END 2023-07-03 15:14 | disposition home or self-care (01) ==
PROVIDERS: PCP Internal Medicine; Visit Provider Nurse Practitioner Family
DX: N20.0 Calculus of kidney (principal); N28.1 Cyst of kidney, acquired; Z13.9 Encounter for screening, unspecified
CPT/HCPCS: 99213

== ENCOUNTER → 2023-07-03 13:54 | Outpatient (BNVA) | payer OTHER, SELFPAY | PROVIDERS: PCP Internal Medicine; Visit Provider Nurse Practitioner Family | DX: N20.0 Calculus of kidney (principal); N28.1 Cyst of kidney, acquired | CPT/HCPCS: 81003; 99212 ==

== ENCOUNTER 2023-09-26 06:16 | Outpatient (REF) | payer OTHER, SELFPAY ==
[2023-09-26 06:34] LABS: MANUAL DIFF FLAG NO
[2023-09-26 07:27] LABS: Basophils Percent Auto 0.4 % (0-2); Eosinophils Absolute Auto 0.2 X10*3/uL (0.0-0.4); Eosinophils Percent Auto 2.8 % (0-4); Hematocrit 41.7 % (37.0-47.0); Hemoglobin 13.8 g/dl (12.0-16.0); Imm Gran Abs Auto 0.02 X10*3/uL (0.00-0.03); Imm Gran Pct Auto 0.3 % (0.0-0.4); Lymphocytes Absolute Auto 2.9 X10*3/uL (1.2-4.9); Lymphocytes Percent Auto 40.6 % (20-40); Mean Corpuscular HGB Conc 33.1 g/dl (31.0-35.0); Mean Corpuscular Hemoglobin 29.1 pg (27.0-33.0); Mean Corpuscular Volume 87.8 fL (80.0-98.0); Mean Platelet Volume 10.4 fL (9.4-12.3); Monocytes Absolute Auto 0.6 X10*3/uL (0.1-1.2); Monocytes Percent Auto 8.5 % (2-11); NRBC Pct Auto 0.3 /100WBC (0.0-0.2); Neutrophils Absolute Auto 3.4 x10*3/uL (2.0-8.3); Neutrophils Percent Auto 47.4 % (45-73); Platelet Count 257 X10*3/uL (160-400); Red Blood Count 4.75 X10*6/uL (4.20-5.50); Red Cell Distribution Width 13.3 % (11.0-16.0); White Blood Count 7.1 X10*3/uL (4.8-10.8)
[2023-09-26 08:00] LABS: Alanine Aminotransferase 17 U/L (0-31); Alkaline Phosphatase 86 U/L (39-117); Anion Gap 12 (12-20); Aspartate Amino Transferase 20 U/L (5-31); Bilirubin Total 0.5 mg/dL (0.0-1.0); Blood Urea Nitrogen 14 mg/dL (9-16); Calcium 9.6 mg/dL (8.4-10.2); Carbon Dioxide 23 mmol/L (22-29); Chloride 110 mmol/L (96-108); Cholesterol 207 mg/dL (<200); Estimated Glomerular Filt Rate > 60; Glucose Random 89 mg/dL (60-115); HDL Cholesterol 55 mg/dL (>40); LDL Cholesterol Calculated 136 mg/dL (<100); Potassium 4.3 mmol/L (3.3-5.1); Sodium 141 mmol/L (135-145); Total Protein 7.3 g/dL (6.5-8.0); Triglycerides 80 mg/dL (<150)
== END 2023-09-26 06:17 | disposition home or self-care (01) ==
LOC: HO.LAB 06:16
PROVIDERS: PCP Internal Medicine; Visit Provider Internal Medicine
DX: Z00.00 Encounter for general adult medical examination without abnormal findings (principal); E78.00 Pure hypercholesterolemia, unspecified; I10 Essential (primary) hypertension; M54.9 Dorsalgia, unspecified; Z12.4 Encounter for screening for malignant neoplasm of cervix
CPT/HCPCS: 36415; 80053; 80061; 85025

== ENCOUNTER 2024-07-26 14:30 | Outpatient (REF) | payer OTHER, SELFPAY ==
--- NOTE | ~2024-07-26 | US_ITS ---
EXAMINATION: US KIDNEY BILATERAL HISTORY: N20.0 - Calculus of kidney TECHNIQUE: Real-time grayscale ultrasound imaging of the kidneys was performed and images were reviewed. COMPARISON: Comparison is made with the prior examination dated 03/27/2023. FINDINGS: Right kidney: The right kidney measures 11.2 x 6.1 x 5.4 cm. Renal parenchymal echotexture and thickness are normal. Again seen are multiple parapelvic cysts measuring up to 2.4 x 2.4 x 2.6 cm. There is a 4 mm nonobstructing calculus in the interpolar region. There is no hydroureter. Left Kidney: The left kidney measures 10.2 x 5.2 x 4.4 cm. Renal parenchymal echotexture and thickness are normal. Again seen are multiple parapelvic cysts measuring up to 1.6 x 2.9 x 1.6 cm. There is a nonobstructing calculus at the upper pole measuring 9 x 8 x 6 mm and a nonobstructing calculus in the interpolar region measuring 4 mm. There is no hydronephrosis. US/US renal BI IMPRESSION: Bilateral renal parapelvic cysts. Bilateral nephrolithiasis as described, without evidence of ureteral obstruction. Electronically signed by: Steve Mae MD 07/26/2024 03:28 PM EDT
--- OUTSIDE RECORDS SUMMARY | 2024-07-26 14:31 | XMS_ITS | Clinical Summary ---
Author Organization [facility] Address [address] [place] [address] Phone Care Team Providers Care Sales And Distribution Clerk Name Role Phone Virgie Estrella MD Primary Care Provider [phone] Social History Tobacco Use Types Packs/Day Years Used Date Smoking Tobacco: Never Assessed Comments No Sex and Gender Information Value Date Recorded Sex Assigned at Not on file Legal Sex Female 9:52 AM EST Gender Identity Not on file Sexual Orientation Not on file Obstetrics History Para Term AB IAB SAB Ectopic Multiple Livin g Live Births 3 Last Filed Vital Signs Vital Sign Reading Time Taken Comments Blood Pressure - - Pulse - - Temperature - - Respiratory Rate - - Oxygen Saturation - - Inhaled Oxygen Concentration - - Weight 78.9 kg (174 lb) 01/01/2024 2:45 PM EST Height 160 cm (5' 3 ) 01/01/2024 2:45 PM EST Body Mass Index 30.82 01/01/2024 2:45 PM EST Plan of Treatment Health Maintenance Due Date Last Done Comments DTaP,Tdap,and Td Vaccines (1 - Tdap) 01/23/1983 Cervical Cancer Screening: Pap Smear 01/23/1985 Pneumococcal Vaccine: 50+ Years (1 of 1 - PCV) 01/23/2014 Zoster Vaccines (1 of 2) 01/23/2014 Colorectal Cancer Screening: Colonoscopy 01/25/2022 Depression Screening 01/25/2022 HIV Screening 01/25/2022 Hepatitis C Screening 01/25/2022 Social Influencers of Health Screening 01/25/2022 COVID-19 Vaccine ( season) 2023 07/13/2021, 01/06/2021, 11/20/2020, Additional history exists Breast Cancer Screening 12/31/2025 01/01/20, 12/30/2022, 12/27/2021, Additional history exists RSV Immunization Adult Patients (1 - 1-dose 75+ series) 01/23/2039 Influenza Vaccine Completed 10/07/2023, 10/17/2022 HIB Vaccines Aged Out No longer eligi ble based on patient's age to complete this topic HPV Vaccines Aged Out No longer eligi ble based on patient's age to complete this topic Hepatitis A Vaccines Aged Out No long er eligible based on patient's age to complete this topic Hepatitis B Vaccines Aged Out No long er eligible based on patient's age to complete this topic IPV Vaccines Aged Out No longer eligi ble based on patient's age to complete this topic MMR Vaccines Aged Out No longer eligi ble based on patient's age to complete this topic Meningococcal ACWY Vaccine Aged Out N o longer eligible based on patient's age to complete this topic Meningococcal B Vaccine Aged Out No l onger eligible based on patient's age to complete this topic Pneumococcal Vaccine: Pediatrics (0 to 5 Years) and At-Risk Patients (6 to 64 Years) Aged Out No longer eligible based on patient's age to complete this topic RSV Immunization Patients Under 20 months Aged Out No longer eligible based on patient's age to complete this topic Varicella Vaccines Aged Out No longer eligible based on patient's age to complete this topic Procedures Procedure Name Priority Date/Time Associated Diagnosis Comments MG MAMMO DIGITAL SCREENING W CORNELL BILAT Routine 01/01/2024 2:57 PM EST Encounter for screening mammogram for breast cancer from Last 3 Months or Most Recently Relevant to Health Maintenance Results * MG Mammo Digital Screening w Cornell bilat (01/01/2024 2:57 PM EST) Anatomical Region Laterality Modality Breast Bilateral Mammography 01/02/2024 8:02 AM EST Impressions 01/02/2024 8:11 AM EST No mammographic evidence of malignancy. ?? No suspicious interval change. A negative mammogram in the presence of a clinically suspicious palpable abnormality does not preclude the possibility of malignancy or alter the indications for biopsy. ASSESSMENT: ?? BI-RADS 2: BENIGN RECOMMENDATION(S): 1: Routine screening mammogram BILATERAL in 1 year. -------- FINAL REPORT -------- Dictated By: Andres Last Dictated Date: 01/02/2024 08:02 ET Assigned Physician: Andres Last Reviewed and Electronically Signed By: Andres Last Signed Date: 01/02/2024 08:11 ET Workstation ID: [id number] Transcribed By: Self Edit Transcribed Date: 01/02/2024 08:02 ET Narrative 01/02/2024 8:11 AM EST EXAM: ??SCREENING MAMMOGRAPHY, BILATERAL HISTORY: ??SCREENING. ??No additional history. COMPARISON: ??12/30/2022, 12/27/2021, 12/25/2020, 12/24/2019 TECHNIQUE: Synthesized CC and MLO projections of each breast. ??Tomosynthesis of each breast in the CC and MLO projections. ADDITIONAL IMAGING: None Computer-aided detection was employed with the iCAD ??profound AI 3-D. TISSUE DENSITY: The breasts are heterogeneously dense, which may obscure small masses. (BI-RADS category C) FINDINGS: RIGHT BREAST: There are multiple circumscribed equal density oval masses. ??These have typically benign features. ??No additional suspicious right breast findings LEFT BREAST: There are multiple circumscribed equal density oval masses. ??These have typically benign features. ??No additional suspicious left breast findings Procedure Note Andres Last MD - 01/02/2024 EXAM: SCREENING MAMMOGRAPHY, BILATERAL HISTORY: SCREENING. No additional history. COMPARISON: 12/30/2022, 12/27/2021, 12/25/2020, 12/24/2019 TECHNIQUE: Synthesized CC and MLO projections of each breast.Tomosynthesis of each breast in the CC and MLO projections. ADDITIONAL IMAGING: None Computer-aided detection was employed with the iCAD profound AI 3-D. TISSUE DENSITY: The breasts are heterogeneously dense, which may obscuresmall masses. (BI-RADS category C) FINDINGS: RIGHT BREAST: There are multiple circumscribed equal density oval masses. These havetypically benign features. No additional suspicious right breastfindings LEFT BREAST: There are multiple circumscribed equal density oval masses. These havetypically benign features. No additional suspicious left breastfindings IMPRESSION: No mammographic evidence of malignancy. No suspicious interval change. A negative mammogram in the presence of a clinically suspicious palpableabnormality does not preclude the possibility of malignancy or alter theindications for biopsy. ASSESSMENT: BI-RADS 2: BENIGN RECOMMENDATION(S): 1: Routine screening mammogram BILATERAL in 1 year. -------- FINAL REPORT -------- Dictated By: Andres Last Dictated Date: 01/02/2024 08:02 ET Assigned Physician: Andres Last Reviewed and Electronically Signed By: Andres Last Signed Date: 01/02/2024 08:11 ET Workstation ID: [id number] Transcribed By: Self Edit Transcribed Date: 01/02/2024 08:02 ET us Self Referral Sppl IMG BI PROCEDURES Final Resul t from Last 3 Months or Most Recently Relevant to Health Maintenance [place] [address] [place] [address] [employer] Care Teams Sales And Distribution Clerk Relationship Specialty Start Date End Date Virgie Estrella MD [address] [place] [address] [place] [address] PCP - General Internal Medicine 12/16/23
== END 2024-07-26 14:31 | disposition home or self-care (01) ==
LOC: HO.US 14:30
PROVIDERS: PCP Internal Medicine; Visit Provider Nurse Practitioner Family
DX: N20.0 Calculus of kidney (principal)
CPT/HCPCS: 76775

== ENCOUNTER → 2024-07-26 14:31 | Outpatient (BNV) | payer OTHER, SELFPAY | PROVIDERS: PCP Internal Medicine; Visit Provider Radiology Diagnostic Radiology | DX: N28.1 Cyst of kidney, acquired (principal) | CPT/HCPCS: 76775 ==

== ENCOUNTER 2024-09-02 16:19 | Outpatient (AMB) | payer OTHER, SELFPAY ==
--- NOTE | 2024-09-02 16:20 | A.OFFVIS_ITS ---
Intake Visit Reasons: US Follow up(set) Intake Note: Patient presents for tele visit follow up on: kidney stone and ultrasound results Imaging Completed: 07/26/24 Urology Medications: Vitamin B6 Blood Thinner: none Surtass Analyst Required: No Accompanied by: Self / Same As Patient Allergies No Known Allergies Allergy (Verified 09/02/24 22:17) Medication List - Last Reconciled 09/02/24 by LON Jaramillo-NORMA ascorbic acid (vitamin C) (Vitamin C) 500 mg PO DAILY pyridoxine (vitamin B6) 50 mg PO DAILY 90 days salmon oil-omega-3 fatty acids 1,000-210 mg 1 cap PO DAILY HPI Comments Details: Serina is a a pleasant Bulgarian speaking 59-year-old female patient of Dr. Estrella. She is being followed up on today via video telehealth for her nephrolithiasis as well as renal cyst. In discussion with the patient today she reports to be doing and feeling well. She denies having had any bothersome urinary issues or concerns since her last office visit here approximately 1 year ago. Recent renal imaging results were reviewed with the patient and her today. Bilateral kidneys are normal in parenchymal echotexture and thickness. Again bilateral multiple peripelvic cysts are noted. There is a 4 mm nonobstructing calculus in the interpolar region of the right kidney. There is no hydronephrosis. Left kidney with nonobstructing 9 x 8 x 6 mm calculus and 4 mm calculus. No hydronephrosis noted bilaterally. She does report she is attempting to drink plenty of water daily however finds this difficult. We did discuss during last office visit further metabolic workup to include Litholink and labs however patient does not wish to further undergo workup at this time. She denies urinary urgency, urinary frequency, incontinence, nocturia, hematuria, dysuria, foul smelling urine, changes to urinary stream, flank pain, fever, and or chills. She is happy with her current voiding parameters. When asked she reports compliance with vitamin B6 daily. Discussed at length importance of drinking plenty of water daily. She otherwise offers no issues or concerns at this time. [facility] Medical History Family history of GI tract cancer Kidney stones Family History Paternal Uncle Lung cancer Father Esophageal cancer Brother Stomach cancer Social History Household Members: Family Housing: House Do you presently have visiting nurse or other home services: No Alcohol intake: former Patient Tobacco Use Status: Never used Tobacco service: No Current occupational status: employed Female Reproductive History Menstrual Age of Menarche: 12 Review of Systems Const Reports as per HPI Eyes Reports no additional complaints ENT Reports no additional complaints Card Reports no additional complaints Resp Reports no additional complaints GI Reports no additional complaints Reports as per HPI Musc Reports no additional complaints Neuro Reports no additional complaints Psych Reports no additional complaints Endo Reports no additional complaints Enrico/Lymph Reports no additional complaints Aller/Immun Reports no additional complaints Physical Exam Const General: cooperative, healthy appearing, comfortable, no acute distress, well developed, alert and awake Orientation/consciousness: patient oriented x3 Resp Effort & Inspection: normal respiratory effort and able to speak in complete sentences Neuro General: patient oriented x3 Psych Appearance: grossly normal and well kempt Speech and movement: Clear speech present Attitude: cooperative Thought process: Normal thought process present Insight: Fair insight present (Psych) Judgement: Fair judgement present (Psych) Telehealth Telehealth Telehealth Platform: [facility] Location of provider rendering services: practice address Location of patient: address on file Patient Identification confirmed using: Name, : Yes Telehealth method: video Patient verbally consented to treatment: Yes Patient verbally consented to billing insurance company: Yes Patient informed of any privacy concerns related to visit: Yes Minutes spent on Phone/Video with Pt.: 15 Results Reviewed Results Reviewed: Date of Service: 07/26/24 Procedure(s): US renal BI FINDINGS: Right kidney: The right kidney measures 11.2 x 6.1 x 5.4 cm. Renal parenchymal echotexture and thickness are normal. Again seen are multiple parapelvic cysts measuring up to 2.4 x 2.4 x 2.6 cm. There is a 4 mm nonobstructing calculus in the interpolar region. There is no hydroureter. Left Kidney: The left kidney measures 10.2 x 5.2 x 4.4 cm. Renal parenchymal echotexture and thickness are normal. Again seen are multiple parapelvic cysts measuring up to 1.6 x 2.9 x 1.6 cm. There is a nonobstructing calculus at the upper pole measuring 9 x 8 x 6 mm and a nonobstructing calculus in the interpolar region measuring 4 mm. There is no hydronephrosis. IMPRESSION: Bilateral renal parapelvic cysts. Bilateral nephrolithiasis as described, without evidence of ureteral obstruction. Assessment & Plan Assessment & Plan (1) Kidney stones: Code(s): N20.0 - Calculus of kidney Category: Medical (2) Renal cyst: Code(s): N28.1 - Cyst of kidney, acquired Category: Medical Plan Recent renal imaging results reviewed with the patient today; as noted above. We did discussed at length potential causes of nephrolithiasis as well as further interventions and risks and benefits of these interventions. She currently denies any bothersome urinary issues or concerns. She reports be happy with current voiding parameters. Continue vitamin B6 as discussed and prescribed. Continue adding 1 oz of lemon juice to water daily. We did discussed importance of adequate hydration relation to nephrolithiasis as well as overall health and well-being. Will continue with surveillance monitoring of nephrolithiasis as well as renal cysts. We did discussed further workup to include Litholink and labs however patient declines at this time Will obtain renal ultrasound in 1 year. Follow-up 1 year with imaging to be completed prior; or sooner with any issues, concerns, and or questions. Orders: Orders US renal BI 1 Year N20.0 - Calculus of kidney Patient Instructions: The patient had an opportunity to ask questions regarding the treatment plan. All questions were answered. Physical exam, labs, and imaging were discussed and reviewed in detail. As well as risks, benefits, and discussion of treatment choices. No major barriers to understanding were identified. The patient expressed understanding and agreement with the above treatment plan. The patient was made aware they should contact our office by phone for worsening of their current condition, the appearance of new symptoms, or with any questions or concerns. Compliance is encouraged with any medications and follow up testing that is ordered. It is a privilege to be allowed the opportunity to participate in? your urological care.? Again, if you have any questions or concerns If you have any questions or concerns please do not hesitate to contact me. The office is [phone]. This note is constructed using voice recognition software. While every effort has been made to ensure accuracy senior sourcing manager errors may have been included. Yours sincerely, GENEVA Jaramillo Coding Level of Care Code Tele Est Pt Level 3 (09153) Complex EM visit Add On G2211 Diagnoses Kidney stones N20.0 Renal cyst N28.1
--- OUTSIDE RECORDS SUMMARY | 2024-09-02 16:21 | XMS_ITS | Clinical Summary ---
Author Organization [facility] Address [address] [place] [address] Phone Care Team Providers Care Boiler Operators Supervisor Name Role Phone Virgie Estrella MD Primary Care Provider [phone] Social History Tobacco Use Types Packs/Day Years [...] 2023 07/13/2021, 01/06/2021, 11/20/2020, Additional history exists Influenza Vaccine (#1) 2024 10/07/2023, 2022 Breast Cancer Screening 12/31/2025 01/01/20, 12/30/2022, 12/27/2021, Additional history exists RSV Immunization Adult Patients (1 - 1-dose 75+ series) 01/23/2039 HIB Vaccines Aged Out No longer eligi [...] 5 Years) and At-Risk Patients (6 to 49 Years) Aged Out No longer eligible based [...] AM EST No mammographic evidence of malignancy. No suspicious interval change. A negative mammogram in the presence of a clinically suspicious palpable abnormality does not preclude the possibility of malignancy or alter the indications for biopsy. ASSESSMENT: BI-RADS 2: BENIGN RECOMMENDATION(S): 1: Routine screening mammogram BILATERAL in 1 year. -------- FINAL REPORT -------- Dictated By: Andres Last Dictated Date: 01/02/2024 08:02 ET Assigned Physician: Andres Last Reviewed and Electronically Signed By: Andres Last Signed Date: 01/02/2024 08:11 ET Workstation ID: [id number] Transcribed By: Self Edit Transcribed Date: 01/02/2024 08:02 ET Narrative 01/02/2024 8:11 AM EST EXAM: SCREENING MAMMOGRAPHY, BILATERAL HISTORY: SCREENING. No additional history. COMPARISON: 12/30/2022, 12/27/2021, 12/25/2020, 12/24/2019 TECHNIQUE: Synthesized CC and MLO projections of each breast. Tomosynthesis of each breast in the CC and MLO projections. ADDITIONAL IMAGING: None Computer-aided detection was employed with the [employer] AI 3-D. TISSUE DENSITY: The breasts are heterogeneously dense, which may obscure small masses. (BI-RADS category C) FINDINGS: RIGHT BREAST: There are multiple circumscribed equal density oval masses. These have typically benign features. No additional suspicious right breast findings LEFT BREAST: There are multiple circumscribed equal density oval masses. These have typically benign features. No additional suspicious left breast findings Procedure Note Andres Last MD - 01/02/2024 EXAM: SCREENING MAMMOGRAPHY, BILATERAL HISTORY: SCREENING. No additional history. COMPARISON: 12/30/2022, 12/27/2021, 12/25/2020, 12/24/2019 TECHNIQUE: Synthesized CC and MLO projections of each breast.Tomosynthesis of each breast in the CC and MLO projections. ADDITIONAL IMAGING: None Computer-aided detection was employed with the [employer] AI 3-D. TISSUE DENSITY: The breasts are [...] Signed Date: 01/02/2024 08:11 ET Workstation ID: [id number] Transcribed By: Self Edit Transcribed Date: 01/02/2024 08:02 ET us Self Referral Sppl IMG BI PROCEDURES Final Resul t from Last 3 Months or Most Recently Relevant to Health Maintenance Insurance [address] [place] [address] HEALTH PLAN Care Teams Boiler Operators Supervisor Relationship Specialty Start Date End Date Virgie Estrella MD [address] [place] [address] Dr Isela [place] [phone] PCP - General Internal Medicine 12/16/23
== END 2024-09-02 16:40 | disposition home or self-care (01) ==
LOC: HO.HUSH 16:19
PROVIDERS: PCP Internal Medicine; Visit Provider Nurse Practitioner Family
DX: N20.0 Calculus of kidney (principal); N28.1 Cyst of kidney, acquired
CPT/HCPCS: 99213; G2211

== ENCOUNTER 2024-10-17 09:14 | Outpatient (REF) | payer OTHER, SELFPAY ==
--- OUTSIDE RECORDS SUMMARY | 2024-10-17 10:18 | XMS_ITS | Clinical Summary ---
Author Organization [facility] Address [address] [place] [address] Phone Care Team Providers Care Director Work Name Role Phone Virgie Estrella MD Primary Care Provider [phone] Encounters Date Type Department Care Team Description 10/15/2024 Lab Requisition [facility] - Main Lab [address] [facility] [place] [address] Virgie Estrella MD Other contact with and (suspected) exposures hazardous to health from Last 3 Months Social History Tobacco Use Types Packs/Day Years [...] DTaP,Tdap,and Td Vaccines (1 - Tdap) 01/23/1983 Pneumococcal Vaccine: 50+ Years (1 of 1 - PCV) 01/23/2014 Zoster Vaccines (1 of 2) 01/23/2014 Colorectal Cancer Screening: Colonoscopy 01/25/2022 HIV Screening 01/25/2022 Hepatitis C Screening 01/25/2022 Social Influencers of Health Screening 01/25/2022 COVID-19 Vaccine ( season) 2023 07/13/2021, 01/06/2021, 11/20/2020, Additional history exists Depression Screening 02/28/2024 Influenza Vaccine (#1) 2024 10/07/2023, 2022 Breast Cancer Screening 12/31/2025 01/01/20, 12/30/2022, 12/27/2021, Additional history exists Cervical Cancer Screening: HPV 10/14/2029 10/14/2024 RSV Immunization Adult Patients (1 - 1-dose [...] Procedure Name Priority Date/Time Associated Diagnosis Comments HPV WITH REFLEX GENOTYPE Routine 10/14/2024 12:00 PM EDT Other contact with and (suspected) exposures hazardous to health MG MAMMO DIGITAL SCREENING W EARLE BILAT Routine 01/01/2024 2:57 PM EST Encounter for screening mammogram for breast cancer from Last 3 Months or Most Recently Relevant to Health Maintenance Results * HPV with reflex genotype (10/14/2024 12:00 PM EDT) HPV Negative Negative LAB MICROBIOLOGY METHOD 10/15/2024 1:50 PM EDT [facility] Brushing/Spatula Cervix uteri structure / Unknown 10/14/2024 12:00 PM EDT 10/15/2024 6:44 AM EDT us Virgie Estrella MD LAB MOLECULAR DIAGNOSTICS ORD ERABLES Final Result [facility] [address] [place] [address], [place] [phone] * MG Mammo Digital Screening w Earle bilat (01/01/2024 2:57 PM EST) Anatomical Region [...] Signed Date: 01/02/2024 08:11 ET Workstation ID: [id number] Transcribed By: Self Edit Transcribed Date: 01/02/2024 08:02 ET Narrative 01/02/2024 8:11 AM EST EXAM: SCREENING MAMMOGRAPHY, BILATERAL HISTORY: SCREENING. No additional history. COMPARISON: 12/30/2022, 12/27/2021, 12/25/2020, 12/24/2019 TECHNIQUE: Synthesized CC and MLO projections of each breast. Tomosynthesis of each breast in the CC and MLO projections. ADDITIONAL IMAGING: None Computer-aided detection was employed with the [employer] AI 3-D. TISSUE DENSITY: The breasts are [...] Computer-aided detection was employed with the [employer] AI 3-D. TISSUE DENSITY: The breasts are [...] Signed Date: 01/02/2024 08:11 ET Workstation ID: [id number] Transcribed By: Self Edit Transcribed Date: 01/02/2024 08:02 ET us Self Referral Sppl IMG BI PROCEDURES Final Resul t from Last 3 Months or Most Recently Relevant to Health Maintenance Insurance [facility] PLAN Care Teams Director Work Relationship Specialty Start Date End Date Virgie Estrella MD [address] [place] [address] [place] [id number] PCP - General Internal Medicine 12/16/23
[2024-10-17 10:46] LABS: Alanine Aminotransferase 18 U/L (0-31); Albumin Level 4.4 g/dL (3.5-5.0); Alkaline Phosphatase 82 U/L (39-117); Anion Gap 12 (12-20); Aspartate Amino Transferase 20 U/L (5-31); Blood Urea Nitrogen 15 mg/dL (9-16); Calcium 9.4 mg/dL (8.4-10.2); Carbon Dioxide 26 mmol/L (22-29); Chloride 110 mmol/L (96-108); Cholesterol 221 mg/dL (<200); Estimated Glomerular Filt Rate > 60; HDL Cholesterol 53 mg/dL (>40); Potassium 4.6 mmol/L (3.3-5.1); Sodium 143 mmol/L (135-145); Total Protein 7.4 g/dL (6.5-8.0); Triglycerides 96 mg/dL (<150)
== END 2024-10-17 09:15 | disposition home or self-care (01) ==
LOC: HO.LAB 09:14
PROVIDERS: PCP Internal Medicine; Visit Provider Internal Medicine
DX: Z00.00 Encounter for general adult medical examination without abnormal findings (principal); Z12.4 Encounter for screening for malignant neoplasm of cervix; E78.00 Pure hypercholesterolemia, unspecified; N63.21 Unspecified lump in the left breast, upper outer quadrant
CPT/HCPCS: 36415; 80053; 80061

== ENCOUNTER 2024-10-29 10:09 | Outpatient (REF) | payer OTHER, SELFPAY ==
--- NOTE | ~2024-10-29 | MM_ITS ---
EXAMINATION (S): 1. MM DIAGNOSTIC DIGITAL BREAST TOMOSYNTHESIS, BILATERAL 2. Targeted ultrasound of the left breast CLINICAL INFORMATION: Left breast mass at 3 o'clock position. Patient is unable to feel the lump today. COMPARISON: Comparison made to multiple prior, most recent December 30, 2022, and most remote December 24, 2019. TECHNIQUE: Digital breast tomosynthesis is performed in both the mediolateral oblique and craniocaudal views along with computer-aided detection (CAD). Synthesized 2D images are generated from the tomosynthesis. Spot compression tomosynthesis were obtained for the left breast. Tissue marker for lump was not placed as the patient was unable to direct the location. FINDINGS: BREAST COMPOSITION: The breasts are heterogeneously dense, which may obscure small masses (ACR BI-RADS breast composition Category c). RIGHT BREAST: No significant masses, suspicious calcifications or other abnormalities are seen. LEFT BREAST: -Focal asymmetry in the lower breast middle depth partially effaces on the additional views. Targeted ultrasound of the left breast was performed at the location of the mammographic finding. The survey did not reveal suspicious sonographic correlate. Mammographic findings likely represented overlapping fibroglandular breast tissue. -No suspicious calcifications or other abnormalities are seen. Targeted ultrasound of the left breast was performed at the location of the palpable concern along the 3:00 axis. The survey shows a 1.0 x 0.6 x 1.0 cm simple cyst at 3 o'clock position 5 cm from the nipple and 1.3 x 0.6 x 1.0 cm simple cyst at 2 o'clock position 2 cm from the nipple. Additional small cysts were seen during the survey. MM/MM tomosynthesis diagnostic BI IMPRESSION: RIGHT BREAST: Negative, no mammographic evidence of malignancy. Normal interval follow-up is recommended in 12 months. LEFT BREAST: Simple cysts along the 12:00 and 2:00 positions. Benign, no evidence of malignancy. Clinical follow-up is recommended, otherwise, normal interval follow-up mammogram is recommended in 12 months. ASSESSMENT: BI-RADS 2 - Benign Findings RECOMMENDATION: 1. Patient should be managed based on the clinical impression. 2. Otherwise, routine annual screening mammography. Results were provided to the patient at time of visit by the technologist. This patient's information was entered into a reminder system with a target due date for their next mammogram. Electronically signed by: Matthieu Lozano MD 10/29/2024 02:47 PM EDT RP
--- OUTSIDE RECORDS SUMMARY | 2024-10-29 11:36 | XMS_ITS | Clinical Summary ---
Author Organization [facility] Address [address] [place] [address] Phone Care Team Providers Care Senior Cost Accountant Name Role Phone Virgie Estrella MD Primary Care Provider [phone] Encounters Date Type Department Care Team Description 10/15/2024 Lab Requisition [facility] - Main Lab [address] [facility] [place] [address] Virgie Estrella MD Other contact [...] LAB MICROBIOLOGY METHOD 10/15/2024 1:50 PM EDT [facility] Brushing/Spatula Cervix uteri structure / Unknown 10/14/2024 12:00 PM EDT 10/15/2024 6:44 AM EDT us Virgie Estrella MD LAB MOLECULAR DIAGNOSTICS ORD ERABLES Final Result [facility] [address] [place] [address], [place] [phone] * MG Mammo Digital Screening w Earle [...] Signed Date: 01/02/2024 08:11 ET Workstation ID: [id number] Transcribed By: Self Edit Transcribed Date: 01/02/2024 08:02 ET Narrative 01/02/2024 8:11 AM EST EXAM: SCREENING MAMMOGRAPHY, BILATERAL HISTORY: SCREENING. No additional history. COMPARISON: 12/30/2022, 12/27/2021, 12/25/2020, 12/24/2019 TECHNIQUE: Synthesized CC and MLO projections of each breast. Tomosynthesis of each breast in the CC and MLO projections. ADDITIONAL IMAGING: None Computer-aided detection was employed with the [employer] AI 3-D. TISSUE DENSITY: The breasts are [...] Computer-aided detection was employed with the [employer]CAD [employer] AI 3-D. TISSUE DENSITY: The breasts are [...] Signed Date: 01/02/2024 08:11 ET Workstation ID: [id number] Transcribed By: Self Edit Transcribed Date: 01/02/2024 08:02 ET us Self Referral Sppl IMG BI PROCEDURES Final Resul t from Last 3 Months or Most Recently Relevant to Health Maintenance Insurance [facility] [employer] Care Teams Senior Cost Accountant Relationship Specialty Start Date End Date Virgie Estrella MD [address] [place] [address] [place] [address] PCP - General Internal Medicine 12/16/23
--- OUTSIDE RECORDS SUMMARY | 2024-10-29 11:36 | XMS_ITS | Encounter Summary ---
Author Organization [facility] Address [address] [place] [address] Care Team Providers Care Cold Work Operator Name Role Phone Virgie Estrella MD Primary Care Provider [phone] Encounter Details Date Type Department Care Team (Late st Contact Info) Description 10/15/2024 Lab Requisition [facility] - Main Lab [address] [facility] [place] [address] Virgie Estrella MD [address] [place] [address] [place] [address] Other contact with and (suspected) exposures hazardous to health Social History Tobacco Use Types Packs/Day Years Used Date Smoking Tobacco: Never Assessed Comments No Sex and Gender Information Value Date Recorded Sex Assigned at Not on file Legal Sex Female 9:52 AM EST Gender Identity Not on file Sexual Orientation Not on file documented as of this encounter Plan of Treatment Pending Results Name Type Priority Associated Diagnoses Date /Time Pap smear Pathology and Cytology Routine Other contact with and (suspected) exposures hazardous to health 10/14/2024 12:00 PM EDT documented as of this encounter Procedures Procedure Name Priority Date/Time Associated Diagnosis Comments HPV WITH REFLEX GENOTYPE Routine 10/14/2024 12:00 PM EDT Other contact with and (suspected) exposures hazardous to health documented in this encounter Results * HPV with reflex genotype (10/14/2024 12:00 PM EDT) HPV Negative Negative LAB MICROBIOLOGY METHOD 10/15/2024 1:50 PM EDT [facility] Brushing/Spatula Cervix uteri structure / Unknown 10/14/2024 12:00 PM EDT 10/15/2024 6:44 AM EDT us Virgie Estrella MD LAB MOLECULAR DIAGNOSTICS ORD ERABLES Final Result [facility] [address] [place] [address], documented in this encounter Visit Diagnoses Diagnosis Other contact with and (suspected) exposures hazardous to health documented in this encounter Care Teams Cold Work Operator Relationship Specialty Start Date End Date Virgie Estrella MD [address] [place] [address] [place] [phone] PCP - General Internal Medicine 12/16/23 documented as of this encounter
== END 2024-10-29 10:10 | disposition home or self-care (01) ==
LOC: HO.MAMMO 10:09
PROVIDERS: PCP Internal Medicine; Visit Provider Internal Medicine
DX: N64.4 Mastodynia (principal); N63.25 Unspecified lump in the left breast, overlapping quadrants
CPT/HCPCS: 76642; 77062; 77066

== ENCOUNTER → 2024-10-29 10:30 | Outpatient (BNV) | payer OTHER, SELFPAY | PROVIDERS: PCP Internal Medicine; Visit Provider Radiology Body Imaging | DX: N63.21 Unspecified lump in the left breast, upper outer quadrant (principal); N63.23 Unspecified lump in the left breast, lower outer quadrant | CPT/HCPCS: 76642; 77062; 77066 ==

== ENCOUNTER 2025-01-03 13:01 | Outpatient (REF) | payer OTHER, SELFPAY ==
--- NOTE | ~2025-01-03 | US_ITS ---
CLINICAL HISTORY: N20.0 - Calculus of kidney US Renal Comparison: 07/26/2024 02:47 PM EDT: [place]: US KIDNEY BILATERAL (01:47 PM CDT Findings: Right kidney normal size and echotexture, 12.2 cm length. Left kidney normal size and echotexture, 11.1 cm length. There are left renal parenchymal calculi. Moderate collecting system dilatation of bilateral kidney. Normal color Doppler. IMPRESSION: 1. Moderate bilateral hydronephrosis. This document has been electronically signed by: Golden Riojas MD on 01/05/2025 09:16:07
== END 2025-01-03 13:02 | disposition home or self-care (01) ==
LOC: HO.HMGCX 13:01
PROVIDERS: PCP Internal Medicine; Visit Provider Nurse Practitioner Family
DX: N20.0 Calculus of kidney (principal)
CPT/HCPCS: 76775

== ENCOUNTER → 2025-01-03 13:06 | Outpatient (BNV) | payer OTHER, SELFPAY | PROVIDERS: PCP Internal Medicine; Visit Provider Specialist | DX: N13.2 Hydronephrosis with renal and ureteral calculous obstruction (principal) | CPT/HCPCS: 76775 ==

== ENCOUNTER 2025-02-25 12:49 | Outpatient (REF) | payer OTHER, SELFPAY ==
--- OUTSIDE RECORDS SUMMARY | 2025-02-12 09:40 | XMS_ITS ---
Author Organization [facility] Address [address] [place] [address] Care Team Providers Care Non Destructive Evaluation Technician Name Role Phone Virgie Estrella Primary Care Provider Unavailab Steve Thakur [phone] Allergies No Known Allergies REASON FOR VISIT Patient presents today for screening colonoscopy Medications Medication SIG (Take, Route, Frequency, Duration) Notes Start Date End Date Status Tamsulosin HCl 0.4 MG Capsule Oral; Duration: 90 Days Acti ve Social History Tobacco Use: Social History Observation Description Date Details (start date - stop date) Never Smoker NA - NA Social History Drug/Alcohol: Social Info Question Answer Notes AUDIT-C (Standard) Did you have a drink containing alcohol in the past year? 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 Section Notes: Nonsmoker; no alcohol Problems Problem Type SNOMED Code ICD Code Onset Dates Problem Status W/U Status Risk Notes Problem Colon cancer screening (325470520) Colon cancer screening (Z12.11) Active confirmed Problem Preprocedural examination (169968826773484) Preprocedural examination (Z01.818) Active confirmed Vital Signs Blood pressure systolic 001 mm Hg 02/13/20 25 Blood pressure diastolic 01 mm Hg 025 Height 63 in 02/12/2025 Weight 178.2 lbs 02/12/2025 BMI 31.56 kg/m2 02/12/2025 Encounters Encounter Location Date Provider Diagnosis [facility] [address] [place] [address] 02/12/2025 Steve Stout Colon cancer screeni ng Z12.11 and Preprocedural examination Z01.818 Assessments Encounter Date Diagnosis (ICD Code) Assessment Notes Treatment Notes Treatment Clinical Notes Section Notes 02/12/2025 Colon cancer screening (ICD-10 - Z12.11) Overall, Gunjan appears well. Given her age, excellent clinical appearance, and negative colonoscopy 10 years ago, I did recommend a follow-up colonoscopy for further screening purposes. We did review the rationale for this in regard to colon cancer prevention. Full consent has been attained for this, including risks of bleeding and perforation. The procedure will be done with monitored anesthesia care. Gunjan was comfortable with this plan. Thank you again for allowing me to participate in Gunjan's care. I shall continue to keep you advised of her progress. 02/12/2025 Preprocedural examination (ICD-10 - Z01.818) Overall, Gunjan appears well. Given her age, excellent clinical appearance, and negative colonoscopy 10 years ago, I did recommend a follow-up colonoscopy for further screening purposes. We did review the rationale for this in regard to colon cancer prevention. Full consent has been attained for this, including risks of bleeding and perforation. The procedure will be done with monitored anesthesia care. Gunjan was comfortable with this plan. Thank you again for allowing me to participate in Gunjan's care. I shall continue to keep you advised of her progress. Plan Of Treatment Future Test Test Name Order Date COLONOSCOPY 02/12/2025 Next Appt Details Provider Name:Steve Stout , 05/02/2025 07:30:00 AM, [address] [place] [address], [id number], History and Physical Notes * HPI (History of Present Illness) Category Sub-Category Detail Notes Category Not es incontinence I saw Gunjan in the office today for evaluation of colorectal cancer screening. As you know, Gunjan is a healthy 60-year-old female who presently feels well. She describes a negative colonoscopy at [facility] with a different physician at age 50. She reports that this was negative and was advised to have a repeat exam in 10 years. She enjoys a good appetite and denies any significant heartburn or dysphagia. She denies any abdominal pain, jaundice, nor unintentional weight loss. She denies any change in bowel habits, hematochezia, nor melena. She denies any known family history of colorectal cancer. Laboratories earlier this year revealed normal chemistries and renal function and normal LFTs. She had a normal CBC in 2023. Progress Notes * GUNJAN ESPINOSADOB:1965 (60 yo F)Acc No.[id number]:02/12/2025 Progress Notes Patient: GUNJAN JOHNSON Provider: Kimmy Stout MD :1965 A ge:60 Y S ex:Female Date:02/12/2025 Address:[address] [place], [place] [id number] Pcp:Virgie Estrella Subjective: * Chief Complaints: * P atient presents today for screening colonoscopy * HPI: i ncontinence: I saw Gunjan in the office today for evaluation of colorectal cancer screening. As you know, Gunjan is a healthy 60-year-old female who presently feels well. She describes a negative colonoscopy at [facility] with a different physician at age 50. She reports that this was negative and was advised to have a repeat exam in 10 years. She enjoys a good appetite and denies any significant heartburn or dysphagia. She denies any abdominal pain, jaundice, nor unintentional weight loss. She denies any change in bowel habits, hematochezia, nor melena. She denies any known family history of colorectal cancer. Laboratories earlier this year revealed normal chemistries and renal function and normal LFTs. She had a normal CBC in 2023. * Medical History: Kidney stones- sees [facility] Urology Denies CA,DM,CVA,renal disease Negative colonoscopy at [facility] at age 50 Mild asthma Hypercholesterolemia Negative screening colonoscopy at age 50 at [facility] by her report Medical History Verified * Surgical History: CCY Surgical History verified. * Hospitalization/Major Diagno stic Procedure: No Hospitalization Documented. Hospitalization Verified. * Family History: F ather: . M other: . F amily History Verified.. No family hx of colon or liver cancer. * Social History: T obacco Use: T obacco Control (Standard) T obacco use: N onsmoker. M iscellaneous: M arital status: . 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 D rug/Alcohol: A YURI-C (Standard) D id you have a drink containing alcohol in the past year? N o,?Points 0 , I nterpretation N egative. Social History Verified. N onsmoker; no alcohol. * Medications: T akingTamsulosin HCl 0.4 MG Capsule Oral Medication List reviewed and reconciled with the patientTaking Tamsulosin HCl 0.4 MG Capsule Oral Medication List reviewed and reconciled with the patient * Allergies: N .K.D.A.yesAllergies Verified. Objective: * Vitals: W t: 178.2 lbs, Ht: 63 in, BMI:31.56Index, BP: 001/01 mm Hg, Ht-cm: 160.02 cm, Wt- k.83 kg. Assessment: * Assessment: 1. C olon cancer screening - Z12.11 (Primary) 2 . P reprocedural examination - Z01.818 Overall, Gunjan appears well. Given her age, excellent clinical appearance, and negative colonoscopy 10 years ago, I did recommend a follow-up colonoscopy for further screening purposes. We did review the rationale for this in regard to colon cancer prevention. Full consent has been attained for this, including risks of bleeding and perforation. The procedure will be done with monitored anesthesia care. Gunjan was comfortable with this plan. Thank you again for allowing me to participate in Gunjan's care. I shall continue to keep you advised of her progress. Plan: * Treatment: * Preventive Medicine: Counseling: C are goal follow-up plan: A gabby Normal BMI Follow-up D ietary management education, guidance, and counseling, B CA management provided Y es. Billing Information: * Procedure Codes: * The named appointment provid er may or may not be the originator of this progress note, and it is not deemed complete until electronically signed by the appointment provider. Sign off status: Pending * Provider: Kimmy Stout MD Date: 04/15/2024 Generated for Kimberly kendall/Danita/Ashley on: 04:41 PM EST
--- NOTE | ~2025-02-25 | US_ITS ---
EXAMINATION: US PELVIS LIMITED (BLADDER) CLINICAL INFORMATION: History of kidney stones.. COMPARISON: None available. TECHNIQUE: Real-time imaging of the bladder. FINDINGS: BLADDER: The bladder is distended. Bilateral ureteral jets are demonstrated. Prevoid bladder volume is 243.5 mL. Postvoid bladder volume is 15.9 mL. US/US bladder IMPRESSION: Unremarkable bladder ultrasound.. Electronically signed by: Dominik Craft MD 02/25/2025 01:37 PM EST
--- OUTSIDE RECORDS SUMMARY | 2025-02-25 16:41 | XMS_ITS | Encounter Summary ---
Author Organization [facility] Address [address] [place] [address] Care Team Providers Care Web Designer Developer Name Role Phone Virgie Estrella MD Primary Care Provider [phone] Encounter Details Date Type Department Care Team (Late st Contact Info) Description 10/15/2024 Lab Requisition [facility] - Main Lab [address] [facility] [place] [address] Virgie Estrella MD [address] [place] [address] [place] [address] Other contact with and (suspected) exposures hazardous to health Social History Tobacco Use Types Packs/Day Years Used Date Smoking Tobacco: Never Assessed Comments No Sex and Gender Information Value Date Recorded Sex Assigned at Not on file Legal Sex Female 9:52 AM EST Gender Identity Not on file Sexual Orientation Not on file documented as of this encounter Plan of Treatment Not on file documented as of this encounter Procedures Procedure Name Priority Date/Time Associated Diagnosis Comments HPV WITH REFLEX GENOTYPE Routine 10/14/2024 12:00 PM EDT Other contact with and (suspected) exposures hazardous to health PAP SMEAR Routine 10/14/2024 12:00 PM EDT Other contact with and (suspected) exposures hazardous to health documented in this encounter Results * HPV with reflex genotype (10/14/2024 12:00 PM EDT) HPV Negative Negative LAB MICROBIOLOGY METHOD 10/15/2024 1:50 PM EDT [facility] Brushing/Spatula Cervix uteri structure / Unknown 10/14/2024 12:00 PM EDT 10/15/2024 6:44 AM EDT us Virgie Estrella MD LAB MOLECULAR DIAGNOSTICS ORD ERABLES Final Result [facility] [address] [place] [address], * Pap smear (10/14/2024 12:00 PM EDT) Interpretation Negative for intraepithelial lesion or malignancy 11/11/2024 8:58 AM EDT [facility] at 0858 EDT General Categorization Negative 11/11/2024 8:58 AM EDT [facility] Specimen Adequacy Satisfactory for evaluation, endocervical/leonard sformation zone component present 11/11/2024 8:58 AM EDT [facility] Pap Methodology Liquid Based Pap Test 11/11/2024 8:58 AM EDT [facility] Disclaimer The Pap test is a screening test which carries an inherent false negative rate. These test results should be correlated with the patient's clinical findings and history. This Pap test was processed using an automated screening system. Technical cytopathology services provided by [facility], at [address] [place] [address] (CLIA # [id number]/Mechelle Walls MD, Venipuncturist.) 11/11/2024 8:58 AM EDT [facility] Console Pap Interpretation Reported 11/11/2024 8:58 AM T [facility] Brushing/Spatula Cervix uteri structure / Unknown 10/14/2024 12:00 PM EDT 10/15/2024 6:44 AM EDT us Virgie Estrella MD LAB CYTOLOGY ORDERABLES Final Result [facility] [address] [place] [address], documented in this encounter Visit Diagnoses Diagnosis Other contact with and (suspected) exposures hazardous to health documented in this encounter Care Teams Web Designer Developer Relationship Specialty Start Date End Date Virgie Estrella MD [address] [place] [address] [place] [address] PCP - General Internal Medicine 12/16/23 documented as of this encounter
--- OUTSIDE RECORDS SUMMARY | 2025-02-25 16:41 | XMS_ITS | Clinical Summary ---
Author Organization [facility] Address [address] [place] [address] Phone Care Team Providers Care Inorganic Chemistry Teacher Name Role Phone Virgie Estrella MD Primary Care Provider [phone] Social History Tobacco Use Types Packs/Day Years [...] Health Maintenance Due Date Last Done Comments Colorectal Cancer Screening: Colonoscopy 1965 DTaP,Tdap,and Td Vaccines (1 - Tdap) 01/23/1983 Pneumococcal Vaccine: 50+ Years (1 of 1 - PCV) 01/23/2014 Zoster Vaccines (1 of 2) 01/23/2014 HIV Screening 01/25/2022 Hepatitis C Screening 01/25/2022 Social Influencers of Health Screening 01/25/2022 Depression Screening 02/28/2024 COVID-19 Vaccine ( season) 2024 07/13/2021, 01/06/2021, 11/20/2020, Additional history exists Influenza [...] LAB MICROBIOLOGY METHOD 10/15/2024 1:50 PM EDT [facility] Brushing/Spatula Cervix uteri structure / Unknown 10/14/2024 12:00 PM EDT 10/15/2024 6:44 AM EDT us Virgie Estrella MD LAB MOLECULAR DIAGNOSTICS ORD ERABLES Final Result [facility] [address] [place] [address], [place] [phone] * MG Mammo Digital Screening w Earle [...] Signed Date: 01/02/2024 08:11 ET Workstation ID: [id number] Transcribed By: Self Edit Transcribed Date: 01/02/2024 08:02 ET Narrative 01/02/2024 8:11 AM EST EXAM: SCREENING MAMMOGRAPHY, BILATERAL HISTORY: SCREENING. No additional history. COMPARISON: 12/30/2022, 12/27/2021, 12/25/2020, 12/24/2019 TECHNIQUE: Synthesized CC and MLO projections of each breast. Tomosynthesis of each breast in the CC and MLO projections. ADDITIONAL IMAGING: None Computer-aided detection was employed with the iCAD [place] AI 3-D. TISSUE DENSITY: The breasts are [...] Signed Date: 01/02/2024 08:11 ET Workstation ID: [id number] Transcribed By: Self Edit Transcribed Date: 01/02/2024 08:02 ET us Self Referral Sppl IMG BI PROCEDURES Final Resul t from Last 3 Months or Most Recently Relevant to Health Maintenance Insurance [facility] [employer] Care Teams Inorganic Chemistry Teacher Relationship Specialty Start Date End Date Virgie Estrella MD [address] [place] [address] [place] [address] PCP - General Internal Medicine 12/16/23
--- OUTSIDE RECORDS SUMMARY | 2025-02-25 16:42 | XMS_ITS | Patient Health Record ---
Author Organization [facility] Address [address] [place] [address] Care Team Providers Care Collar Band Creaser Name Role Phone Virgie Estrella Primary Care Provider Steve Caceres Unavailable [phone] Allergies No Known Allergies Reason For Referral No Information Medications Medication SIG (Take, Route, Frequency, Duration) Notes Start Date End Date Status Tamsulosin HCl 0.4 MG Capsule Oral; Duration: 90 Days Acti ve Immunizations Vaccine Route Administration Date Status Comme nts Influenza Unknown 02/13/2024 Administered Social History Tobacco Use: Social History Observation [...] Info Options Details Miscellaneous: Marital status: 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 Section Notes: Nonsmoker; no alcohol Problems Problem Type SNOMED Code ICD Code Onset Dates Problem Status W/U Status Risk Notes Problem Colon cancer screening (509701550) Colon cancer screening (Z12.11) Active confirmed Problem Preprocedural examination (253776197751498) Preprocedural examination (Z01.818) Active confirmed Vital Signs Blood pressure diastolic 01 mm Hg 02/12/2025 Height 63 in 02/12/2025 Blood pressure systolic 001 mm Hg 02/12/2025 Weight 178.2 lbs 02/12/2025 BMI 31.56 kg/m2 02/12/2025 Encounters Encounter Location Date Provider Diagnosis [facility] [address] [place] [address] 02/12/2025 Steve Stout Colon cancer screeni ng Z12.11 and Preprocedural examination Z01.818 [facility] [address] [place] [address] 02/12/2025 Steve Stout Assessments Encounter Date Diagnosis (ICD Code) Assessment [...] Provider Name:Steve Stout , 05/02/2025 07:30:00 AM, [address] [place] [address] , [place], [place], [phone], Insurance Providers Payer Name Payer Address Payer Phone Subscriber Number Group Number Insured Name Patient Relationship to Insured Coverage Start Date Coverage End Date [facility] [employer] [facility] [address] [address] [place], [place] [id number] Self - patient is the insured Medical (General) History Medical History History ICD Code Kidney stones- sees [facility] Urology Denies MA,DM,CVA,renal disease Negative colonoscopy at [facility] at age 50 Mild asthma Hypercholesterolemia Negative screening colonoscopy at age 50 at [facility] by her report Surgical History Surgery Date(Month/Year) CCS[facility]
== END 2025-02-25 12:50 ==
LOC: HO.HMGCX 12:49
PROVIDERS: PCP Internal Medicine; Visit Provider Nurse Practitioner Family
DX: N20.0 Calculus of kidney (principal)
CPT/HCPCS: 76857

== ENCOUNTER → 2025-02-25 12:56 | Outpatient (BNV) | payer OTHER, SELFPAY | PROVIDERS: PCP Internal Medicine; Visit Provider Radiology Diagnostic Radiology | DX: Z87.442 Personal history of urinary calculi (principal) | CPT/HCPCS: 76857 ==